=== PATIENT | female | born 1970 | race Caucasian/White ===

== ENCOUNTER 2017-10-09 18:26 | Emergency (ER) | payer SELFPAY ==
[~2017-10-09] VITALS: Ht 160 cm; Wt 101.6 kg
[~2017-10-09 18:26] MED LIST: AGM875T PO; BACL10TA PO; BUSP10TA95 PO; CIPR500T4 PO; DICL75TA2 PO; DOXY100C2 PO; DULO60CA6 PO; FAMO20TA5 PO; FLUC200T PO; GEMF600T3 PO; HYDR-3720 PO; HYDR1TAB PO; MELO7.5T; METF500T4 PO; METO-451 PO; MTP25TSR PO; NF-CYM60C; NYST1000 PO; ONDN4T PO; OXYC1TAB87; ROPI1TAB; SULF1TAB38; SULF1TAB38 PO; VENL75CA PO
--- OUTSIDE RECORDS SUMMARY | 2017-10-09 18:31 | XMS REPORT ---
Author Author MICHELLE VANN [facility] eClinicalWorks Address Unknown Phone Unavailable Care Team Providers Care Paperhanger Name Role Phone MICHELLE VANN Unavailable Allergies No Known Allergies Problems Problem Type Condition Code Onset Dates Condition Status Assessment Depression F32.9 Active Assessment Anxiety F41.9 Active Assessment Degenerative disc disease at L5-S1 level M51.36 Active Assessment Hyperlipidemia 272.4 Active Assessment HTN (hypertension) I10 Active Problem Pain in soft tissues of limb 729.5 Active Assessment Diabetes mellitus E11.9 Active Problem Edema 782.3 Active Problem Depressive disorder, not elsewhere classified 311 Active Problem Hypertension 401.9 Active Problem Type 2 diabetes mellitus 250.00 Active Problem Hyperlipidemia 272.4 Active Problem Anxiety F41.9 Active Problem Depression F32.9 Active Problem Lumbago 724.2 Active Problem Acute pharyngitis 462 Active Problem Degenerative disc disease at L5-S1 level M51.36 Active Problem Other general symptoms 780.99 Active Problem Low back pain M54.5 Active Problem Diabetes type 2, uncontrolled 250.02 Active Problem HTN (hypertension) I10 Active Problem Diabetes mellitus E11.9 Active Problem Unspecified otalgia 388.70 Active Problem Unspecified viral infection, in conditions classified elsewhere and of unspecified site 079.99 Active Problem Routine general medical examination at health care facility V70.0 Active Problem Benign intracranial hypertension 348.2 Active Problem Influenza with other respiratory manifestations 487.1 Active Problem Unspecified otitis media 382.9 Active Problem Pain in joint, upper arm 719.42 Active Problem Restless legs syndrome [RLS] 333.94 Active Medications Medication Code System Code Instructions Start Date End Date Status Dosage Gemfibrozil [facility] [address]-92 600 MG Orally once a day 1 tablet BusPIRone HCl [facility] [address]-15 10 MG Orally Twice a day 1 tablet Hydrocodone-Acetaminophen [facility] [address]-86 10-325 MG Orally every 4-6 hrs. MUST LAST 30 DAYS Jun 25, 2015 1 tablet as needed for pain Effexor XR [facility] [address]-84 75 MG Orally Once a day 1 capsule with food Metoprolol Tartrate [facility] [address]-10 100 MG Orally Twice a day Jul 03, 2015 1 tablet Baclofen [facility] [address]-38 10 MG Orally Three times a day 1 tablet with food or milk MetFORMIN HCl ER [facility] [address]-78 500 MG Orally 2 times a day TAKE ONE TABLET BY MOUTH DAILY Procedures Procedure Coding System Code Date COMPLETE CBC W/AUTO DIFF WBC CPT-4 94607 Jul 24, 2015 COMPREHEN METABOLIC PANEL CPT-4 14723 Jul 24, 2015 GLYCATED HEMOGLOBIN TEST CPT-4 09543 Jul 24, 2015 VENIPUNCT, ROUTINE* CPT-4 42170 Jul 24, 2015 URINALYSIS, AUTO, W/O SCOPE CPT-4 49169 Jul 24, 2015 ASSAY THYROID STIM HORMONE CPT-4 87005 Jul 24, 2015 LIPID PANEL CPT-4 01550 Jul 24, 2015 Office Visit, Est Pt., Level 4 CPT-4 55937 Jul 24, 2015 MICROALBUMIN, SEMIQUANT CPT-4 61167 Jul 24, 2015 Vital Signs Date/Time: Jul 24, 2015 Temperature 98.2 F Weight 220.6 lbs Height 63 in BMI 39.07 Index Blood Pressure Diastolic 80 mmHg Blood Pressure Systolic 130 mmHg Cardiac Monitoring Heart Rate 84 bpm Results Name Result Date Reference Range Unit Abnormality Flag UA LONG DIP (IN HOUSE) ----pH 5.0 20150724 ----BLO Negative 20150724 ----Clarity Cloudy 20150724 ----Color Yellow 20150724 ----Odor NO 20150724 ----GLU Negative 20150724 ----SUMAN Negative 20150724 ----DEEPIKA Negative 20150724 ----NIT Negative 20150724 ----KET Negative 20150724 ----Lot # [id number] [id number] ----SG >=1.030 20150724 ----URO 0.2 E.U. 20150724 ----Exp date 20150724 ----Protein Negative 20150724 ROUTINE VENIPUNCTURE A1C (IN HOUSE) ----A1C IN HOUSE 6.1 20150724 4.30 - 5.6 % ----Previous A1c 6.2 20150724 ----Lot # [id number] ----Exp date 20150724 MICROALBUMIN, URINE (IN HOUSE) ----A:C (IN HOUSE) <30 20150724 ----CRE 300 20150724 ----Color yellow 20150724 ----ALB 30 20150724 ----Exp date 20150724 ----Clarity clear 20150724 ----Lot # [id number] LIPID PANEL ----HDL Cholesterol 36 20150724 >39 mg/dL L ----Triglycerides 840 20150724 0-149 mg/dL HH ----Cholesterol, Total 372 20150724 100-199 mg/dL H CMP ----Glucose, Serum 108 15456113 65-99 mg/dL H ----BUN 10 20150724 6-24 mg/dL ----Creatinine, Serum 0.49 98498043 0.57-1.00 mg/dL L ----Potassium, Serum 4.7 20150724 3.5-5.2 mmol/L ----Chloride, Serum 97 45652825 97-108 mmol/L ----ALT (SGPT) 55 20150724 0-32 IU/L H ----AST (SGOT) 34 20150724 0-40 IU/L ----eGFR If NonAfricn Am 119 63538536 >59 mL/min/1.73 ----Alkaline Phosphatase, S 135 43140933 39-117 IU/L H ----eGFR If Africn Am 137 91333875 >59 mL/min/1.73 ----Bilirubin, Total 0.3 20150724 0.0-1.2 mg/dL ----BUN/Creatinine Ratio 20 20150724 9-23 ----A/G Ratio 1.6 20150724 1.1-2.5 ----Sodium, Serum 137 20150724 134-144 mmol/L ----Carbon Dioxide, Total 25 20150724 18-29 mmol/L ----Calcium, Serum 9.7 86613605 8.7-10.2 mg/dL ----Protein, Total, Serum 6.9 02778333 6.0-8.5 g/dL ----Albumin, Serum 4.2 28949603 3.5-5.5 g/dL ----Globulin, Total 2.7 46452702 1.5-4.5 g/dL TSH ----TSH 1.590 01630300 0.450-4.500 uIU/mL CBC ----Hemoglobin 14.6 86582505 11.1-15.9 g/dL ----RBC 4.70 35555940 3.77-5.28 x10E6/uL ----MCV 92 14072890 79-97 fL ----Hematocrit 43.3 50369397 34.0-46.6 % ----MCHC 33.7 78384401 31.5-35.7 g/dL ----MCH 31.1 06052801 26.6-33.0 pg ----Platelets 391 38699521 150-379 x10E3/uL H ----RDW 13.5 41688442 12.3-15.4 % ----Neutrophils 67 54544267 % ----Monocytes 6 88032575 % ----Lymphs 26 55152101 % ----Basos 0 41664833 % ----Eos 1 03808464 % ----Immature Grans (Abs) 0.0 42703979 0.0-0.1 x10E3/uL ----Lymphs (Absolute) 3.2 20849735 0.7-3.1 x10E3/uL H ----WBC 12.0 18575052 3.4-10.8 x10E3/uL H ----Immature Granulocytes 0 79911825 % ----Neutrophils (Absolute) 7.9 13686290 1.4-7.0 x10E3/uL H ----Baso (Absolute) 0.0 60236779 0.0-0.2 x10E3/uL ----Monocytes(Absolute) 0.7 93022444 0.1-0.9 x10E3/uL ----Eos (Absolute) 0.1 57854773 0.0-0.4 x10E3/uL Summary Purpose eClinicalWorks Submission
--- OUTSIDE RECORDS SUMMARY | 2017-10-09 18:31 | XMS REPORT ---
Author Author TIA MO [facility] eClinicalWorks Address Unknown Phone Unavailable Care Team Providers Care Film Or Tape Librarian Name Role Phone TIA MO CP Unavailable Allergies No Known Allergies Problems Problem Type Condition ICD-9 Code Onset Dates Condition Status Problem Pain in joint, upper arm 719.42 Active Problem Influenza with other respiratory manifestations 487.1 Active Problem Restless legs syndrome [RLS] 333.94 Active Problem Type 2 diabetes mellitus 250.00 Active Problem Hyperlipidemia 272.4 Active Problem Diabetes type 2, uncontrolled 250.02 Active Problem Pain in soft tissues of limb 729.5 Active Problem Unspecified otitis media 382.9 Active Problem Hypertension 401.9 Active Problem Edema 782.3 Active Problem Depressive disorder, not elsewhere classified 311 Active Problem Other general symptoms 780.99 Active Problem Routine general medical examination at health care facility V70.0 Active Problem Benign intracranial hypertension 348.2 Active Problem Acute pharyngitis 462 Active Problem Unspecified otalgia 388.70 Active Problem Lumbago 724.2 Active Problem Unspecified viral infection, in conditions classified elsewhere and of unspecified site 079.99 Active Medications Medication Code System Code Instructions Start Date End Date Status Dosage Hydrocodone-Acetaminophen [facility] [address]-62 10-325 MG October 14, 2014 1 Tablet by Oral route every 4-6 hours must last 30 days. use for pain Results No Known Results Summary Purpose eClinicalWorks Submission
--- OUTSIDE RECORDS SUMMARY | 2017-10-09 18:31 | XMS REPORT ---
Author Author MICHELLE VANN [facility] eClinicalWorks Address Unknown Phone Unavailable Care Team Providers Care Muck Miner Name Role Phone MICHELLE VANN CP Unavailable Allergies No Known Allergies Problems Problem Type Condition Code Onset Dates Condition Status Problem Hypertension 401.9 Active Problem Type 2 diabetes mellitus 250.00 Active Problem Hyperlipidemia 272.4 Active Problem Anxiety F41.9 Active Problem Lumbago 724.2 Active Problem Depression F32.9 Active Problem Acute pharyngitis 462 Active Problem Other general symptoms 780.99 Active Problem Degenerative disc disease at L5-S1 level M51.36 Active Problem Low back pain M54.5 Active [...] in joint, upper arm 719.42 Active Problem Pain in soft tissues of limb 729.5 Active Problem Depressive disorder, not elsewhere classified 311 Active Problem Restless legs syndrome [RLS] 333.94 Active Problem Edema 782.3 Active Medications Medication Code System Code Instructions Start Date End Date Status Dosage Hydrocodone-Acetaminophen [facility] [address]-56 10-325 MG Orally every 4-6 hrs Jun 25, 2015 1 tablet as needed for pain Results No Known Results Summary Purpose eClinicalWorks Submission
--- OUTSIDE RECORDS SUMMARY | 2017-10-09 18:31 | XMS REPORT ---
Author Author CHIOMA TELLEZ [facility] Address [address] [place] [address] Care Team Providers Care Ham Marker Name Role Phone CHIOMA TELLEZ Unavailable PROBLEMS Type Condition ICD9-CM Code [id number] Code Onset Dates Condition Status SNOMED Code Problem Tachycardia R00.0 Active 1687186 Problem Hyperlipidemia E78.5 Active 32147630 Problem Hypertension I10 Active 92744501 Problem Hyperlipidemia, mixed E78.2 Active 714453966 Problem Hypertension, benign I10 Active 27750532 Problem Essential hypertension I10 Active 22311312 Problem Restless leg syndrome G25.81 Active 51638819 Problem Controlled type 2 diabetes mellitus without complication, without long -term current use of insulin E11.9 Active 534906900 Problem Mixed hyperlipidemia E78.2 Active 031703754 Problem HTN (hypertension) I10 Active 87376437 Problem Depression F32.9 Active 79595000 Problem Low back pain M54.5 Active 883618726 Problem Anxiety F41.9 Active 12781380 Problem Diabetes mellitus E11.9 Active 56342978 Problem Degenerative disc disease at L5-S1 level M51.36 Active 10790108 ALLERGIES No Information SOCIAL HISTORY Never Assessed PLAN OF CARE VITAL SIGNS MEDICATIONS Unknown Medications RESULTS No Results PROCEDURES No Known procedures IMMUNIZATIONS No Known Immunizations MEDICAL (GENERAL) HISTORY Type Description Date Medical History Hypertension Medical History obesity Medical History Type 2 Diabetes Medical History Hyperlipidemia Medical History PCOS Medical History skin disorder 03/16/11 Recurrent left breast mass & breast US at reveals addition cyst 7-6 o clock position inferior to nipple with nipple retraction Medical History breast abscess left causing left nipple retraction I & D by Dr. dumont in ER Medical History Depression Surgical History Cholecystectomy 1993 Surgical History Tonsillectomy Surgical History Bladder surgery Surgical History Breast surgery Surgical History section Hospitalization History past surgery
--- OUTSIDE RECORDS SUMMARY | 2017-10-09 18:32 | XMS REPORT ---
Author Author MICHELLE VANN Organization [facility] Address [address] [place] [address] Care Team Providers Care Power Equipment Mechanics Instructor Name Role Phone MICHELLE VANN Unavailable PROBLEMS Type Condition ICD9-CM Code [id number] Code Onset Dates Condition Status SNOMED Code Problem Tachycardia R00.0 Active 8656686 Problem Hypertension I10 Active 16395485 Problem Hyperlipidemia E78.5 Active 17561961 Problem Hyperlipidemia, mixed E78.2 Active 707653624 Problem Hypertension, benign I10 Active 98806440 Problem Essential hypertension I10 Active 86792002 Problem Restless leg syndrome G25.81 Active 21699808 Problem Mixed hyperlipidemia E78.2 Active 026523573 Problem Controlled type 2 diabetes mellitus without complication, without long -term current use of insulin E11.9 Active 554670019 Problem HTN (hypertension) I10 Active 72360539 Problem Depression F32.9 Active 13817631 Problem Low back pain M54.5 Active 929250694 Problem Anxiety F41.9 Active 26776138 Problem Diabetes mellitus E11.9 Active 63904431 Problem Degenerative disc disease at L5-S1 level M51.36 Active 56774783 ALLERGIES Unknown Allergies SOCIAL HISTORY No smoking Hx information available PLAN OF CARE VITAL SIGNS MEDICATIONS Unknown Medications RESULTS No Results PROCEDURES No Known procedures IMMUNIZATIONS No Known Immunizations
--- OUTSIDE RECORDS SUMMARY | 2017-10-09 18:32 | XMS REPORT ---
Author Author CHIOMA TELLEZ Organization [facility] Address [address] [place] [address] Care Team Providers Care Bone Worker Name Role Phone CHIOMA TELLEZ Unavailable PROBLEMS Type Condition ICD9-CM Code [id number] Code Onset Dates Condition Status SNOMED Code Problem Tachycardia R00.0 Active 4171805 Problem Hyperlipidemia E78.5 Active 65661508 Problem Hypertension I10 Active 80730443 Problem Hyperlipidemia, mixed E78.2 Active 149580116 Problem Hypertension, benign I10 Active 62047473 Problem Essential hypertension I10 Active 77897455 Problem Restless leg syndrome G25.81 Active 35626808 Problem Controlled type 2 diabetes mellitus without complication, without long -term current use of insulin E11.9 Active 257695861 Problem Mixed hyperlipidemia E78.2 Active 229551532 Problem HTN (hypertension) I10 Active 89396276 Problem Depression F32.9 Active 40554257 Problem Low back pain M54.5 Active 598625193 Problem Anxiety F41.9 Active 53250751 Problem Diabetes mellitus E11.9 Active 94634622 Problem Degenerative disc disease at L5-S1 level M51.36 Active 56049632 ALLERGIES No Information SOCIAL HISTORY Never Assessed PLAN OF CARE VITAL SIGNS MEDICATIONS Medication Instructions Dosage Frequency Start Date End Date Duration Status Hydrocodone-Acetaminophen 10-325 MG Orally 4 times a day 1 tablet as needed for pain 6h Sep, 28 days Active RESULTS No Results PROCEDURES No Known procedures [...]
--- OUTSIDE RECORDS SUMMARY | 2017-10-09 18:32 | XMS REPORT ---
Author Author MICHELLE VANN [facility] eClinicalWorks Address Unknown Phone Unavailable Care Team Providers Care Smasher Name Role Phone MICHELLE VANN CP Unavailable Allergies, Adverse Reactions, Alerts Substance Reaction Event Type N.K.D.A. Info Not Available Non Drug Allergy Problems Problem Type Condition Code Onset Dates Condition Status Assessment Diabetes mellitus E11.9 Active Problem Restless legs syndrome [RLS] 333.94 Active Assessment HTN (hypertension) I10 Active Problem Influenza with other respiratory manifestations 487.1 Active Assessment Adenopathy R59.1 Active Problem Unspecified otitis media 382.9 Active Problem Edema 782.3 Active Problem Pain in soft tissues of limb 729.5 Active Problem Diabetes mellitus E11.9 Active Problem Low back pain M54.5 Active Problem Depressive disorder, not elsewhere classified 311 Active Assessment Calculus of tonsil J35.8 Active Problem HTN (hypertension) I10 Active Assessment Sore throat J02.9 Active Problem Hyperlipidemia 272.4 Active Problem Hypertension 401.9 Active Problem Diabetes type 2, uncontrolled 250.02 Active Problem Type 2 diabetes mellitus 250.00 Active Problem Lumbago 724.2 Active Problem Routine general medical examination at health care facility V70.0 Active Problem Other general symptoms 780.99 Active Problem Acute pharyngitis 462 Active Problem Unspecified viral infection, in conditions classified elsewhere and of unspecified site 079.99 Active Problem Pain in joint, upper arm 719.42 Active Problem Benign intracranial hypertension 348.2 Active Problem Unspecified otalgia 388.70 Active Medications Medication Code System Code Instructions Start Date End Date Status Dosage Metoprolol Tartrate [facility] [address]-77 100 MG Orally Twice a day Jul 03, 2015 1 tablet Hydrocodone-Acetaminophen [facility] [address]-48 10-325 MG Orally every 4-6 hrs. MUST LAST 30 DAYS Jun 25, 2015 1 tablet as needed for pain Effexor XR [facility] [address]-16 75 MG Orally Once a day 1 capsule with food BusPIRone HCl [facility] [address]-42 10 MG Orally Twice a day 1 tablet Augmentin [facility] [address]-61 875-125 MG Orally every 12 hrs Jul 03, 2015 Jul 13, 2015 1 tablet MetFORMIN HCl ER [facility] [address]-87 500 MG Orally 2 times a day TAKE ONE TABLET BY MOUTH DAILY Diflucan [facility] [address]-42 100 MG Orally Jul 03, 2015 Jul 10, 2015 1 tablet Metoprolol Tartrate [facility] [address]-01 50 MG Orally Twice a day 1 tablet Gemfibrozil [facility] [address]-71 600 MG Orally once a day 1 tablet Blood Glucose Monitor [facility] 0 March 04, 2015 not defined Baclofen [facility] [address]-84 10 MG Orally Three times a day 1 tablet with food or milk Procedures Procedure Coding System Code Date Office Visit, Est Pt., Level 4 CPT-4 66030 Jul 03, 2015 MANUAL CELL COUNT, EACH CPT-4 00897 Jul 03, 2015 HETEROPHILE ANTIBODIES CPT-4 68623 Jul 03, 2015 STREP A ASSAY W/OPTIC CPT-4 64756 Jul 03, 2015 VENIPUNCT, ROUTINE* CPT-4 82442 Jul 03, 2015 THER/PROPH/DIAG INJ, SC/IM CPT-4 93623 Jul 03, 2015 DEXAMETHASONE 4MG/ML (PER 1 MG) CPT-4 J1100 Jul 03, 2015 Vital Signs Date/Time: Jul 03, 2015 Temperature 98.0 F Weight 221.6 lbs Height 63 in BMI 39.25 Index Blood Pressure Diastolic 94 mmHg Blood Pressure Systolic 150 mmHg Cardiac Monitoring Heart Rate 72 bpm Results Name Result Date Reference Range Unit Abnormality Flag ROUTINE VENIPUNCTURE MONO TEST (IN HOUSE) ----RESULTS negative [id number] ----Control + 20150703 ----Lot # [id number] ----Exp date 07/06/201620150703 STREP A (IN HOUSE) ----Exp date 07/06/201620150703 ----Control + 20150703 ----Lot # [id number] [id number] ----STREP A negative [id number] Summary Purpose eClinicalWorks Submission
--- OUTSIDE RECORDS SUMMARY | 2017-10-09 18:32 | XMS REPORT ---
Author Author MICHELLE VANN [facility] eClinicalWorks Address Unknown Phone Unavailable Care Team Providers Care Automobile Assembly Supervisor Name Role Phone MICHELLE VANN Unavailable Allergies No Known Allergies Problems Problem Type Condition Code Onset Dates Condition Status Problem Diabetes mellitus E11.9 Active Problem Depression F32.9 Active Problem HTN (hypertension) I10 Active Problem Low back pain M54.5 Active Problem Restless leg syndrome G25.81 Active Problem Hypertension I10 Active Problem Essential hypertension I10 Active Problem Degenerative disc disease at L5-S1 level M51.36 Active Problem Anxiety F41.9 Active Problem Hyperlipidemia E78.5 Active Problem Tachycardia R00.0 Active Medications Medication Code System Code Instructions Start Date End Date Status Dosage Effexor XR [facility] [address]-85 75 MG Orally Once a day 1 capsule with food Results No Known Results Summary Purpose eClinicalWorks Submission
--- OUTSIDE RECORDS SUMMARY | 2017-10-09 18:32 | XMS REPORT ---
Author Author CHIOMA TELLEZ [facility] Address [address] [place] [address] Care Team Providers Care Wildlife Management Professor Name Role Phone CHIOMA TELLEZ Unavailable PROBLEMS Type Condition ICD9-CM Code [id number] Code Onset Dates Condition Status SNOMED Code Problem HTN (hypertension) I10 Active 10103781 Problem Anxiety F41.9 Active 40329970 Problem Depression F32.9 Active 41588073 Problem Low back pain M54.5 Active 630803151 Problem Diabetes mellitus E11.9 Active 07542416 Problem Essential hypertension I10 Active 74352552 Problem Restless leg syndrome G25.81 Active 24055129 Problem Tachycardia R00.0 Active 8105552 Problem Degenerative disc disease at L5-S1 level M51.36 Active 90421336 Problem Hypertension I10 Active 09244098 Problem Hyperlipidemia E78.5 Active 77019925 ALLERGIES Unknown Allergies SOCIAL HISTORY No smoking Hx information available PLAN OF CARE VITAL SIGNS MEDICATIONS Medication Instructions Dosage Frequency Start Date End Date Duration Status Hydrocodone-Acetaminophen 10-325 MG Orally 4 times a day 1 tablet as needed for pain 6h Jun, 28 days Active RESULTS No Results PROCEDURES No Known procedures IMMUNIZATIONS No Known Immunizations
--- OUTSIDE RECORDS SUMMARY | 2017-10-09 18:32 | XMS REPORT ---
Author Author CHIOMA TELLEZ [facility] Address [address] [place] [address] Care Team Providers Care Developer Prover Upholstering Name Role Phone ROSALINDA CHIOMA Unavailable PROBLEMS Type Condition ICD9-CM Code [id number] Code Onset Dates Condition Status SNOMED Code Problem Tachycardia R00.0 Active 2664338 Problem Hyperlipidemia E78.5 Active 38290016 Problem Hypertension I10 Active 43207470 Problem Hyperlipidemia, mixed E78.2 Active 694593648 Problem Hypertension, benign I10 Active 85782276 Problem Essential hypertension I10 Active 16592924 Problem Restless leg syndrome G25.81 Active 83542318 Problem Controlled type 2 diabetes mellitus without complication, without long -term current use of insulin E11.9 Active 852112512 Problem Mixed hyperlipidemia E78.2 Active 276545698 Problem HTN (hypertension) I10 Active 23035979 Problem Depression F32.9 Active 84741693 Problem Low back pain M54.5 Active 410789082 Problem Anxiety F41.9 Active 57702051 Problem Diabetes mellitus E11.9 Active 17496425 Problem Degenerative disc disease at L5-S1 level M51.36 Active 67473173 ALLERGIES Unknown Allergies SOCIAL HISTORY No smoking Hx information available PLAN OF CARE VITAL SIGNS MEDICATIONS Medication Instructions Dosage Frequency Start Date End Date Duration Status Hydrocodone-Acetaminophen 10-325 MG Orally 4 times a day 1 tablet as needed for pain 6h Aug, 28 days Active RESULTS No Results PROCEDURES No Known procedures IMMUNIZATIONS No Known Immunizations
--- OUTSIDE RECORDS SUMMARY | 2017-10-09 18:32 | XMS REPORT ---
Author Author TIA MO [facility] eClinicalWorks Address Unknown Phone Unavailable Care Team Providers Care Ehs Teacher Name Role Phone TIA MO CP Unavailable [...] Instructions Start Date End Date Status Dosage MetFORMIN HCl [facility] [address]-07 500 MG Orally 2 times a day TAKE ONE TABLET BY MOUTH DAILY Results No Known Results Summary Purpose eClinicalWorks Submission
--- OUTSIDE RECORDS SUMMARY | 2017-10-09 18:32 | XMS REPORT ---
Author Author CHIOMA TELLEZ [facility] Address [address] [place] [address] Care Team Providers Care Assistant Construction Superintendent Name Role Phone CHIOMA TELLEZ Unavailable PROBLEMS Type Condition ICD9-CM Code YYY46-CT Code Onset Dates Condition Status SNOMED Code Problem Tachycardia R00.0 Active 7154868 Problem Hyperlipidemia E78.5 Active 58405165 Problem Hypertension I10 Active 16547544 Problem Hyperlipidemia, mixed E78.2 Active 091438700 Problem Hypertension, benign I10 Active 19936597 Problem Essential hypertension I10 Active 32723276 Problem Restless leg syndrome G25.81 Active 86759320 Problem Controlled type 2 diabetes mellitus without complication, without long -term current use of insulin E11.9 Active 456887448 Problem Mixed hyperlipidemia E78.2 Active 881876278 Problem HTN (hypertension) I10 Active 68353208 Problem Depression F32.9 Active 75128335 Problem Low back pain M54.5 Active 547974788 Problem Anxiety F41.9 Active 00835302 Problem Diabetes mellitus E11.9 Active 79369396 Problem Degenerative disc disease at L5-S1 level M51.36 Active 45411410 ALLERGIES No Known Allergies SOCIAL HISTORY Never Assessed PLAN OF CARE Activity Details Follow Up 10 days Reason:staple removal VITAL SIGNS Height 63 in 2016-09-20 Weight 227.0 lbs 2016-09-20 Temperature 98.5 degrees Fahrenheit 2016-09-20 Heart Rate 88 bpm 2016-09-20 Respiratory Rate 20 2016-09-20 BMI 40.21 kg/m2 2016-09-20 Blood pressure systolic 150 mmHg 2016-09-20 Blood pressure diastolic 93 mmHg 2016-09-20 MEDICATIONS Medication Instructions Dosage Frequency Start Date End Date Duration Status Baclofen 10 mg 1 tablet 8h Active Effexor XR 75 MG Orally Once a day 1 capsule with food 24h 30 days Active MetFORMIN HCl ER 500 MG 1 tablet 12h Active Ibuprofen 200 MG Orally every 6 hrs 2 tablets as needed 6h Active Simvastatin 20 mg Orally Once a day 1 tablet in the evening 24h 16 Aug, 2017 30 day(s) Active Hydrocodone-Acetaminophen 10-325 MG Orally 4 times a day 1 tablet as needed for pain 6h Aug, 28 days Active Requip 3 MG 1 tablet 24h Active Metoprolol Tartrate 100 MG Orally Twice a day 1 tablet 12h Active RESULTS Name Result Date Reference Range PDF Report 2016-09-20 PDF Report1 [facility]Y REPORT 2016-09-20 . . . . . . . . PROCEDURES Procedure Date Ordered Result Body Site EXC BENIGN LEISON 0.6-1 cm (specify location) 2016-09-20 N/A BIOPSY SKIN LESION (SINGLE) 2016-09-20 N/A EXC TR-EXT B9 TAL 0.6-1 CM Sep 20, 2016 BIOPSY OF SKIN LESION Sep 20, 2016 IMMUNIZATIONS No Known Immunizations MEDICAL (GENERAL) HISTORY [...]
--- OUTSIDE RECORDS SUMMARY | 2017-10-09 18:32 | XMS REPORT ---
Author Author MICHELLE VANN [facility] eClinicalWorks Address Unknown Phone Unavailable Care Team Providers Care Production Weigher Name Role Phone MICHELLE VANN CP Unavailable [...] Instructions Start Date End Date Status Dosage Atorvastatin Calcium [facility] [address]-12 10 MG Orally Once a day Jul 27, 2015 1 tablet Lopid [facility] [address]-81 600 MG Orally Twice a day Jul 27, 2015 1 tablet Results No Known Results Summary Purpose eClinicalWorks Submission
--- OUTSIDE RECORDS SUMMARY | 2017-10-09 18:32 | XMS REPORT ---
Author Author MADHU BALDERAS [facility] eClinicalWorks Address Unknown Phone Unavailable Care Team Providers Care Metallurgist Helper Name Role Phone MADHU BALDERAS CP Unavailable Allergies, Adverse Reactions, Alerts Substance Reaction Event Type N.K.D.A. Info Not Available Non Drug Allergy Problems Problem Type Condition Code Onset Dates Condition Status Problem Low back pain M54.5 Active Problem HTN (hypertension) I10 Active Problem Diabetes mellitus E11.9 Active Assessment Sore throat J02.9 Active Problem Hypertension I10 Active Problem Hyperlipidemia E78.5 Active Problem Restless leg syndrome G25.81 Active Problem Anxiety F41.9 Active Problem Depression F32.9 Active Problem Tachycardia R00.0 Active Problem Degenerative disc disease at L5-S1 level M51.36 Active Medications Medication Code System Code Instructions Start Date End Date Status Dosage Acyclovir [facility] [address]-99 400 MG Orally Three times a day Mar 23, 2016 1 tablet MetFORMIN HCl ER [facility] [address]-45 500 MG Orally 2 times a day TAKE ONE TABLET BY MOUTH DAILY Zocor [facility] [address]-23 10 mg Orally Once a day October 27, 2015 1 tablet in the evening Requip [facility] [address]-80 3 MG Orally Once a day November 24, 2015 1 tablet 1 to 3 hours before bedtime Blood Glucose Monitor [facility] 0 March 04, 2015 not defined Hydrocodone-Acetaminophen [facility] [address]-39 10-325 MG Orally 4 times a day Jun 25, 2015 1 tablet as needed for pain Effexor XR [facility] [address]-89 75 MG TAKE ONE CAPSULE BY MOUTH ONCE DAILY WITH FOOD Ibuprofen [facility] [address]-19 200 MG Orally every 6 hrs 2 tablets as needed Baclofen [facility] [address]-17 10 mg Orally Three times a day 1 tablet with food or milk Lopid [facility] [address]-07 600 MG Orally Twice a day Jul 27, 2015 1 tablet Metoprolol Tartrate [facility] 69216853785 100 MG Orally Twice a day 1 tablet Procedures Procedure Coding System Code Date Office Visit, Est Pt., Level 3 CPT-4 07680 Mar 23, 2016 STREP A ASSAY W/OPTIC CPT-4 41607 Mar 23, 2016 Vital Signs Date/Time: Mar 23, 2016 Cardiac Monitoring Heart Rate 90 bpm Weight 214.3 lbs Height 63 in BMI 37.96 Index Blood Pressure Diastolic 82 mmHg Blood Pressure Systolic 136 mmHg Results No Known Results Summary Purpose eClinicalWorks Submission
--- OUTSIDE RECORDS SUMMARY | 2017-10-09 18:32 | XMS REPORT ---
Author Author DOTNE KRISHNAN Organization eClinicalWorks Address Unknown Phone Unavailable Care Team Providers Care Diamond Cutter Name Role Phone DONTE KRISHNAN CP Unavailable Allergies No Known Allergies Problems Problem Type Condition Code Onset Dates Condition Status Problem Pain [...] and of unspecified site 079.99 Active Medications No Known Medications Results No Known Results Summary Purpose eClinicalWorks Submission
--- OUTSIDE RECORDS SUMMARY | 2017-10-09 18:33 | XMS REPORT ---
Author Author MICHELLE VANN [facility] eClinicalWorks Address Unknown Phone Unavailable Care Team Providers Care Cna Instructor Name Role Phone MICHELLE VANN CP Unavailable Allergies, Adverse Reactions, Alerts Substance Reaction Event Type N.K.D.A. Info Not Available Non Drug Allergy Problems Problem Type Condition Code Onset Dates Condition Status Problem Diabetes mellitus E11.9 Active Problem Depression F32.9 Active Problem HTN (hypertension) I10 Active Problem Restless leg syndrome G25.81 Active Problem Hypertension I10 Active Problem Essential hypertension I10 Active Problem Degenerative disc disease at L5-S1 level M51.36 Active Problem Anxiety F41.9 Active Problem Hyperlipidemia E78.5 Active Problem Tachycardia R00.0 Active Assessment Essential hypertension I10 Active Assessment Hyperlipidemia E78.5 Active Assessment History of kidney stones Z87.442 Active Assessment Anxiety F41.9 Active Assessment Diabetes mellitus E11.9 Active Assessment Restless leg syndrome G25.81 Active Assessment Low back pain M54.5 Active Assessment Depression F32.9 Active Problem Low back pain M54.5 Active Medications Medication Code System Code Instructions Start Date End Date Status Dosage Zocor [facility] [address]-05 10 mg Orally Once a day October 27, 2015 1 tablet in the evening Effexor XR [facility] [address]-46 75 MG TAKE ONE CAPSULE BY MOUTH ONCE DAILY WITH FOOD Baclofen [facility] [address]-71 10 mg Orally Three times a day 1 tablet with food or milk Ibuprofen [facility] [address]-71 200 MG Orally every 6 hrs 2 tablets as needed MetFORMIN HCl ER [facility] [address]-16 500 MG Orally 2 times a day TAKE ONE TABLET BY MOUTH DAILY Metoprolol Tartrate [facility] 36326298263 100 MG Orally Twice a day 1 tablet Requip [facility] [address]-71 3 MG Orally Once a day November 24, 2015 1 tablet 1 to 3 hours before bedtime Hydrocodone-Acetaminophen [facility] [address]-17 10-325 MG Orally 4 times a day Jun 25, 2015 1 tablet as needed for pain Procedures Procedure Coding System Code Date GLYCATED HEMOGLOBIN TEST CPT-4 69554 May 26, 2016 COMPREHEN METABOLIC PANEL CPT-4 96109 May 26, 2016 URINALYSIS, AUTO, W/O SCOPE CPT-4 61808 May 26, 2016 LIPID PANEL CPT-4 94767 May 26, 2016 COMPLETE CBC W/AUTO DIFF WBC CPT-4 60084 May 26, 2016 VENIPUNCT, ROUTINE* CPT-4 55467 May 26, 2016 Office Visit, Est Pt., Level 4 CPT-4 21001 May 26, 2016 Vital Signs Date/Time: May 26, 2016 Cardiac Monitoring Heart Rate 60 bpm Weight 216.8 lbs Height 63 in BMI 38.40 Index Blood Pressure Diastolic 90 mmHg Blood Pressure Systolic 138 mmHg Results Name Result Date Reference Range Unit Abnormality Flag ROUTINE VENIPUNCTURE CBC ----Basos 0 25196390 % ----MCV 94 41167608 79-97 fL ----Hematocrit 42.2 97354297 34.0-46.6 % ----Eos 1 32548283 % ----MCHC 32.9 01379153 31.5-35.7 g/dL ----Monocytes 9 14724479 % ----MCH 31.0 15791227 26.6-33.0 pg ----Lymphs 27 15128056 % ----Eos (Absolute) 0.1 86537920 0.0-0.4 x10E3/uL ----WBC 7.0 59376668 3.4-10.8 x10E3/uL ----Monocytes(Absolute) 0.7 87757423 0.1-0.9 x10E3/uL ----Lymphs (Absolute) 1.9 14278898 0.7-3.1 x10E3/uL ----Hemoglobin 13.9 92687049 11.1-15.9 g/dL ----Neutrophils (Absolute) 4.3 02785176 1.4-7.0 x10E3/uL ----RBC 4.49 02935094 3.77-5.28 x10E6/uL ----Immature Grans (Abs) 0.0 80079972 0.0-0.1 x10E3/uL ----Immature Granulocytes 0 37892905 % ----Neutrophils 63 48636100 % ----Baso (Absolute) 0.0 45234053 0.0-0.2 x10E3/uL ----RDW 13.6 42698660 12.3-15.4 % ----Platelets 366 52855357 150-379 x10E3/uL A1C (IN HOUSE) ----A1C IN HOUSE 6.0 01369172 4.3 - 5.6 % ----Previous A1c 5.6 33181708 ----Lot [id number] ----Exp date 03/20181020 UA LONG DIP (IN HOUSE) ----DEEPI[place] NEGATIVE 53346039 ----GLU NEGATIVE 73762042 ----SG 1.020 19867459 ----KET NEGATIVE 52562669 ----pH 7.0 00163284 ----Protein NEGATIVE 22120822 ----BLO NEGATIVE 77518687 ----SUMAN NEGATIVE 55051827 ----Color Cloudy 34970202 ----Odor no 02364984 ----Exp date 04/2017 [id number] ----URO 0.2 25604880 ----NIT NEGATIVE 24925389 ----Clarity clear 02930015 ----Lot # [id number] LIPID PANEL ----LDL Cholesterol Calc 127 79258129 0-99 mg/dL H ----VLDL Cholesterol Asa 74 73760638 5-40 mg/dL H ----HDL Cholesterol 32 89187124 >39 mg/dL L ----Triglycerides 368 11637471 0-149 mg/dL H ----Cholesterol, Total 233 78214514 100-199 mg/dL H CMP ----Creatinine, Serum 0.52 41254602 0.57-1.00 mg/dL L ----BUN 9 29789390 6-24 mg/dL ----eGFR If Africn Am 133 28288004 >59 mL/min/1.73 ----eGFR If NonAfricn Am 116 86337361 >59 mL/min/1.73 ----Sodium, Serum 140 87829529 136-144 mmol/L ----BUN/Creatinine Ratio 17 26160355 9-23 ----Chloride, Serum 100 58993673 97-106 mmol/L ----Potassium, Serum 4.3 72865809 3.5-5.2 mmol/L ----Carbon Dioxide, Total 24 99771572 18-29 mmol/L ----Protein, Total, Serum 6.7 92831466 6.0-8.5 g/dL ----Calcium, Serum 9.1 57466434 8.7-10.2 mg/dL ----Globulin, Total 2.7 48428821 1.5-4.5 g/dL ----Albumin, Serum 4.0 35903187 3.5-5.5 g/dL ----Bilirubin, Total 0.2 42581260 0.0-1.2 mg/dL ----Glucose, Serum 110 24559553 65-99 mg/dL H ----A/G Ratio 1.5 52545779 1.1-2.5 ----ALT (SGPT) 28 10344991 0-32 IU/L ----Alkaline Phosphatase, S 113 42976795 39-117 IU/L ----AST (SGOT) 16 35155396 0-40 IU/L Summary Purpose eClinicalWorks Submission
--- OUTSIDE RECORDS SUMMARY | 2017-10-09 18:33 | XMS REPORT ---
Author Author SHELLIE SCHNEIDER [facility] eClinicalWorks Address Unknown Phone Unavailable Care Team Providers Care Rivet Flunky Name Role Phone SHELLIE SCHNEIDER CP Unavailable Allergies, Adverse Reactions, Alerts Substance Reaction Event Type N.K.D.A. Info Not Available Non Drug Allergy Problems Problem Type Condition Code Onset Dates Condition Status Problem Low back pain M54.5 Active Problem HTN (hypertension) I10 Active Problem Diabetes mellitus E11.9 Active Problem Hypertension I10 Active Problem Hyperlipidemia E78.5 Active Problem Restless leg syndrome G25.81 Active Problem Anxiety F41.9 Active Problem Depression F32.9 Active Problem Tachycardia R00.0 Active Problem Degenerative disc disease at L5-S1 level M51.36 Active Assessment Exertional shortness of breath R06.02 Active Assessment Palpitations R00.2 Active Assessment Pain in unspecified joint M25.50 Active Assessment Low back pain M54.5 Active Assessment Hyperlipidemia E78.5 Active Assessment Hypertension I10 Active Assessment Tobacco use Z72.0 Active Assessment Diabetes mellitus E11.9 Active Assessment Obesity E66.9 Active Assessment Chest discomfort R07.89 Active Medications Medication Code System Code Instructions Start Date End Date Status Dosage Effexor XR [facility] [address]-13 75 MG Orally Once a day 1 capsule with food Ropinirole HCl [facility] [address]-30 2 MG Orally Once a day October 26, 2015 1 tablet 1-3 hours before bed Ibuprofen [facility] [address]-05 200 MG Orally every 6 hrs 2 tablets as needed Zocor [facility] [address]-15 10 MG Orally Once a day October 27, 2015 1 tablet in the evening Lopid [facility] [address]-38 600 MG Orally Twice a day Jul 27, 2015 1 tablet MetFORMIN HCl ER [facility] [address]-51 500 MG Orally 2 times a day TAKE ONE TABLET BY MOUTH DAILY Hydrocodone-Acetaminophen [facility] [address]-87 10-325 MG Orally every 4-6 hrs Jun 25, 2015 1 tablet as needed for pain Metoprolol Tartrate [facility] [address]-16 100 MG Orally Twice a day Jul 03, 2015 1 tablet Blood Glucose Monitor [facility] 0 March 04, 2015 not defined Procedures Procedure Coding System Code Date Office Visit, Est Pt., Level 5 CPT-4 49175 November 18, 2015 MEASURE BLOOD OXYGEN LEVEL CPT-4 42995 November 18, 2015 Vital Signs Date/Time: November 18, 2015 Cardiac Monitoring Heart Rate 72 bpm Weight 220 lbs Height 63 in BMI 38.97 Index Oximetry 98 % Blood Pressure Diastolic 82 mmHg Blood Pressure Systolic 124 mmHg Results No Known Results Summary Purpose eClinicalWorks Submission
--- OUTSIDE RECORDS SUMMARY | 2017-10-09 18:33 | XMS REPORT ---
Author Author MICHELLE VANN Organization [facility] Address [address] [place] [address] Care Team Providers Care Locomotive Engineer Name Role Phone SOO MICHELLE Unavailable PROBLEMS Type Condition ICD9-CM Code NUD78-BH Code Onset Dates Condition Status SNOMED Code Problem Tachycardia R00.0 Active 5985724 Problem Hypertension I10 Active 43667204 Problem Hyperlipidemia E78.5 Active 56034457 Problem Hyperlipidemia, mixed E78.2 Active 041189225 Problem Hypertension, benign I10 Active 73298380 Problem Essential hypertension I10 Active 81728713 Problem Restless leg syndrome G25.81 Active 07949009 Problem Mixed hyperlipidemia E78.2 Active 921433429 Problem Controlled type 2 diabetes mellitus without complication, without long -term current use of insulin E11.9 Active 672985749 Problem HTN (hypertension) I10 Active 82595509 Problem Depression F32.9 Active 65910708 Problem Low back pain M54.5 Active 791939521 Problem Anxiety F41.9 Active 08025118 Problem Diabetes mellitus E11.9 Active 11471723 Problem Degenerative disc disease at L5-S1 level M51.36 Active 43953484 ALLERGIES Unknown Allergies SOCIAL HISTORY No smoking Hx information available PLAN OF CARE VITAL SIGNS MEDICATIONS Medication Instructions Dosage Frequency Start Date End Date Duration Status Hydrocodone-Acetaminophen 10-325 MG Orally 4 times a day 1 tablet as needed for pain 6h Aug, Aug, 14 days Active RESULTS No Results PROCEDURES No Known procedures IMMUNIZATIONS No Known Immunizations
--- OUTSIDE RECORDS SUMMARY | 2017-10-09 18:33 | XMS REPORT ---
Author Author TIA MO [facility] eClinicalWorks Address Unknown Phone Unavailable Care Team Providers Care Payroll And Benefits Analyst Name Role Phone TIA MO CP Unavailable [...] Active Problem Other general symptoms 780.99 Active Assessment Lumbago M54.5 Active Problem Routine general medical examination at health care facility V70.0 Active Problem Benign intracranial hypertension 348.2 Active Problem Acute pharyngitis 462 Active Problem Unspecified otalgia 388.70 Active Problem Lumbago 724.2 Active Problem Unspecified viral infection, in conditions classified elsewhere and of unspecified site 079.99 Active Medications Medication Code System Code Instructions Start Date End Date Status Dosage Hydrocodone-Acetaminophen [facility] [address]-77 10-325 MG Orally every 4-6 hrs October 14, 2014 May 27, 2015 1 Tablet by Oral route every 4-6 hours must last 30 days. use for pain Results No Known Results Summary Purpose eClinicalWorks Submission
--- OUTSIDE RECORDS SUMMARY | 2017-10-09 18:33 | XMS REPORT ---
Author Author DALLAS BALBUENA [facility] eClinicalWorks Address Unknown Phone Unavailable Care Team Providers Care Manager Social Services Name Role Phone DALLAS BALBUENA CP Unavailable Allergies, Adverse Reactions, Alerts Substance Reaction Event Type N.K.D.A. Info Not Available Non Drug Allergy Problems Problem Type Condition Code Onset Dates Condition Status Problem Restless legs syndrome [RLS] 333.94 Active Problem Unspecified otitis media 382.9 Active Problem Influenza with other respiratory manifestations 487.1 Active Problem Diabetes type 2, uncontrolled 250.02 Active Assessment Bartholin cyst N75.0 Active Problem Type 2 diabetes mellitus 250.00 Active Problem Low back pain M54.5 Active Problem Edema 782.3 Active Problem Pain in soft tissues of limb 729.5 Active Problem Hyperlipidemia 272.4 Active Problem Hypertension 401.9 Active Problem Other general symptoms 780.99 Active Problem Acute pharyngitis 462 Active Assessment Acute pharyngitis, unspecified J02.9 Active Problem Depressive disorder, not elsewhere classified 311 Active Problem Benign intracranial hypertension 348.2 Active Problem Unspecified otalgia 388.70 Active Problem Lumbago 724.2 Active Problem Unspecified viral infection, in conditions classified elsewhere and of unspecified site 079.99 Active Problem Routine general medical examination at health care facility V70.0 Active Problem Pain in joint, upper arm 719.42 Active Medications Medication Code System Code Instructions Start Date End Date Status Dosage Fluconazole [facility] [address]-03 150 MG Orally Once a day Jun 26, 2015Jun 1 tablet Baclofen [facility] [address]-32 10 MG Orally Three times a day 1 tablet with food or milk BusPIRone HCl [facility] [address]-59 10 MG Orally Twice a day 1 tablet Hydrocodone-Acetaminophen [facility] [address]-95 10-325 MG Orally every 4-6 hrs. MUST LAST 30 DAYS Jun 25, 2015 1 tablet as needed for pain Gemfibrozil [facility] [address]-17 600 MG Orally once a day 1 tablet Cipro [facility] [address]-68 500 MG Orally Twice a day Jun 26, 2015 Jul 01, 2015 1 tablet MetFORMIN HCl ER [facility] [address]-10 500 MG Orally 2 times a day TAKE ONE TABLET BY MOUTH DAILY Metoprolol Tartrate [facility] [address]-67 50 MG Orally Twice a day 1 tablet Effexor XR [facility] [address]-69 75 MG Orally Once a day 1 capsule with food Blood Glucose Monitor [facility] 0 March 04, 2015 not defined Metronidazole [facility] [address]-69 500 MG Orally every 8 hrs Jun 26, 2015 Jul 01, 2015 1 tablet Procedures Procedure Coding System Code Date Office Visit, Est Pt., Level 3 CPT-4 56999 Jun 26, 2015 STREP A ASSAY W/OPTIC CPT-4 13490 Jun 26, 2015 Vital Signs Date/Time: Jun 26, 2015 Temperature 98.6 F Weight 221 lbs Height 63 in BMI 39.14 Index Blood Pressure Diastolic 98 mmHg Blood Pressure Systolic 132 mmHg Cardiac Monitoring Heart Rate 70 bpm Results Name Result Date Reference Range Unit Abnormality Flag STREP A (IN HOUSE) Summary Purpose eClinicalWorks Submission
--- OUTSIDE RECORDS SUMMARY | 2017-10-09 18:33 | XMS REPORT ---
Author Author LEEANNA NUÑEZ [facility] eClinicalWorks Address Unknown Phone Unavailable Care Team Providers Care Casing Splitter Name Role Phone LEEANNA NUÑEZ Unavailable Allergies, Adverse Reactions, Alerts Substance Reaction Event Type N.K.D.A. Info Not Available Non Drug Allergy Problems Problem Type Condition Code Onset Dates Condition Status Problem Pain in soft tissues of limb 729.5 Active Assessment Dental examination Z01.20 Active Problem Edema 782.3 Active Problem Depressive [...] Date End Date Status Dosage Metoprolol Tartrate [facility] [address]-06 100 MG Orally Twice a day Jul 03, 2015 1 tablet Lopid [facility] [address]-58 600 MG Orally Twice a day Jul 27, 2015 1 tablet Gemfibrozil [facility] [address]-26 600 MG Orally once a day 1 tablet MetFORMIN HCl ER [facility] [address]-84 500 MG Orally 2 times a day TAKE ONE TABLET BY MOUTH DAILY Baclofen [facility] [address]-67 10 MG Orally Three times a day 1 tablet with food or milk Effexor XR [facility] [address]-49 75 MG Orally Once a day 1 capsule with food Hydrocodone-Acetaminophen [facility] [address]-15 10-325 MG Orally every 4-6 hrs Jun 25, 2015 1 tablet as needed for pain Atorvastatin Calcium [facility] [address]-14 10 MG Orally Once a day Jul 27, 2015 1 tablet BusPIRone HCl [facility] [address]-32 10 MG Orally Twice a day 1 tablet Procedures Procedure Coding System Code Date PANORAMIC FILM SEE ALSO CODE 83242 CPT-4 D0330 Aug 31, 2015 LTD ORAL EVALUATION - PROBLEM FOCUS CPT-4 D0140 Aug 31, 2015 Vital Signs Date/Time: Aug 31, 2015 Blood Pressure Diastolic 81 mmHg Blood Pressure Systolic 118 mmHg Results No Known Results Summary Purpose eClinicalWorks Submission
--- OUTSIDE RECORDS SUMMARY | 2017-10-09 18:34 | XMS REPORT ---
Author Author MADHU DASILVA [facility] [place] eClinicalWorks Address Unknown Phone Unavailable Care Team Providers Care Surgical Instrument Repair Specialist Name Role Phone MADHU DASILVA CP Unavailable Allergies, Adverse Reactions, Alerts Substance Reaction Event Type N.K.D.A. Info Not Available Non Drug Allergy Problems Problem Type Condition Code Onset Dates Condition Status Problem Pain in soft tissues of limb 729.5 Active Assessment Sore throat, chronic J31.2 Active Problem Edema 782.3 Active Problem Depressive [...] Instructions Start Date End Date Status Dosage Lopid [facility] [address]-06 600 MG Orally Twice a day Jul 27, 2015 1 tablet Atorvastatin Calcium [facility] [address]-57 10 MG Orally Once a day Jul 27, 2015 1 tablet MetFORMIN HCl ER [facility] [address]-54 500 MG Orally 2 times a day TAKE ONE TABLET BY MOUTH DAILY Effexor XR [facility] [address]-09 75 MG Orally Once a day 1 capsule with food Baclofen [facility] [address]-34 10 MG Orally Three times a day 1 tablet with food or milk Gemfibrozil [facility] [address]-39 600 MG Orally once a day 1 tablet BusPIRone HCl [facility] [address]-00 10 MG Orally Twice a day 1 tablet Metoprolol Tartrate [facility] [address]-28 100 MG Orally Twice a day Jul 03, 2015 1 tablet Hydrocodone-Acetaminophen [facility] [address]-21 10-325 MG Orally every 4-6 hrs Jun 25, 2015 1 tablet as needed for pain Procedures Procedure Coding System Code Date CULTURE, BACTERIA, OTHER CPT-4 24169 Aug 31, 2015 STREP A ASSAY W/OPTIC CPT-4 62865 Aug 31, 2015 Office Visit, Est Pt., Level 3 CPT-4 58559 Aug 31, 2015 Vital Signs Date/Time: Aug 31, 2015 Temperature 97.4 F Weight 224.2 lbs Height 63 in BMI 39.71 Index Blood Pressure Diastolic 80 mmHg Blood Pressure Systolic 118 mmHg Cardiac Monitoring Heart Rate 86 bpm Results Name Result Date Reference Range Unit Abnormality Flag STREP A (IN HOUSE) ----STREP A negative [id number] ----Control + [id number] ----Lot # [id number] ----Exp date [id number] Summary Purpose eClinicalWorks Submission
--- OUTSIDE RECORDS SUMMARY | 2017-10-09 18:34 | XMS REPORT ---
Author Author MICHELLE VANN [facility] eClinicalWorks Address Unknown Phone Unavailable Care Team Providers Care Trial Consultant Name Role Phone MICHELLE VANN Unavailable Allergies No Known Allergies Problems Problem Type Condition Code Onset Dates Condition Status Problem Low back pain M54.5 Active Problem HTN (hypertension) I10 Active Problem Diabetes mellitus E11.9 Active Assessment Low back pain M54.5 Active Problem Hypertension I10 Active Problem Hyperlipidemia E78.5 Active Problem Restless leg syndrome G25.81 Active Problem Anxiety F41.9 Active Problem Depression F32.9 Active Problem Tachycardia R00.0 Active Problem Degenerative disc disease at L5-S1 level M51.36 Active Medications Medication Code System Code Instructions Start Date End Date Status Dosage Hydrocodone-Acetaminophen [facility] [address]-75 10-325 MG Orally 4 times a day Jun 25, 2015 1 tablet as needed for pain Results No Known Results Summary Purpose eClinicalWorks Submission
--- OUTSIDE RECORDS SUMMARY | 2017-10-09 18:34 | XMS REPORT ---
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
--- OUTSIDE RECORDS SUMMARY | 2017-10-09 18:34 | XMS REPORT ---
Author Author CHIOMA TELLEZ [facility] Address [address] [place] [address] Care Team Providers Care Model And Mold Maker Name Role Phone CHIOMA TELLEZ Unavailable PROBLEMS Type Condition ICD9-CM Code [id number]-SR Code Onset Dates Condition Status SNOMED Code Problem Tachycardia R00.0 Active 8822314 Problem Hypertension I10 Active 85198163 Problem Hyperlipidemia E78.5 Active 33497156 Problem Hyperlipidemia, mixed E78.2 Active 048968708 Problem Hypertension, benign I10 Active 75250627 Problem Essential hypertension I10 Active 66164294 Problem Restless leg syndrome G25.81 Active 02851995 Problem Mixed hyperlipidemia E78.2 Active 028557590 Problem Controlled type 2 diabetes mellitus without complication, without long -term current use of insulin E11.9 Active 453999168 Problem HTN (hypertension) I10 Active 49990552 Problem Depression F32.9 Active 95191425 Problem Low back pain M54.5 Active 310463347 Problem Anxiety F41.9 Active 17568538 Problem Diabetes mellitus E11.9 Active 49999074 Problem Degenerative disc disease at L5-S1 level M51.36 Active 63143124 ALLERGIES Substance Reaction Event Type Date Status N.K.D.A. Unknown Non Drug Allergy Jul, Unknown SOCIAL HISTORY No smoking Hx information available PLAN OF CARE VITAL SIGNS Height 63 in 2016-07-22 Weight 218.3 lbs 2016-07-22 Temperature 98.0 degrees Fahrenheit 2016-07-22 Heart Rate 66 bpm 2016-07-22 Respiratory Rate 20 2016-07-22 BMI 38.67 kg/m2 2016-07-22 Blood pressure systolic 122 mmHg 2016-07-22 Blood pressure diastolic 84 mmHg 2016-07-22 MEDICATIONS Medication Instructions Dosage Frequency Start Date End Date Duration Status Ibuprofen 200 MG Orally every 6 hrs 2 tablets as needed 6h Active Amoxicillin 500 MG Orally 3 times a day 1 capsule 8h Jul, Jul, 10 day(s) Active Metoprolol Tartrate 100 MG Orally Twice a day 1 tablet 12h Active Diflucan 150 MG Orally one time 1 tablet Jul, 1 dose Active MetFORMIN HCl ER 500 MG TAKE ONE TABLET BY MOUTH TWICE DAILY 30 Active Baclofen 10 MG TAKE ONE TABLET BY MOUTH THREE TIMES DAILY WITH FOOD OR MILK 30 Active Effexor XR 75 MG Orally Once a day 1 capsule with food 24h 30 days Active Hydrocodone-Acetaminophen 10-325 MG Orally 4 times a day 1 tablet as needed for pain 6h Jun, 28 days Active Requip 3 MG TAKE ONE TABLET BY MOUTH ONCE DAILY 1 TO 3 HOURS BEFORE BEDTIME 30 Active RESULTS No Results PROCEDURES Procedure Date Ordered Related Diagnosis Body Site Office Visit, Est Pt., Level 3 Jul 22, 2016 IMMUNIZATIONS No Known Immunizations
--- OUTSIDE RECORDS SUMMARY | 2017-10-09 18:34 | XMS REPORT ---
Author Author MICHELLE VANN [facility] eClinicalWorks Address Unknown Phone Unavailable Care Team Providers Care Gel Coater Name Role Phone MICHELLE VANN Unavailable Allergies [...] disease at L5-S1 level M51.36 Active Medications No Known Medications Results No Known Results Summary Purpose eClinicalWorks Submission
--- OUTSIDE RECORDS SUMMARY | 2017-10-09 18:34 | XMS REPORT ---
Author Author MICHELLE VANN [facility] eClinicalWorks Address Unknown Phone Unavailable Care Team Providers Care Supervisor Malted Milk Name Role Phone MICHELLE VANN CP Unavailable Allergies, Adverse Reactions, Alerts Substance Reaction Event Type N.K.D.A. Info Not Available Non Drug Allergy Problems Problem Type Condition Code Onset Dates Condition Status Problem Unspecified otitis media 382.9 Active Problem Edema 782.3 Active Problem Pain in soft tissues of limb 729.5 Active Problem Diabetes mellitus E11.9 Active Problem Depressive disorder, not elsewhere classified 311 Active Problem Low back pain M54.5 Active Assessment Pharyngitis J02.9 Active Assessment Adenopathy R59.1 Active Problem HTN (hypertension) I10 Active Problem Hyperlipidemia 272.4 Active Problem Hypertension [...] Problem Benign intracranial hypertension 348.2 Active Problem Restless legs syndrome [RLS] 333.94 Active Assessment Swollen uvula R22.1 Active Problem Unspecified otalgia 388.70 Active Problem Influenza with other respiratory manifestations 487.1 Active Medications Medication Code System Code Instructions Start Date End Date Status Dosage Gemfibrozil [facility] [address]-67 600 MG Orally once a day 1 tablet Hydrocodone-Acetaminophen [facility] [address]-71 10-325 MG Orally every 4-6 hrs. MUST LAST 30 DAYS Jun 25, 2015 1 tablet as needed for pain Blood Glucose Monitor [facility] 0 March 04, 2015 not defined Metoprolol Tartrate [facility] [address]-44 100 MG Orally Twice a day Jul 03, 2015 1 tablet PredniSONE [facility] [address]-77 20 MG Orally tid x 3 days, bid x 3 days and daily 3 Jul 10, 2015 1 tablet MetFORMIN HCl ER [facility] [address]-98 500 MG Orally 2 times a day TAKE ONE TABLET BY MOUTH DAILY BusPIRone HCl [facility] [address]-58 10 MG Orally Twice a day 1 tablet Effexor XR [facility] [address]-36 75 MG Orally Once a day 1 capsule with food Clindamycin HCl [facility] [address]-01 300 MG Orally every 8 hrs Jul 10, 2015 Jul 20, 2015 1 capsule Augmentin [facility] [address]-56 875-125 MG Orally every 12 hrs Jul 03, 2015 Jul 13, 2015 1 tablet Diflucan [facility] [address]-65 100 MG Orally Jul 03, 2015 Jul 10, 2015 1 tablet Baclofen [facility] [address]-02 10 MG Orally Three times a day 1 tablet with food or milk Procedures Procedure Coding System Code Date CULTURE, BACTERIA, OTHER CPT-4 94571 Jul 10, 2015 ROCEPHIN 1 GM (IM) CPT-4 J0696 Jul 10, 2015 CULTURE BACTERIA ANAEROBIC CPT-4 13490 Jul 10, 2015 Office Visit, Est Pt., Level 3 CPT-4 10439 Jul 10, 2015 THER/PROPH/DIAG INJ, SC/IM CPT-4 29812 Jul 10, 2015 Vital Signs Date/Time: Jul 10, 2015 Temperature 98.1 F Weight 222.9 lbs Height 63 in BMI 39.48 Index Blood Pressure Diastolic 90 mmHg Blood Pressure Systolic 142 mmHg Cardiac Monitoring Heart Rate 80 bpm Results Name Result Date Reference Range Unit Abnormality Flag CULTURE, (EAR, NOSE, SINUS, THROAT)-SPECIFY SOURCE ----Upper Respiratory Culture Final report [id number] Summary Purpose eClinicalWorks Submission
--- OUTSIDE RECORDS SUMMARY | 2017-10-09 18:34 | XMS REPORT ---
Author Author CHIOMA TELLEZ [facility] Address [address] [place] [address] Care Team Providers Care Nuclear Plant Instrument Technician Name Role Phone ROSALINDA CHIOMA Unavailable PROBLEMS Type Condition ICD9-CM Code JLV95-HD Code Onset Dates Condition Status SNOMED Code Problem Tachycardia R00.0 Active 6960454 Problem Hyperlipidemia E78.5 Active 38917874 Problem Hypertension I10 Active 29300662 Problem Hyperlipidemia, mixed E78.2 Active 903456060 Problem Hypertension, benign I10 Active 05884885 Problem Essential hypertension I10 Active 75190238 Problem Restless leg syndrome G25.81 Active 08293560 Problem Controlled type 2 diabetes mellitus without complication, without long -term current use of insulin E11.9 Active 265895333 Problem Mixed hyperlipidemia E78.2 Active 549694945 Problem HTN (hypertension) I10 Active 37250296 Problem Depression F32.9 Active 44282736 Problem Low back pain M54.5 Active 150594801 Problem Anxiety F41.9 Active 25978162 Problem Diabetes mellitus E11.9 Active 06376677 Problem Degenerative disc disease at L5-S1 level M51.36 Active 06564382 ALLERGIES Substance Reaction Event Type Date Status N.K.D.A. Unknown Non Drug Allergy Aug, Unknown SOCIAL HISTORY No smoking Hx information available PLAN OF CARE Activity Details Follow Up 3 Months Reason:hyperlipidemia VITAL SIGNS Height 63 in 2016-08-22 Weight 216 lbs 2016-08-22 Temperature 98.4 degrees Fahrenheit 2016-08-22 Heart Rate 68 bpm 2016-08-22 Respiratory Rate 18 2016-08-22 BMI 38.26 kg/m2 2016-08-22 Blood pressure systolic 142 mmHg 2016-08-22 Blood pressure diastolic 82 mmHg 2016-08-22 MEDICATIONS Medication Instructions Dosage Frequency Start Date End Date Duration Status Metoprolol Tartrate 100 MG Orally Twice a day 1 tablet 12h Active Baclofen 10 mg 1 tablet 8h Active Effexor XR 75 MG Orally Once a day 1 capsule with food 24h 30 days Active Simvastatin 20 mg Orally Once a day 1 tablet in the evening 24h Aug, 30 day(s) Active MetFORMIN HCl ER 500 MG 1 tablet 12h Active Requip 3 MG 1 tablet 24h Active Ibuprofen 200 MG Orally every 6 hrs 2 tablets as needed 6h Active Hydrocodone-Acetaminophen 10-325 MG Orally 4 times a day 1 tablet as needed for pain 6h Aug, Active RESULTS No Results PROCEDURES Procedure Date Ordered Related Diagnosis Body Site Office Visit, Est Pt., Level 3 Aug 22, 2016 IMMUNIZATIONS No Known Immunizations
--- OUTSIDE RECORDS SUMMARY | 2017-10-09 18:34 | XMS REPORT ---
Author Author DONTE KRISHNAN [facility] eClinicalWorks Address Unknown Phone Unavailable Care Team Providers Care Overnight Associate Name Role Phone DONTE KRISHNAN Unavailable Allergies, Adverse Reactions, Alerts Substance Reaction [...] Problem Other general symptoms 780.99 Active Assessment Sore throat J02.9 Active Problem Routine general medical examination at health care facility V70.0 Active Problem Benign intracranial hypertension 348.2 Active Problem Acute pharyngitis 462 Active Problem Unspecified otalgia 388.70 Active Problem Lumbago 724.2 Active Problem Unspecified viral infection, in conditions classified elsewhere and of unspecified site 079.99 Active Medications Medication Code System Code Instructions Start Date End Date Status Dosage Gemfibrozil [facility] [address]-87 600 MG Orally once a day 1 tablet BusPIRone HCl [facility] [address]-30 10 MG Orally Twice a day 1 tablet Metoprolol Tartrate [facility] [address]-30 50 MG Orally Twice a day 1 tablet MetFORMIN HCl ER [facility] [address]-64 500 MG Orally 2 times a day TAKE ONE TABLET BY MOUTH DAILY Penicillin V Potassium [facility] [address]-31 500 MG Orally Four times a day Jun 03, 2015 Jun 13, 2015 1 tablet Blood Glucose Monitor [facility] 0 March 04, 2015 not defined Effexor XR [facility] [address]-72 75 MG Orally Once a day 1 capsule with food Baclofen [facility] [address]-63 10 MG Orally Three times a day 1 tablet with food or milk Procedures Procedure Coding System Code Date STREP A ASSAY W/OPTIC CPT-4 38392 Jun 03, 2015 Office Visit, Est Pt., Level 3 CPT-4 72490 Jun 03, 2015 Vital Signs Date/Time: Jun 03, 2015 Temperature 98.6 F Weight 223.4 lbs Height 63 in BMI 39.57 Index Blood Pressure Diastolic 80 mmHg Blood Pressure Systolic 122 mmHg Cardiac Monitoring Heart Rate 60 bpm Results Name Result Date Reference Range Unit Abnormality Flag STREP A (IN HOUSE) Summary Purpose eClinicalWorks Submission
--- OUTSIDE RECORDS SUMMARY | 2017-10-09 18:34 | XMS REPORT ---
Author Author CHIOMA TELLEZ [facility] Address [address] [place] [address] Care Team Providers Care Coal Chemist Name Role Phone CHIOMA TELLEZ Unavailable PROBLEMS Type Condition ICD9-CM Code MVE18-HE Code Onset Dates Condition Status SNOMED Code Problem Tachycardia R00.0 Active 1570784 Problem Hyperlipidemia E78.5 Active 07662540 Problem Hypertension I10 Active 35143293 Problem Hyperlipidemia, mixed E78.2 Active 412486458 Problem Hypertension, benign I10 Active 18726790 Problem Essential hypertension I10 Active 93110457 Problem Restless leg syndrome G25.81 Active 51185659 Problem Controlled type 2 diabetes mellitus without complication, without long -term current use of insulin E11.9 Active 748032107 Problem Mixed hyperlipidemia E78.2 Active 042589095 Problem HTN (hypertension) I10 Active 26100174 Problem Depression F32.9 Active 58618229 Problem Low back pain M54.5 Active 347984727 Problem Anxiety F41.9 Active 19383620 Problem Diabetes mellitus E11.9 Active 27967747 Problem Degenerative disc disease at L5-S1 level M51.36 Active 30641869 ALLERGIES No Known Allergies SOCIAL HISTORY Never Assessed PLAN OF CARE VITAL SIGNS Height 63 in 2016-12-12 Weight 219.6 lbs 2016-12-12 Temperature 98.1 degrees Fahrenheit 2016-12-12 Heart Rate 78 bpm 2016-12-12 Respiratory Rate 18 2016-12-12 BMI 38.90 kg/m2 2016-12-12 Blood pressure systolic 134 mmHg 2016-12-12 Blood pressure diastolic 82 mmHg 2016-12-12 MEDICATIONS Medication Instructions Dosage Frequency Start Date End Date Duration Status Requip 3 MG 1 tablet 24h Active Hydrocodone-Acetaminophen 10-325 MG Orally 4 times a day 1 tablet as needed for pain 6h Nov, 28 days Active Metoprolol Tartrate 100 mg Orally Twice a day 1 tablet 12h Active MetFORMIN HCl ER 500 MG 1 tablet 12h Active Chantix 1 MG Orally Twice a day 1 tablet 12h 08 Dec, 2016 Jun, 30 day(s) Active Ibuprofen 200 MG Orally every 6 hrs 2 tablets as needed 6h Active Effexor XR 75 MG Orally Once a day 1 capsule with food 24h 30 days Active Baclofen 10 mg 1 tablet 8h Active RESULTS Name Result Date Reference Range A1C (IN HOUSE) 2016-12-12 A1C IN HOUSE 6.0 4.3 - 5.6 % Previous A1c 6.0 Lot [id number] Exp date PROCEDURES Procedure Date Ordered Result Body Site GLYCATED HEMOGLOBIN TEST December 12, 2016 IMMUNIZATIONS No Known Immunizations MEDICAL (GENERAL) [...]
--- OUTSIDE RECORDS SUMMARY | 2017-10-09 18:34 | XMS REPORT ---
Author Author MICHELLE VANN [facility] eClinicalWorks Address Unknown Phone Unavailable Care Team Providers Care Mail Sorter And Delivery Name Role Phone MICHELLE VANN CP Unavailable [...] legs syndrome [RLS] 333.94 Active Problem Unspecified otalgia 388.70 Active Problem Influenza with other respiratory manifestations 487.1 Active Medications No Known Medications Results No Known Results Summary Purpose eClinicalWorks Submission
--- OUTSIDE RECORDS SUMMARY | 2017-10-09 18:35 | XMS REPORT ---
Author Author CHIOMA TELLEZ Organization [facility] Address [address] [place] [address] Care Team Providers Care Funnel Coater Name Role Phone CHIOMA TELLEZ Unavailable PROBLEMS Type Condition ICD9-CM Code TNY53-ZA Code Onset Dates Condition Status SNOMED Code Problem Tachycardia R00.0 Active 0622929 Problem Hyperlipidemia E78.5 Active 91763482 Problem Hypertension I10 Active 85789788 Problem Hyperlipidemia, mixed E78.2 Active 762442234 Problem Hypertension, benign I10 Active 14776216 Problem Essential hypertension I10 Active 97309650 Problem Restless leg syndrome G25.81 Active 10087636 Problem Controlled type 2 diabetes mellitus without complication, without long -term current use of insulin E11.9 Active 389916459 Problem Mixed hyperlipidemia E78.2 Active 105038615 Problem HTN (hypertension) I10 Active 19463318 Problem Depression F32.9 Active 81934351 Problem Low back pain M54.5 Active 800825948 Problem Anxiety F41.9 Active 43246847 Problem Diabetes mellitus E11.9 Active 87197743 Problem Degenerative disc disease at L5-S1 level M51.36 Active 58775503 ALLERGIES No Information SOCIAL HISTORY Never Assessed PLAN OF CARE VITAL SIGNS MEDICATIONS Medication Instructions Dosage Frequency Start Date End Date Duration Status Hydrocodone-Acetaminophen 10-325 MG Orally 4 times a day 1 tablet as needed for pain 6h December, 28 days Active RESULTS No Results PROCEDURES [...]
--- OUTSIDE RECORDS SUMMARY | 2017-10-09 18:35 | XMS REPORT ---
Author Author MICHELLE VANN [facility] eClinicalWorks Address Unknown Phone Unavailable Care Team Providers Care Sap Basis Administrator Name Role Phone MICHELLE VANN Unavailable Allergies No Known Allergies Problems Problem Type Condition Code Onset Dates Condition Status Problem Diabetes mellitus E11.9 Active Problem Depression F32.9 Active Problem HTN (hypertension) I10 Active Assessment Low back pain M54.5 Active Problem Low back pain M54.5 Active Problem Restless leg syndrome G25.81 Active Problem Hypertension I10 Active Problem Essential hypertension I10 Active Problem Degenerative disc disease at L5-S1 level M51.36 Active Problem Anxiety F41.9 Active Problem Hyperlipidemia E78.5 Active Problem Tachycardia R00.0 Active Medications Medication Code System Code Instructions Start Date End Date Status Dosage Hydrocodone-Acetaminophen [facility] [address]-91 10-325 MG Orally 4 times a day Jun 25, 2015 1 tablet as needed for pain Results No Known Results Summary Purpose eClinicalWorks Submission
--- OUTSIDE RECORDS SUMMARY | 2017-10-09 18:35 | XMS REPORT ---
Author Author PHYLLIS JAIMES eClinicalWorks Address Unknown Phone Unavailable Care Team Providers Care Guide Foreign Tour Name Role Phone PHYLLIS JAIMES CP Unavailable Allergies No Known Allergies Problems Problem Type Condition Code Onset Dates Condition Status Problem Low back pain M54.5 Active Problem HTN (hypertension) I10 Active Problem Diabetes mellitus E11.9 Active Assessment Depression F32.9 Active Assessment Anxiety F41.9 Active Problem Hypertension I10 Active Problem Hyperlipidemia E78.5 Active Problem Restless leg syndrome G25.81 Active Problem Anxiety F41.9 Active Problem Depression F32.9 Active Problem Tachycardia R00.0 Active Problem Degenerative disc disease at L5-S1 level M51.36 Active Medications No Known Medications Procedures Procedure Coding System Code Date Psychotherapy, patient &/family, 30 minutes, established patient CPT-4 88146 Mar 10, 2016 Results No Known Results Summary Purpose [employer] Submission
--- OUTSIDE RECORDS SUMMARY | 2017-10-09 18:35 | XMS REPORT ---
Author Author MICHELLE VANN [facility] eClinicalWorks Address Unknown Phone Unavailable Care Team Providers Care Sales Force Administrator Name Role Phone MICHELLE VANN CP Unavailable [...] disease at L5-S1 level M51.36 Active Assessment Restless leg syndrome G25.81 Active Assessment Tachycardia R00.0 Active Assessment Hyperlipidemia E78.5 Active Assessment Diabetes mellitus E11.9 Active Assessment HTN (hypertension) I10 Active Assessment Depression F32.9 Active Assessment Degenerative disc disease at L5-S1 level M51.36 Active Assessment Anxiety F41.9 Active Assessment Low back pain M54.5 Active Medications Medication Code System Code Instructions Start Date End Date Status Dosage Hydrocodone-Acetaminophen [facility] [address]-74 10-325 MG Orally 4 times a day Jun 25, 2015 1 tablet as needed for pain MetFORMIN HCl ER [facility] [address]-90 500 MG Orally 2 times a day TAKE ONE TABLET BY MOUTH DAILY Lopid [facility] [address]-57 600 MG Orally Twice a day Jul 27, 2015 1 tablet Metoprolol Tartrate [facility] [address]-43 100 MG Orally Twice a day Jul 03, 2015 1 tablet Requip [facility] [address]-69 3 MG Orally Once a day November 24, 2015 1 tablet 1 to 3 hours before bedtime Baclofen [facility] [address]-12 10 MG Orally Three times a day 1 tablet with food or milk Zocor [facility] [address]-34 10 MG Orally Once a day October 27, 2015 1 tablet in the evening Effexor XR [facility] [address]-32 75 MG Orally Once a day 1 capsule with food Blood Glucose Monitor [facility] 0 March 04, 2015 not defined Ibuprofen [facility] [address]-54 200 MG Orally every 6 hrs 2 tablets as needed Procedures Procedure Coding System Code Date Office Visit, Est Pt., Level 4 CPT-4 15071 November 24, 2015 Vital Signs Date/Time: November 24, 2015 Temperature 98.3 F Weight 218.8 lbs Height 63 in BMI 38.75 Index Blood Pressure Diastolic 88 mmHg Blood Pressure Systolic 128 mmHg Cardiac Monitoring Heart Rate 86 bpm Results No Known Results Summary Purpose eClinicalWorks Submission
--- OUTSIDE RECORDS SUMMARY | 2017-10-09 18:35 | XMS REPORT ---
Author Author MICHELLE VANN [facility] eClinicalWorks Address Unknown Phone Unavailable Care Team Providers Care Blueprint Engineer Name Role Phone MICHELLE VANN Unavailable Allergies [...] Date End Date Status Dosage Hydrocodone-Acetaminophen [facility] [address]-10 10-325 MG Orally 4 times a day Jun 25, 2015 1 tablet as needed for pain Results No Known Results Summary Purpose eClinicalWorks Submission
--- OUTSIDE RECORDS SUMMARY | 2017-10-09 18:35 | XMS REPORT ---
Author Author CHIOMA TELLEZ [facility] Address [address] [place] [address] Care Team Providers Care Sales And Marketing Manager Name Role Phone CHIOMA TELLEZ Unavailable PROBLEMS Type Condition ICD9-CM Code HGQ39-NI Code Onset Dates Condition Status SNOMED Code Problem Tachycardia R00.0 Active 5730094 Problem Hyperlipidemia E78.5 Active 69357667 Problem Hypertension I10 Active 94038695 Problem Hyperlipidemia, mixed E78.2 Active 269539610 Problem Hypertension, benign I10 Active 07056931 Problem Essential hypertension I10 Active 63773136 Problem Restless leg syndrome G25.81 Active 06308086 Problem Controlled type 2 diabetes mellitus without complication, without long -term current use of insulin E11.9 Active 726567561 Problem Mixed hyperlipidemia E78.2 Active 084732212 Problem HTN (hypertension) I10 Active 37168534 Problem Depression F32.9 Active 45964288 Problem Low back pain M54.5 Active 885791367 Problem Anxiety F41.9 Active 59289028 Problem Diabetes mellitus E11.9 Active 84718392 Problem Degenerative disc disease at L5-S1 level M51.36 Active 53638566 ALLERGIES No Information SOCIAL HISTORY Never Assessed [...]
--- OUTSIDE RECORDS SUMMARY | 2017-10-09 18:35 | XMS REPORT ---
Author Author TIA MO [facility] eClinicalWorks Address Unknown Phone Unavailable Care Team Providers Care Category Consultant Name Role Phone TIA MO CP Unavailable [...] Active Problem Acute pharyngitis 462 Active Assessment Low back pain M54.5 Active Problem Depressive [...] Start Date End Date Status Dosage Hydrocodone-Acetaminophen [facility] [address]-61 10-325 MG Orally every 4-6 hrs. MUST LAST 30 DAYS Jun 25, 2015 1 tablet as needed for pain Results No Known Results Summary Purpose eClinicalWorks Submission
--- OUTSIDE RECORDS SUMMARY | 2017-10-09 18:35 | XMS REPORT ---
Author Author MICHELLE VANN [facility] eClinicalWorks Address Unknown Phone Unavailable Care Team Providers Care Hunting Sales Associate Name Role Phone MICHELLE VANN CP Unavailable [...] 333.94 Active Problem Edema 782.3 Active Medications No Known Medications Results No Known Results Summary Purpose eClinicalWorks Submission
--- OUTSIDE RECORDS SUMMARY | 2017-10-09 18:35 | XMS REPORT ---
Author Author PHYLLIS JAIMES eClinicalWorks Address Unknown Phone Unavailable Care Team Providers Care Ladies Suit Operator Name Role Phone PHYLLIS JAIMES CP Unavailable [...] patient &/family, 30 minutes, established patient CPT-4 67579 Mar 24, 2016 Results No Known Results Summary Purpose [facility] Submission
--- OUTSIDE RECORDS SUMMARY | 2017-10-09 18:35 | XMS REPORT ---
Author Author PHYLLIS JAIMES eClinicalWorks Address Unknown Phone Unavailable Care Team Providers Care Assistant Track And Field Coach Name Role Phone PHYLLIS JAIMES CP Unavailable [...] Coding System Code Date Psychotherapy, patient &/family, 45 minutes, established patient CPT-4 81481 January 20, 2016 Results No Known Results Summary Purpose [facility] Submission
--- OUTSIDE RECORDS SUMMARY | 2017-10-09 18:36 | XMS REPORT ---
Author Author CHIOMA TELLEZ [facility] Address [address] [place] [address] Care Team Providers Care Engineering Administrator Name Role Phone CHIOMA TELLEZ Unavailable PROBLEMS Type Condition ICD9-CM Code CDE10-MM Code Onset Dates Condition Status SNOMED Code Problem Tachycardia R00.0 Active 7021637 Problem Hyperlipidemia E78.5 Active 87721940 Problem Hypertension I10 Active 05544450 Problem Hyperlipidemia, mixed E78.2 Active 219517640 Problem Hypertension, benign I10 Active 49962867 Problem Essential hypertension I10 Active 86496110 Problem Restless leg syndrome G25.81 Active 46561389 Problem Controlled type 2 diabetes mellitus without complication, without long -term current use of insulin E11.9 Active 843563499 Problem Mixed hyperlipidemia E78.2 Active 986898433 Problem HTN (hypertension) I10 Active 04023976 Problem Depression F32.9 Active 25098959 Problem Low back pain M54.5 Active 721758584 Problem Anxiety F41.9 Active 27960967 Problem Diabetes mellitus E11.9 Active 69173870 Problem Degenerative disc disease at L5-S1 level M51.36 Active 99571669 ALLERGIES No Known Allergies SOCIAL HISTORY Never Assessed PLAN OF CARE VITAL SIGNS Height 63 in 2016-09-30 Weight 223.2 lbs 2016-09-30 Temperature 98.2 degrees Fahrenheit 2016-09-30 Heart Rate 96 bpm 2016-09-30 Respiratory Rate 20 2016-09-30 BMI 39.53 kg/m2 2016-09-30 Blood pressure systolic 130 mmHg 2016-09-30 Blood pressure diastolic 93 mmHg 2016-09-30 MEDICATIONS Medication Instructions Dosage Frequency Start Date End Date Duration Status Baclofen 10 mg 1 tablet 8h Active Effexor XR 75 MG Orally Once a day 1 capsule with food 24h 30 days Active Metoprolol Tartrate 100 MG Orally Twice a day 1 tablet 12h Active Requip 3 MG 1 tablet 24h Active Ibuprofen 200 MG Orally every 6 hrs 2 tablets as needed 6h Active Simvastatin 20 mg Orally Once a day 1 tablet in the evening 24h 16 Aug, 2016 30 day(s) Active Hydrocodone-Acetaminophen 10-325 MG Orally 4 times a day 1 tablet as needed for pain 6h Aug, 28 days Active Bactrim DS 800-160 MG Orally Twice a day 1 tablet 12h 24 Sep, 2016 Oct, 10 day(s) Active MetFORMIN HCl ER 500 MG 1 tablet 12h Active RESULTS No Results PROCEDURES Procedure Date Ordered Result Body Site URINALYSIS, AUTO, W/O SCOPE Sep 30, 2016 IMMUNIZATIONS No Known Immunizations MEDICAL (GENERAL) [...]
--- OUTSIDE RECORDS SUMMARY | 2017-10-09 18:36 | XMS REPORT ---
Author Author CHIOMA TELLEZ Organization [facility] [place] Address [address] [place] [address] Care Team Providers Care Manager Customs Name Role Phone CHIOMA TELLEZ Unavailable PROBLEMS Type Condition ICD9-CM Code QLX09-BI Code Onset Dates Condition Status SNOMED Code Problem Tachycardia R00.0 Active 6759849 Problem Hyperlipidemia E78.5 Active 37206841 Problem Hypertension I10 Active 63552225 Problem Hyperlipidemia, mixed E78.2 Active 208908937 Problem Hypertension, benign I10 Active 55961847 Problem Essential hypertension I10 Active 20419730 Problem Restless leg syndrome G25.81 Active 93647686 Problem Controlled type 2 diabetes mellitus without complication, without long -term current use of insulin E11.9 Active 304972924 Problem Mixed hyperlipidemia E78.2 Active 427803663 Problem HTN (hypertension) I10 Active 77459610 Problem Depression F32.9 Active 92835213 Problem Low back pain M54.5 Active 458422597 Problem Anxiety F41.9 Active 72476656 Problem Diabetes mellitus E11.9 Active 84359764 Problem Degenerative disc disease at L5-S1 level M51.36 Active 88428362 ALLERGIES No Information SOCIAL HISTORY Never Assessed PLAN OF CARE VITAL SIGNS MEDICATIONS Medication Instructions Dosage Frequency Start Date End Date Duration Status Hydrocodone-Acetaminophen 10-325 MG Orally 4 times a day 1 tablet as needed for pain 6h Oct, 28 days Active RESULTS No Results PROCEDURES [...]
--- OUTSIDE RECORDS SUMMARY | 2017-10-09 18:36 | XMS REPORT ---
Author Author MICHELLE VANN [facility] eClinicalWorks Address Unknown Phone Unavailable Care Team Providers Care Automotive Machinist Apprentice Name Role Phone MICHELLE VANN Unavailable Allergies [...] End Date Status Dosage Hydrocodone-Acetaminophen [facility] [address]-26 10-325 MG Orally 4 times a day Jun 25, 2015 1 tablet as needed for pain Results No Known Results Summary Purpose eClinicalWorks Submission
--- OUTSIDE RECORDS SUMMARY | 2017-10-09 18:37 | XMS REPORT | Continuity of Care Document ---
Author Author [facility]ly [facility] Address Unknown Phone Unavailable Allergies Active Description Code Type Severity Reaction Onset Reported/Identified Relationship to Patient Clinical Status Yes No Known Drug Allergies [id number] Drug Allergy Unknown N/A 05/23/2008 Medications There is no data. Problems Date Dx Coded Attending Type Code Diagnosis Diagnosed By 05/26/2010 927.11 Crushing Injury Of Elbow 05/26/2010 927.11 Crushing Injury Of Elbow 05/26/2010 927.11 Crushing Injury Of Elbow 05/26/2010 MART FENG APRN 927.11 Crushing Injury Of Elbow 05/26/2010 DONTE KRISHNAN APRN 927.11 Crushing Injury Of Elbow 05/26/2010 SHAD FERNANDO APRN 927.11 Crushing Injury Of Elbow 05/26/2010 CARMEN DEWEY DO 927.11 Crushing Injury Of Elbow 05/26/2010 CARMEN DEWEY DO 927.11 Crushing Injury Of Elbow 05/26/2010 DONTE KRISHNAN APRN R 927.11 Crushing Injury Of Elbow 05/26/2010 DONTE KRISHNAN APRN R 927.11 Crushing Injury Of Elbow 05/26/2010 SOLA HERNÁNDEZ APRN R 927.11 Crushing Injury Of Elbow 05/26/2010 SOLA HERNÁNDEZ APRN R 927.11 Crushing Injury Of Elbow 05/26/2010 SOLA HERNÁNDEZ APRN R 927.11 Crushing Injury Of Elbow 05/26/2010 WILLIAN RODARTE APRN 927.11 Crushing Injury Of Elbow 06/11/2010 372.20 Blepharoconjunctivitis Unspecified 06/11/2010 372.20 Blepharoconjunctivitis Unspecified 06/11/2010 372.20 Blepharoconjunctivitis Unspecified 06/11/2010 MART FENG APRN 372.20 Blepharoconjunctivitis Unspecified 06/11/2010 DONTE KRISHNAN APRN R 372.20 Blepharoconjunctivitis Unspecified 06/11/2010 SHAD FERNANDO APRN 372.20 Blepharoconjunctivitis Unspecified 06/11/2010 DEWEY DO, CARMEN K 372.20 Blepharoconjunctivitis Unspecified 06/11/2010 DEWEY DO, CARMEN K 372.20 Blepharoconjunctivitis Unspecified 06/11/2010 CAROLINE KRISHNAN APRNRICIA R 372.20 Blepharoconjunctivitis Unspecified 06/11/2010 CAROLINE KRISHNAN APRNRICIA R 372.20 Blepharoconjunctivitis Unspecified 06/11/2010 BETTY MOSS SOLA R 372.20 Blepharoconjunctivitis Unspecified 06/11/2010 BETTY MOSS SOLA R 372.20 Blepharoconjunctivitis Unspecified 06/11/2010 BETTY MOSS, SOLA R 372.20 Blepharoconjunctivitis Unspecified 06/11/2010 WILLIAN RODARTE APRN 372.20 Blepharoconjunctivitis Unspecified 12/09/2010 278.01 MORBID OBESITY 12/09/2010 296.90 MOOD DISORDER 12/09/2010 V68.1 ISSUE OF REPEAT PRESCRIPTIONS 12/09/2010 V72.31 Sole Sewer Hand Exam, Routine 12/09/2010 278.01 MORBID OBESITY 12/09/2010 296.90 MOOD DISORDER 12/09/2010 V68.1 ISSUE OF REPEAT PRESCRIPTIONS 12/09/2010 V72.31 Sole Sewer Hand Exam, Routine 12/09/2010 278.01 MORBID OBESITY 12/09/2010 296.90 MOOD DISORDER 12/09/2010 V68.1 ISSUE OF REPEAT PRESCRIPTIONS 12/09/2010 V72.31 Sole Sewer Hand Exam, Routine 12/09/2010 MART FENG APRN 278.01 MORBID OBESITY 12/09/2010 MART FENG APRN 296.90 MOOD DISORDER 12/09/2010 MART FENG APRN V68.1 ISSUE OF REPEAT PRESCRIPTIONS 12/09/2010 MART FENG APRN V72.31 Sole Sewer Hand Exam, Routine 12/09/2010 DONTE KRISHNAN APRN R 278.01 MORBID OBESITY 12/09/2010 ARIELLA MOSS DONTE R 296.90 MOOD DISORDER 12/09/2010 CAROLINE KRISHNAN APRNRICIA R V68.1 ISSUE OF REPEAT PRESCRIPTIONS 12/09/2010 CAROLINE KRISHNAN APRNRICIA R V72.31 Sole Sewer Hand Exam, Routine 12/09/2010 KASSIE COSMETIC MANAGERCAROLEESHAD S 278.01 MORBID OBESITY 12/09/2010 KASSIE COSMETIC MANAGER, SHAD S 296.90 MOOD DISORDER 12/09/2010 KASSIE COSMETIC MANAGER, SHAD S V68.1 ISSUE OF REPEAT PRESCRIPTIONS 12/09/2010 KASSIE COSMETIC MANAGER SHAD S V72.31 Sole Sewer Hand Exam, Routine 12/09/2010 DEWEY DO, CARMEN K 278.01 MORBID OBESITY 12/09/2010 DEWEY DO, CARMEN K 296.90 MOOD DISORDER 12/09/2010 DEWEY DO, CARMEN K V68.1 ISSUE OF REPEAT PRESCRIPTIONS 12/09/2010 DEWEY DO, CARMEN K V72.31 Sole Sewer Hand Exam, Routine 12/09/2010 DEWEY DO, CARMEN K 278.01 MORBID OBESITY 12/09/2010 DEWEY DO, CARMEN K 296.90 MOOD DISORDER 12/09/2010 DEWEY DO, CARMEN K V68.1 ISSUE OF REPEAT PRESCRIPTIONS 12/09/2010 DEWEY DO, CARMEN K V72.31 Sole Sewer Hand Exam, Routine 12/09/2010 CAROLINE KRISHNAN APRNRICIA R 278.01 MORBID OBESITY 12/09/2010 ARIELLA MOSS DONTE R 296.90 MOOD DISORDER 12/09/2010 ARIELLA MOSS DONTE R V68.1 ISSUE OF REPEAT PRESCRIPTIONS 12/09/2010 CAROLINE KRISHNAN APRNRICIA R V72.31 Sole Sewer Hand Exam, Routine 12/09/2010 ARIELLA MOSS DONTE R 278.01 MORBID OBESITY 12/09/2010 ARIELLA MOSS DONTE R 296.90 MOOD DISORDER 12/09/2010 CAROLINE KRISHNAN APRNRICIA R V68.1 ISSUE OF REPEAT PRESCRIPTIONS 12/09/2010 CAROLINE KRISHNAN APRNRICIA R V72.31 Sole Sewer Hand Exam, Routine 12/09/2010 BETTY MOSS SOLA R 278.01 MORBID OBESITY 12/09/2010 BETTY MOSS SOLA R 296.90 MOOD DISORDER 12/09/2010 BETTY MOSS SOLA R V68.1 ISSUE OF REPEAT PRESCRIPTIONS 12/09/2010 BETTY COSMETIC MANAGER, SOLA R V72.31 Sole Sewer Hand Exam, Routine 12/09/2010 BETTY COSMETIC MANAGER, SOLA R 278.01 MORBID OBESITY 12/09/2010 BETTY COSMETIC MANAGER, SOLA R 296.90 MOOD DISORDER 12/09/2010 BETTY COSMETIC MANAGER, SOLA R V68.1 ISSUE OF REPEAT PRESCRIPTIONS 12/09/2010 BETTY COSMETIC MANAGER, SOLA R V72.31 Sole Sewer Hand Exam, Routine 12/09/2010 BETTY COSMETIC MANAGER, SOLA R 278.01 MORBID OBESITY 12/09/2010 BETTY COSMETIC MANAGER, SOLA R 296.90 MOOD DISORDER 12/09/2010 BETTY COSMETIC MANAGER, SOLA R V68.1 ISSUE OF REPEAT PRESCRIPTIONS 12/09/2010 BETTY COSMETIC MANAGER, SOLA R V72.31 Sole Sewer Hand Exam, Routine 12/09/2010 WILLIAN RODARTE APRN 278.01 MORBID OBESITY 12/09/2010 WILLIAN RODARTE APRN 296.90 MOOD DISORDER 12/09/2010 WILLIAN RODARTE APRN V68.1 ISSUE OF REPEAT PRESCRIPTIONS 12/09/2010 WILLIAN RODARTE APRN V72.31 Sole Sewer Hand Exam, Routine 01/18/2011 289.3 Lymphadenitis Unspecified Except Mesenteric 01/18/2011 289.3 Lymphadenitis Unspecified Except Mesenteric 01/18/2011 289.3 Lymphadenitis Unspecified Except Mesenteric 01/18/2011 MART FENG APRN 289.3 Lymphadenitis Unspecified Except Mesenteric 01/18/2011 CAROLINE KRISHNAN APRNRICIA R 289.3 Lymphadenitis Unspecified Except Mesenteric 01/18/2011 SHAD FERNANDO APRN 289.3 Lymphadenitis Unspecified Except Mesenteric 01/18/2011 DEWEY DO, CARMEN K 289.3 Lymphadenitis Unspecified Except Mesenteric 01/18/2011 DEWEY DO, CARMEN K 289.3 Lymphadenitis Unspecified Except Mesenteric 01/18/2011 ARIELLA MOSS DONTE R 289.3 Lymphadenitis Unspecified Except Mesenteric 01/18/2011 ARIELLA MOSS DONTE R 289.3 Lymphadenitis Unspecified Except Mesenteric 01/18/2011 BETTY MONTANON, SOLA R 289.3 Lymphadenitis Unspecified Except Mesenteric 01/18/2011 BETTY MONTANON, SOLA R 289.3 Lymphadenitis Unspecified Except Mesenteric 01/18/2011 BETTY MONTANON, SOLA R 289.3 Lymphadenitis Unspecified Except Mesenteric 01/18/2011 WILLIAN RODARTE APRN 289.3 Lymphadenitis Unspecified Except Mesenteric 03/02/2011 462 Pharyngitis Acute 03/02/2011 611.71 Mastodynia 03/02/2011 462 Pharyngitis Acute 03/02/2011 611.71 Mastodynia 03/02/2011 462 Pharyngitis Acute 03/02/2011 611.71 Mastodynia 03/02/2011 MART FENG APRN 462 Pharyngitis Acute 03/02/2011 MART FENG APRN 611.71 Mastodynia 03/02/2011 CAROLINE KRISHNAN APRNRICIA R 462 Pharyngitis Acute 03/02/2011 ARIELLA MOSS DONTE R 611.71 Mastodynia 03/02/2011 KASSIE MOSS SHAD S 462 Pharyngitis Acute 03/02/2011 KASSIE MOSS SHAD S 611.71 Mastodynia 03/02/2011 DEWEY DO, CARMEN K 462 Pharyngitis Acute 03/02/2011 DEWEY DO, CARMEN K 611.71 Mastodynia 03/02/2011 DEWEY DO, CARMEN K 462 Pharyngitis Acute 03/02/2011 DEWEY DO, CARMEN K 611.71 Mastodynia 03/02/2011 CAROLINE KRISHNAN APRNRICIA R 462 Pharyngitis Acute 03/02/2011 ARIELLA MOSS DONTE R 611.71 Mastodynia 03/02/2011 ARIELLA MOSS DONTE R 462 Pharyngitis Acute 03/02/2011 ARIELLA MOSS DONTE R 611.71 Mastodynia 03/02/2011 BETTY MOSS, SOLA R 462 Pharyngitis Acute 03/02/2011 BETTY MONTANON, SOLA R 611.71 Mastodynia 03/02/2011 BETTY COSMETIC MANAGER, SOLA R 462 Pharyngitis Acute 03/02/2011 BETTY MOSS, SOLA R 611.71 Mastodynia 03/02/2011 BETTY MONTANON, SOLA R 462 Pharyngitis Acute 03/02/2011 BETTY MOSS, SOLA R 611.71 Mastodynia 03/02/2011 WILLIAN RODARTE APRN 462 Pharyngitis Acute 03/02/2011 WILLIAN RODARTE APRN 611.71 Mastodynia 03/05/2011 380.4 Cerumen Impaction 03/05/2011 682.9 Cellulitis And Abscess Of Unspecified Sites 03/05/2011 V76.10 Breast Screening, Unspecified 03/05/2011 380.4 Cerumen Impaction 03/05/2011 682.9 Cellulitis And Abscess Of Unspecified Sites 03/05/2011 V76.10 Breast Screening, Unspecified 03/05/2011 380.4 Cerumen Impaction 03/05/2011 682.9 Cellulitis And Abscess Of Unspecified Sites 03/05/2011 V76.10 Breast Screening, Unspecified 03/05/2011 MART FENG APRN 380.4 Cerumen Impaction 03/05/2011 MART FENG APRN 682.9 Cellulitis And Abscess Of Unspecified Sites 03/05/2011 MART FENG APRN V76.10 Breast Screening, Unspecified 03/05/2011 TIMO KRISHNAN APRNIA R 380.4 Cerumen Impaction 03/05/2011 CAROLINE KRISHNAN APRNRICIA R 682.9 Cellulitis And Abscess Of Unspecified Sites 03/05/2011 CAROLINE KRISHNAN APRNRICIA R V76.10 Breast Screening, Unspecified 03/05/2011 LADI FERNANDO APRNA S 380.4 Cerumen Impaction 03/05/2011 LADI FERNANDO APRNA S 682.9 Cellulitis And Abscess Of Unspecified Sites 03/05/2011 KASSIE MOSS SHAD S V76.10 Breast Screening, Unspecified 03/05/2011 DEWEY DO, CARMEN K 380.4 Cerumen Impaction 03/05/2011 DEWEY DO, CARMEN K 682.9 Cellulitis And Abscess Of Unspecified Sites 03/05/2011 DEWEY DO, CARMEN K V76.10 Breast Screening, Unspecified 03/05/2011 DEWEY DO, CARMEN K 380.4 Cerumen Impaction 03/05/2011 DEWEY DO, CARMEN K 682.9 Cellulitis And Abscess Of Unspecified Sites 03/05/2011 DEWEY DO, CARMEN K V76.10 Breast Screening, Unspecified 03/05/2011 KRISHNAN AJAY DONTE R 380.4 Cerumen Impaction 03/05/2011 KRISHNAN COSMETIC MANAGER, DONTE R 682.9 Cellulitis And Abscess Of Unspecified Sites 03/05/2011 ARIELLA COSMETIC MANAGER, DONTE R V76.10 Breast Screening, Unspecified 03/05/2011 ARIELLA MONTANON, DONTE R 380.4 Cerumen Impaction 03/05/2011 ARIELLA COSMETIC MANAGER, DONTE R 682.9 Cellulitis And Abscess Of Unspecified Sites 03/05/2011 ARIELLA MOSS DONTE R V76.10 Breast Screening, Unspecified 03/05/2011 BETTY COSMETIC MANAGER, SOLA R 380.4 Cerumen Impaction 03/05/2011 BETTY COSMETIC MANAGER, SOLA R 682.9 Cellulitis And Abscess Of Unspecified Sites 03/05/2011 BETTY COSMETIC MANAGER, SOLA R V76.10 Breast Screening, Unspecified 03/05/2011 BETTY COSMETIC MANAGER, SOLA R 380.4 Cerumen Impaction 03/05/2011 BETTY COSMETIC MANAGER, SOLA R 682.9 Cellulitis And Abscess Of Unspecified Sites 03/05/2011 BETTY MONTANON, SOLA R V76.10 Breast Screening, Unspecified 03/05/2011 BETTY MONTANON, SOLA R 380.4 Cerumen Impaction 03/05/2011 BETTY COSMETIC MANAGER, SOLA R 682.9 Cellulitis And Abscess Of Unspecified Sites 03/05/2011 BETTY MONTANON, SOLA R V76.10 Breast Screening, Unspecified 03/05/2011 WILLIAN RODARTE APRN 380.4 Cerumen Impaction 03/05/2011 WILLIAN RODARTE APRN 682.9 Cellulitis And Abscess Of Unspecified Sites 03/05/2011 WILLIAN RODARTE APRN V76.10 Breast Screening, Unspecified 03/16/2011 610.0 Breast Cyst 03/16/2011 610.0 Breast Cyst 03/16/2011 610.0 Breast Cyst 03/16/2011 MART FENG APRN 610.0 Breast Cyst 03/16/2011 DONTE KRISHNAN APRN R 610.0 Breast Cyst 03/16/2011 SHAD FERNANDO APRN 610.0 Breast Cyst 03/16/2011 DEWEY DO, CARMEN K 610.0 Breast Cyst 03/16/2011 DEWEY DO, CARMEN K 610.0 Breast Cyst 03/16/2011 KRISHNAN COSMETIC MANAGER, DONTE R 610.0 Breast Cyst 03/16/2011 CAROLINE KRISHNAN APRNRICIA R 610.0 Breast Cyst 03/16/2011 BETTY MOSS, SOLA R 610.0 Breast Cyst 03/16/2011 BETTY MOSS, SOLA R 610.0 Breast Cyst 03/16/2011 BETTY MOSS, SOLA R 610.0 Breast Cyst 03/16/2011 WILLIAN RODARTE APRN 610.0 Breast Cyst 03/18/2011 Ot 305.1 03/18/2011 Ot 311 03/18/2011 Ot 401.9 03/18/2011 Ot 530.81 03/18/2011 Ot 611.0 04/04/2011 041.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, Methicillin Resistant 04/04/2011 041.12 Mrsa, Methicillin Resistant 04/04/2011 041.12 Mrsa, Methicillin Resistant 04/04/2011 MART FENG APRN 041.12 Mrsa, Methicillin Resistant 04/04/2011 TIMO KRISHNAN APRNIA R 041.12 Mrsa, Methicillin Resistant 04/04/2011 SHAD FERNANDO APRN 041.12 Mrsa, Methicillin Resistant 04/04/2011 MACO LOWE CARMEN K 041.12 Mrsa, Methicillin Resistant 04/04/2011 MACO LOWE CARMEN K 041.12 Mrsa, Methicillin Resistant 04/04/2011 TIMO KRISHNAN APRNIA R 041.12 Mrsa, Methicillin Resistant 04/04/2011 TIMO KRISHNAN APRNIA R 041.12 Mrsa, Methicillin Resistant 04/04/2011 BETTY MOSS SOLA R 041.12 Mrsa, Methicillin Resistant 04/04/2011 BETTY OMSS SOLA R 041.12 Mrsa, Methicillin Resistant 04/04/2011 BETTY MOSS SOLA R 041.12 Mrsa, Methicillin Resistant 04/04/2011 WILLIAN RODARTE APRN 041.12 Mrsa, Methicillin Resistant 04/08/2011 Ot 611.0 04/18/2011 V45.89 Other Postsurgical Status 04/18/2011 V45.89 Other Postsurgical Status 04/18/2011 V45.89 Other Postsurgical Status 04/18/2011 MART FENG APRN V45.89 Other Postsurgical Status 04/18/2011 DONTE KRISHNAN APRN R V45.89 Other Postsurgical Status 04/18/2011 SHAD FERNANDO APRN V45.89 Other Postsurgical Status 04/18/2011 MACO LOWE CARMEN K V45.89 Other Postsurgical Status 04/18/2011 DEWEY DO CARMEN K V45.89 Other Postsurgical Status 04/18/2011 TIMO KRISHNAN APRNIA R V45.89 Other Postsurgical Status 04/18/2011 TIMO KRISHNAN APRNIA R V45.89 Other Postsurgical Status 04/18/2011 SUZANNA HERNÁNDEZ APRNINA R V45.89 Other Postsurgical Status 04/18/2011 SUZANNA HERNÁNDEZ APRNINA R V45.89 Other Postsurgical Status 04/18/2011 BETTY MOSS SOLA R V45.89 Other Postsurgical Status 04/18/2011 WILLIAN RODARTE APRN V45.89 Other Postsurgical Status 07/21/2011 V65.42 Counseling - Smoking Cessation 07/21/2011 V65.42 Counseling - Smoking Cessation 07/21/2011 V65.42 Counseling - Smoking Cessation 07/21/2011 MART FENG APRN V65.42 Counseling - Smoking Cessation 07/21/2011 DONTE KRISHNAN APRN R V65.42 Counseling - Smoking Cessation 07/21/2011 SHAD FERNANDO APRN V65.42 Counseling - Smoking Cessation 07/21/2011 DEWEY DOPRINCEA K V65.42 Counseling - Smoking Cessation 07/21/2011 DEWEY DOPRINCEA K V65.42 Counseling - Smoking Cessation 07/21/2011 TIMO KRISHNAN APRNIA R V65.42 Counseling - Smoking Cessation 07/21/2011 TIMO KRISHNAN APRNIA R V65.42 Counseling - Smoking Cessation 07/21/2011 SUZANNA HERNÁNDEZ APRNINA R V65.42 Counseling - Smoking Cessation 07/21/2011 SUZANNA HERNÁNDEZ APRNINA R V65.42 Counseling - Smoking Cessation 07/21/2011 BETTY MOSS SOLA R V65.42 Counseling - Smoking Cessation 07/21/2011 WILLIAN RODARTE APRN V65.42 Counseling - Smoking Cessation 07/23/2011 461.9 Sinusitis Acute 07/23/2011 466.0 Bronchitis, Acute 07/23/2011 V65.42 Counseling - Smoking Cessation 07/23/2011 461.9 Sinusitis Acute 07/23/2011 466.0 Bronchitis, Acute 07/23/2011 V65.42 Counseling - Smoking Cessation 07/23/2011 461.9 Sinusitis Acute 07/23/2011 466.0 Bronchitis, Acute 07/23/2011 V65.42 Counseling - Smoking Cessation 07/23/2011 MART FENG APRN M 461.9 Sinusitis Acute 07/23/2011 PING MONTANONMART M 466.0 Bronchitis, Acute 07/23/2011 PING MONTANON MART M V65.42 Counseling - Smoking Cessation 07/23/2011 ARIELLA MOSS DONTE R 461.9 Sinusitis Acute 07/23/2011 ARIELLA MONTANON, DONTE R 466.0 Bronchitis, Acute 07/23/2011 ARIELLA MONTANON, DONTE R V65.42 Counseling - Smoking Cessation 07/23/2011 KASSIE MOSS, SHAD S 461.9 Sinusitis Acute 07/23/2011 KASSIE MONTANON, SHAD S 466.0 Bronchitis, Acute 07/23/2011 KASSIEASTER MONTANON, SHAD S V65.42 Counseling - Smoking Cessation 07/23/2011 DEWEY DO, CARMEN K 461.9 Sinusitis Acute 07/23/2011 DEWEY DO, CARMEN K 466.0 Bronchitis, Acute 07/23/2011 DEWEY DO, CARMEN K V65.42 Counseling - Smoking Cessation 07/23/2011 DEWEY DO, CARMEN K 461.9 Sinusitis Acute 07/23/2011 DEWEY DO, CARMEN K 466.0 Bronchitis, Acute 07/23/2011 DEWEY DO, CARMEN K V65.42 Counseling - Smoking Cessation 07/23/2011 ARIELLA MONTANON, DONTE R 461.9 Sinusitis Acute 07/23/2011 ARIELLA MONTANON, DONTE R 466.0 Bronchitis, Acute 07/23/2011 ARIELLA MONTANON, DONTE R V65.42 Counseling - Smoking Cessation 07/23/2011 ARIELLA MONTANON, DONTE R 461.9 Sinusitis Acute 07/23/2011 ARIELLA MONTANON, DONTE R 466.0 Bronchitis, Acute 07/23/2011 ARIELLA MONTANON, DONTE R V65.42 Counseling - Smoking Cessation 07/23/2011 BETTY MONTANON, SOLA R 461.9 Sinusitis Acute 07/23/2011 BETTY MONTANON, SOLA R 466.0 Bronchitis, Acute 07/23/2011 BETTY MONTANON, SOLA R V65.42 Counseling - Smoking Cessation 07/23/2011 BETTY MOSS, SOLA R 461.9 Sinusitis Acute 07/23/2011 BETTY MONTANON, SOLA R 466.0 Bronchitis, Acute 07/23/2011 BETTY COSMETIC MANAGER, SOLA R V65.42 Counseling - Smoking Cessation 07/23/2011 BETTY COSMETIC MANAGER, SOLA R 461.9 Sinusitis Acute 07/23/2011 BETTY MOSS, SOLA R 466.0 Bronchitis, Acute 07/23/2011 BETTY MOSS, SOLA R V65.42 Counseling - Smoking Cessation 07/23/2011 WILLIAN RODARTE APRN 461.9 Sinusitis Acute 07/23/2011 WILLIAN RODARTE APRN 466.0 Bronchitis, Acute 07/23/2011 WILLIAN RODARTE APRN V65.42 Counseling - Smoking Cessation 10/08/2011 Ot 305.1 10/08/2011 Ot 530.81 10/08/2011 Ot 786.50 10/19/2011 333.94 RESTLESS LEGS SYNDROME (RLS) 10/19/2011 333.94 RESTLESS LEGS SYNDROME (RLS) 10/19/2011 333.94 RESTLESS LEGS SYNDROME (RLS) 10/19/2011 MART FENG APRN 333.94 RESTLESS LEGS SYNDROME (RLS) 10/19/2011 DONTE KRISHNAN APRN R 333.94 RESTLESS LEGS SYNDROME (RLS) 10/19/2011 SHAD FERNANDO APRN 333.94 RESTLESS LEGS SYNDROME (RLS) 10/19/2011 DEWEY DOCARMEN K 333.94 RESTLESS LEGS SYNDROME (RLS) 10/19/2011 DEWEY DOPRINCEA K 333.94 RESTLESS LEGS SYNDROME (RLS) 10/19/2011 CAROLINE KRISHNAN APRNRICIA R 333.94 RESTLESS LEGS SYNDROME (RLS) 10/19/2011 CAROLINE KRISHNAN APRNRICIA R 333.94 RESTLESS LEGS SYNDROME (RLS) 10/19/2011 SUZANNA HERNÁNDEZ APRNINA R 333.94 RESTLESS LEGS SYNDROME (RLS) 10/19/2011 SUZANNA HERNÁNDEZ APRNINA R 333.94 RESTLESS LEGS SYNDROME (RLS) 10/19/2011 SUZANNA HERNÁNDEZ APRNINA R 333.94 RESTLESS LEGS SYNDROME (RLS) 10/19/2011 WILLIAN RODARTE APRN 333.94 RESTLESS LEGS SYNDROME (RLS) 02/27/2012 462 sore throat 02/27/2012 462 sore throat 02/27/2012 462 sore throat 02/27/2012 MART FENG APRN 462 sore throat 02/27/2012 CAROLINE KRISHNAN APRNRICIA R 462 sore throat 02/27/2012 KASSIE MOSS SHAD S 462 sore throat 02/27/2012 DEWEY DO, CARMEN K 462 sore throat 02/27/2012 DEWEY DO, CARMEN K 462 sore throat 02/27/2012 ARIELLA MOSS DONTE R 462 sore throat 02/27/2012 ARIELLA MOSS DONTE R 462 sore throat 02/27/2012 BETTY MOSS SOLA R 462 sore throat 02/27/2012 BETTY MONTANON, SOLA R 462 sore throat 02/27/2012 BETTY MONTANON, SOLA R 462 sore throat 02/27/2012 WILLIAN RODARTE APRN 462 sore throat 08/31/2012 780.99 ANHEDONIA 08/31/2012 780.99 ANHEDONIA 08/31/2012 MART FENG APRN 780.99 ANHEDONIA 08/31/2012 ARIELLA MOSS, DONTE R 780.99 ANHEDONIA 08/31/2012 LADI FERNANDO APRNA S 780.99 ANHEDONIA 08/31/2012 DEWEY DO CARMEN K 780.99 ANHEDONIA 08/31/2012 DEWEY DO, CARMEN K 780.99 ANHEDONIA 08/31/2012 ARIELLA MOSS DONTE R 780.99 ANHEDONIA 08/31/2012 ARIELLA MOSS DONTE R 780.99 ANHEDONIA 08/31/2012 BETTY MOSS, SOLA R 780.99 ANHEDONIA 08/31/2012 BETTY MOSS, SOLA R 780.99 ANHEDONIA 08/31/2012 BETTY MOSS, SOLA R 780.99 ANHEDONIA 08/31/2012 WILLIAN RODARTE APRN 780.99 ANHEDONIA 09/25/2012 388.70 earache 09/25/2012 MART FENG APRN 388.70 earache 09/25/2012 CAROLINE KRISHNAN APRNRICIA R 388.70 earache 09/25/2012 LADI FERNANDO APRNA S 388.70 earache 09/25/2012 MACO LOWE, CARMEN K 388.70 earache 09/25/2012 MACO LOWE CARMEN K 388.70 earache 09/25/2012 ARIELLA COSMETIC MANAGER, DONTE R 388.70 earache 09/25/2012 KRISHNAN COSMETIC MANAGER, DONTE R 388.70 earache 09/25/2012 BETTY COSMETIC MANAGER, SOLA R 388.70 earache 09/25/2012 BETTY COSMETIC MANAGER, SOLA R 388.70 earache 09/25/2012 BETTY COSMETIC MANAGER, SOLA R 388.70 earache 09/25/2012 WILLIAN RODARTE APRN 388.70 earache 10/30/2012 MART FENG APRN 311 DEPRESSIVE DISORDER NOS 10/30/2012 ARIELLA COSMETIC MANAGER, DONTE R 311 DEPRESSIVE DISORDER NOS 10/30/2012 LADI FERNANDO APRNA S 311 DEPRESSIVE DISORDER NOS 10/30/2012 MACO LOWE, CARMEN K 311 DEPRESSIVE DISORDER NOS 10/30/2012 MACO LOWE, CARMEN K 311 DEPRESSIVE DISORDER NOS 10/30/2012 ARIELLA MONTANON, DONTE R 311 DEPRESSIVE DISORDER NOS 10/30/2012 ARIELLA COSMETIC MANAGER, DONTE R 311 DEPRESSIVE DISORDER NOS 10/30/2012 BETTY COSMETIC MANAGER, SOLA R 311 DEPRESSIVE DISORDER NOS 10/30/2012 BETTY COSMETIC MANAGER, SOLA R 311 DEPRESSIVE DISORDER NOS 10/30/2012 BETTY COSMETIC MANAGER, SOLA R 311 DEPRESSIVE DISORDER NOS 10/30/2012 WILLIAN RODARTE APRN 311 DEPRESSIVE DISORDER NOS 08/16/2013 CAROLINE KRISHNAN APRNRICIA R 487.1 INFLUENZA 08/16/2013 SHAD FERNANDO APRN S 487.1 INFLUENZA 08/16/2013 MACO LOWE CARMEN K 487.1 INFLUENZA 08/16/2013 DEWEY , CARMEN K 487.1 INFLUENZA 08/16/2013 ARIELLA COSMETIC MANAGER, DONTE R 487.1 INFLUENZA 08/16/2013 ARIELLA MOSS DONTE R 487.1 INFLUENZA 08/16/2013 BETTY MONTANON, SOLA R 487.1 INFLUENZA 08/16/2013 BETTY COSMETIC MANAGER, SOLA R 487.1 INFLUENZA 08/16/2013 BETTY COSMETIC MANAGER, SOLA R 487.1 INFLUENZA 08/16/2013 WILLIAN RODARTE APRN 487.1 INFLUENZA 10/10/2013 KASSIE COSMETIC MANAGER, SHAD S 729.5 PAIN- ARM 10/10/2013 KASSIE MOSS, SHAD S 782.3 EDEMA 10/10/2013 DEWEY DO, CARMEN K 729.5 PAIN- ARM 10/10/2013 DEWEY DO, CARMEN K 782.3 EDEMA 10/10/2013 DEWEY DO, CARMEN K 729.5 PAIN- ARM 10/10/2013 DEWEY DO, CARMEN K 782.3 EDEMA 10/10/2013 ARIELLA COSMETIC MANAGER, DONTE R 729.5 PAIN- ARM 10/10/2013 KRISHNAN COSMETIC MANAGER, DONTE R 782.3 EDEMA 10/10/2013 KRISHNAN COSMETIC MANAGER, DONTE R 729.5 PAIN- ARM 10/10/2013 CAROLINE KRISHNAN APRNRICIA R 782.3 EDEMA 10/10/2013 BETTY COSMETIC MANAGER, SOLA R 729.5 PAIN- ARM 10/10/2013 BETTY COSMETIC MANAGER, SOLA R 782.3 EDEMA 10/10/2013 BETTY MOSS SOLA R 729.5 PAIN- ARM 10/10/2013 BETTY MOSS SOLA R 782.3 EDEMA 10/10/2013 BETTY MONTANON, SOLA R 729.5 PAIN- ARM 10/10/2013 BETTY MOSS, SOLA R 782.3 EDEMA 10/10/2013 WILLIAN RODARTE APRN 729.5 PAIN- ARM 10/10/2013 WILLIAN RODARTE APRN 782.3 EDEMA 10/18/2013 DEWEY DO, CARMEN K 719.42 PAIN IN JOINT INVOLVING UPPER ARM 10/18/2013 DEWEY DO CARMEN K 719.42 PAIN IN JOINT INVOLVING UPPER ARM 10/18/2013 TIMO KRISHNAN APRNIA R 719.42 PAIN IN JOINT INVOLVING UPPER ARM 10/18/2013 CAROLINE KRISHNAN APRNRICIA R 719.42 PAIN IN JOINT INVOLVING UPPER ARM 10/18/2013 SUZANNA HERNÁNDEZ APRNINA R 719.42 PAIN IN JOINT INVOLVING UPPER ARM 10/18/2013 SUZANNA HERNÁNDEZ APRNINA R 719.42 PAIN IN JOINT INVOLVING UPPER ARM 10/18/2013 SUZANNA HERNÁNDEZ APRNINA R 719.42 PAIN IN JOINT INVOLVING UPPER ARM 10/18/2013 WILLIAN RODARTE APRN 719.42 PAIN IN JOINT INVOLVING UPPER ARM 04/14/2014 KRISHNAN COSMETIC MANAGER, DONTE R 382.9 OTITIS MEDIA 04/14/2014 ARIELLA MOSS, DONTE R 382.9 OTITIS MEDIA 04/14/2014 BETTY MOSS, SOLA R 382.9 OTITIS MEDIA 04/14/2014 BETTY MONTANON, SOLA R 382.9 OTITIS MEDIA 04/14/2014 BETTY MONTANON, SOLA R 382.9 OTITIS MEDIA 04/14/2014 WILLIAN RODARTE APRN 382.9 OTITIS MEDIA 05/23/2014 ARIELLA MOSS DONTE R 079.99 UNSPECIFIED VIRAL INFECTION 05/23/2014 BETTY MONTANON, SOLA R 079.99 UNSPECIFIED VIRAL INFECTION 05/23/2014 BETTY MOSS, SOLA R 079.99 UNSPECIFIED VIRAL INFECTION 05/23/2014 BETTY MOSS, SOLA R 079.99 UNSPECIFIED VIRAL INFECTION 05/23/2014 WILLIAN RODARTE APRN 079.99 UNSPECIFIED VIRAL INFECTION 09/26/2014 SUZANNA HERNÁNDEZ APRNINA R 348.2 BENIGN INTRACRANIAL HYPERTENSION 09/26/2014 SUZANNA HERNÁNDEZ APRNINA R 724.2 LUMBAGO 09/26/2014 SUZANNA HERNÁNDEZ APRNINA R V70.0 ROUTINE GENERAL MEDICAL EXAMINATION AT A HEALTH CARE FACILITY 09/26/2014 SUZANNA HERNÁNDEZ APRNINA R 348.2 BENIGN INTRACRANIAL HYPERTENSION 09/26/2014 SUZANNA HERNÁNDEZ APRNINA R 724.2 LUMBAGO 09/26/2014 SUZANNA HERNÁNDEZ APRNINA R V70.0 ROUTINE GENERAL MEDICAL EXAMINATION AT A HEALTH CARE FACILITY 09/26/2014 WILLIAN RODARTE APRN 348.2 BENIGN INTRACRANIAL HYPERTENSION 09/26/2014 WILLIAN RODARTE APRN 724.2 LUMBAGO 09/26/2014 WILLIAN RODARTE APRN V70.0 ROUTINE GENERAL MEDICAL EXAMINATION AT A HEALTH CARE FACILITY 10/13/2014 SUZANNA HERNÁNDEZ APRNINA R 272.4 HYPERLIPIDEMIA 10/13/2014 SUZANNA HERNÁNDEZ APRNINA R 272.4 HYPERLIPIDEMIA 10/13/2014 WILLIAN RODARTE APRN 272.4 HYPERLIPIDEMIA 11/13/2014 SUZANNA HERNÁNDEZ APRNINA R 813.05 FRACTURE OF HEAD OF RADIUS CLOSED 11/13/2014 WILLIAN RODARTE APRN 813.05 FRACTURE OF HEAD OF RADIUS CLOSED 02/26/2015 Ot 722.52 02/26/2015 Ot 729.5 02/26/2015 Ot 729.81 02/26/2015 Ot 611.0 02/26/2015 Ot 611.0 02/26/2015 Ot V72.81 02/26/2015 Ot 272.4 02/26/2015 Ot 722.10 02/26/2015 Ot 780.79 02/26/2015 Ot 790.29 02/26/2015 SHAD FERNANDO Ot 729.5 02/26/2015 SHAD FERNANDO Ot 729.81 03/20/2015 NIVIA FRANCE MD Ot 595.9 03/20/2015 ROMÁN DUARTE, NIVIA Rodriguez Ot 599.72 03/20/2015 NIVIA FRANCE MD Ot 789.09 03/20/2015 NIVIA FRANCE MD Ot V13.01 03/20/2015 Ot 729.5 03/20/2015 Ot 729.81 03/20/2015 Ot 611.0 03/20/2015 Ot 611.0 03/20/2015 Ot V72.81 03/20/2015 Ot 272.4 03/20/2015 Ot 722.10 03/20/2015 Ot 780.79 03/20/2015 Ot 790.29 03/20/2015 SHAD FERNANDO Ot 729.5 03/20/2015 SHAD FERNANDO Ot 729.81 03/20/2015 LEEANNA SEXTON MD Ot 724.2 03/20/2015 LEEANNA SEXTON MD Ot V57.1 03/20/2015 LEEANNA SEXTON MD Ot 724.2 03/23/2015 LEEANNA SEXTON MD Ot 278.01 03/23/2015 LEEANNA SEXTON MD Ot 722.52 03/23/2015 LEEANNA SEXTON MD Ot V58.69 03/23/2015 LEEANNA SEXTON MD Ot V85.41 04/09/2015 LEEANNA SEXTON MD Ot 724.2 04/09/2015 LEEANNA SEXTON MD Ot V57.1 04/09/2015 LEEANNA SEXTON MD Ot 724.2 04/09/2015 LEEANNA SEXTON MD Ot V57.1 04/28/2015 LEEANNA SEXTON MD Ot 724.2 04/28/2015 LEEANNA SEXTON MD Ot M54.5 04/28/2015 LEEANNA SEXTON MD Ot V57.1 04/28/2015 LEEANNA SEXTON MD Ot Z51.89 05/18/2015 LEEANNA SEXTON MD Ot 722.52 05/18/2015 LEEANNA SEXTON MD Ot 724.2 06/03/2015 LEEANNA SEXTON MD Ot 722.52 06/03/2015 LEEANNA SEXTON MD Ot 724.2 10/06/2015 MIRELLA DUARTE, ONELIA P Ot R09.89 10/06/2015 MIRELLA DUARTE, ONELIA P Ot R13.10 10/06/2015 MIRELLA DUARTE, ONELIA P Ot R09.89 10/06/2015 MIRELLA DUARTE, ONELIA P Ot R13.10 10/20/2015 MIRELLA DUARTE, ONELIA P Ot R09.89 10/20/2015 MIRELLA DUARTE, ONELIA P Ot R13.10 10/20/2015 MIRELLA DUARTE, ONELIA P Ot R09.89 10/20/2015 MIRELLA DUARTE, ONELIA P Ot R13.10 11/27/2015 JENNIE DUARTE FACC, ALI FACP CCDS Ot R07.89 OTHER CHEST PAIN 11/30/2015 JENNIE DUARTE FACC, ALI FACP CCDS Ot R07.89 OTHER CHEST PAIN 11/30/2015 JENNIE DUARTE FACC, ALI FACP CCDS Ot R07.89 OTHER CHEST PAIN 12/01/2015 JENNIE DUARTE FACC, ALI FACP CCDS Ot R07.89 OTHER CHEST PAIN 12/02/2015 JENNIE DUARTE FACC, ALI FACP CCDS Ot R07.89 OTHER CHEST PAIN 12/02/2015 JENNIE DUARTE FACC, ALI FACP CCDS Ot R07.89 OTHER CHEST PAIN 01/11/2016 JENNIE DUARTE FACC, ALI FACP CCDS Ot R07.89 OTHER CHEST PAIN 01/11/2016 JENNIE DUARTE FACC, ALI FACP CCDS Ot R07.89 OTHER CHEST PAIN 01/11/2016 JENNIE DUARTE FACC, ALI FACP CCDS Ot R07.89 OTHER CHEST PAIN 02/04/2016 JENNIE DUARTE FACC, ALI FACP CCDS Ot R07.89 OTHER CHEST PAIN 02/04/2016 JENNIE DUARTE FACC, ALI FACP CCDS Ot R07.89 OTHER CHEST PAIN 02/04/2016 JENNIE DUARTE FAC, SHELLIE PRADOP CCDS Ot R07.89 OTHER CHEST PAIN 03/12/2016 JENNIE DUARTE FACPavan, SHELLIE PRADOP CCDS Ot R07.89 OTHER CHEST PAIN 03/25/2016 LEEANNA SEXTON MD, Ot M51.16 INTERVERTEBRAL DISC DISORDERS W RADICULO 03/25/2016 LEEANNA SEXTON MD, Ot Z79.899 OTHER BLADE BENDER FURNACE TENDER (CURRENT) DRUG THERAPY 04/02/2016 LEEANNA SEXTON MD, Ot M51.16 INTERVERTEBRAL DISC DISORDERS W RADICULO 04/02/2016 LEEANNA SEXTON MD, Ot Z79.899 OTHER SHELTER (CURRENT) DRUG THERAPY 08/24/2016 LEEANNA SEXTON MD, Ot M51.16 INTERVERTEBRAL DISC DISORDERS W RADICULO 08/24/2016 LEEANNA SEXTON MD, Ot Z79.899 OTHER BLADE BENDER FURNACE TENDER (CURRENT) DRUG THERAPY Procedures Code [place] [address] INFLUENZA A & B (IN-HOUSE) 08/16/2013 24750 US VENOUS DOPPLER (DVT EVAL ) 10/10/2013 57130 XRAY ELBOW R COMP MIN 3 VIEWS 10/21/2013 ORTHOPEDI WILLIAN RODARTE 10/21/2013 50879 JOINT INJECTION- INTERMEDIATE JOINT 12/12/2013 57783 STREP A (IN-HOUSE) 04/14/2014 67220 STREP A (IN-HOUSE) 05/23/2014 Results Test Result Range Capillary blood glucose measurement by glucometer (mass/volume) - 03/25/16 08: 15 Capillary blood glucose measurement by glucometer (mass/volume) 136 mg/dL 70-110 Encounters ACCT No. Visit Date/Time Discharge Status Pt. Type Provider Facility Loc./Unit Complaint [id number] 11/20/2014 12:06:00 11/20/2014 23:59:59 CLS Outpatient WILLIAN RODARTE APRN [id number] 11/13/2014 10:25:00 11/13/2014 23:59:59 CLS Outpatient SOLA HERNÁNDEZ APRN [id number] 10/09/2014 07:54:00 10/09/2014 23:59:59 CLS Outpatient SOLA HERNÁNDEZ APRN [id number] 09/19/2014 15:02:00 09/19/2014 23:59:59 CLS Outpatient SOLA HERNÁNDEZ APRN [id number] 05/23/2014 13:15:00 05/23/2014 23:59:59 CLS Outpatient CAROLINE KRISHNAN APRNBRENDAN Hopson [id number] 04/14/2014 12:20:00 04/14/2014 23:59:59 CLS Outpatient DONTE KRISHNAN APRN Mark Anthony [id number] 12/12/2013 13:34:00 12/12/2013 23:59:59 CLS Outpatient CARMEN DEWEY DO [id number] 10/18/2013 14:43:00 10/18/2013 23:59:59 CLS Outpatient CARMEN DEWEY DO [id number] 10/10/2013 11:08:00 10/10/2013 23:59:59 CLS Outpatient SHAD FERNANDO APRN Babak [id number] 08/16/2013 14:48:00 08/16/2013 23:59:59 CLS Outpatient DONTE KRISHNAN APRN Mark Anthony [id number] 10/30/2012 10:12:00 10/30/2012 23:59:59 CLS Outpatient PING AJAY MART Gagnon [id number] 09/25/2012 16:15:00 09/25/2012 23:59:59 CLS Outpatient [id number] 08/31/2012 08:27:00 08/31/2012 23:59:59 CLS Outpatient 121 02/29/2012 15:23:00 02/29/2012 23:59:59 CLS Outpatient [id number] 03/25/2016 07:55:00 03/25/2016 08:51:00 DIS Outpatient LEEANNA SEXTON MD [facility] CARD DISC DISORDER [id number] 12/01/2015 07:39:00 12/01/2015 23:59:59 CLS Outpatient SHELLIE SCHNEIDER MD, FACC, FACP CCDS [facility] CARD [id number] 11/27/2015 10:29:00 11/27/2015 23:59:59 CLS Outpatient SHELLIE SCHNEIDER MD, FACC, FACP CCDS [facility] CARD [id number] 11/26/2015 08:33:00 11/26/2015 23:59:59 CLS Outpatient SHELLIE SCHNEIDER MD, FACC, FACP CCDS [facility] CARD [id number] 08/12/2015 08:22:00 08/12/2015 23:59:59 CLS Outpatient ONELIA VU MD [facility] RAD [id number] 08/10/2015 08:10:00 08/10/2015 23:59:59 CLS Outpatient ONELIA VU MD [facility] LAB [id number] 04/24/2015 08:00:00 04/28/2015 13:33:00 DIS Outpatient LEEANNA SEXTON MD [facility] REHAB [id number] 03/23/2015 13:03:00 03/23/2015 14:01:00 DIS Outpatient LEEANNA SEXTON MD [facility] CARD [id number] 03/20/2015 08:56:00 03/20/2015 11:04:00 DIS Emergency NIVIA FRANCE MD [facility] ER [id number] 03/02/2015 12:12:00 03/02/2015 23:59:59 CLS Outpatient LEEANNA SEXTON MD [facility] CARD [id number] 02/26/2015 08:03:00 02/26/2015 23:59:59 CLS Outpatient LEEANNA SEXTON MD [facility] RAD [id number] 11/10/2014 18:58:00 11/10/2014 23:59:59 CLS Outpatient MERCYJUSTINTIMOIA Pavan MOSS [facility] QUICK [id number] 10/10/2013 12:22:00 10/10/2013 23:59:59 CLS Outpatient SHAD FERNANDO [facility] RAD [id number] 06/25/2012 08:06:00 Document Registration [id number] 10/08/2011 19:30:00 Document Registration [id number] 04/08/2011 05:35:00 Document Registration [id number] 04/06/2011 09:30:00 Document Registration [id number] 03/16/2011 16:30:00 Document Registration [id number] 03/16/2011 10:18:00 Document Registration [id number] 03/23/2010 14:56:00 Document Registration [id number] 16:10:00 Document Registration
[2017-10-09] MEDS ORDERED: LACTATED RINGERS 1,000 ML IV ONE (19:12)
[2017-10-09] MEDS ORDERED: KETOROLAC 30 MG/ML VIAL IVP ONE (19:15)
[2017-10-09 19:18] LABS: BASOPHILS % (AUTO) 0 % (0-10); EOSINOPHILS # (AUTO) 0.1 10^3/uL (0.0-0.3); EOSINOPHILS % (AUTO) 1 % (0-10); HEMATOCRIT 42 % (35-52); HEMOGLOBIN 14.4 G/DL (11.5-16.0); LYMPHOCYTES # (AUTO) 3.2 X 10^3 (1.0-4.0); LYMPHOCYTES % (AUTO) 27 % (12-44); MEAN CORPUSCULAR HEMOGLOBIN 32 PG (25-34); MEAN CORPUSCULAR HGB CONC 34 G/DL (32-36); MEAN CORPUSCULAR VOLUME 94 FL (80-99); MEAN PLATELET VOLUME 9.3 FL (7.4-10.4); MONOCYTES # (AUTO) 0.7 X 10^3 (0.0-1.0); MONOCYTES % (AUTO) 6 % (0-12); NEUTROPHILS # (AUTO) 7.6 X 10^3 (1.8-7.8); NEUTROPHILS % (AUTO) 65 % (42-75); PLATELET COUNT 356 10^3/uL (130-400); RED BLOOD COUNT 4.49 10^6/uL (4.35-5.85); RED CELL DISTRIBUTION WIDTH 13.7 % (10.0-14.5); WHITE BLOOD COUNT 11.6 10^3/uL (4.3-11.0)
[2017-10-09 19:19] LABS: BILIRUBIN,URINE NEGATIVE (NEGATIVE); CLARITY,URINE SLIGHTLY CLOUDY; COLOR,URINE YELLOW; GLUCOSE, URINE (UA) NEGATIVE (NEGATIVE); KETONES,URINE NEGATIVE (NEGATIVE); LEUKOCYTE ESTERASE ,URINE 3+ (NEGATIVE); NITRITE,URINE NEGATIVE (NEGATIVE); PH,URINE 6 (5-9); PROTEIN,URINE 2+ (NEGATIVE); UROBILINOGEN,URINE 1 MG/DL (NORMAL)
[2017-10-09 19:29] LABS: BACTERIA,URINE FEW /HPF; RBC,URINE >100 /HPF
[2017-10-09] MEDS ORDERED: ONDANSETRON 4 MG/2 ML (SDV) Z0FRAN IVP ONE (19:30)
[2017-10-09 19:31] LABS: ALANINE AMINOTRANSFERASE 32 U/L (0-55); ALBUMIN 4.2 GM/DL (3.2-4.5); ALKALINE PHOSPHATASE 126 U/L (40-136); BILIRUBIN,TOTAL 0.3 MG/DL (0.1-1.0); BUN/CREATININE RATIO 19; CALCIUM 9.4 MG/DL (8.5-10.1); CARBON DIOXIDE 25 MMOL/L (21-32); CHLORIDE 101 MMOL/L (98-107); CREATININE SERUM 0.68 MG/DL (0.60-1.30); GFR ESTIMATED > 60; GLUCOSE 120 MG/DL (70-105); POTASSIUM 3.9 MMOL/L (3.6-5.0); SODIUM 135 MMOL/L (135-145); TOTAL PROTEIN 7.3 GM/DL (6.4-8.2)
--- NOTE | 2017-10-09 20:27 | Diagnostic Imaging Report ---
CLINICAL INDICATION: Patient with back pain and blood in urine. Patient has history of kidney stones. EXAM: CT exam of the abdomen and pelvis is performed without IV or oral contrast using stone protocol. COMPARISONS: CT scan of the abdomen and pelvis performed without contrast dated 03/20/2015. FINDINGS: Visualized lung bases: Unremarkable. Liver: Unremarkable as visualized. Gallbladder: Unremarkable. Pancreas: Unremarkable as visualized. Spleen: Unremarkable as visualized. Adrenal glands: Unremarkable. Kidneys/ ureters: There is interval development of nonobstructing mild bilateral renal stones. One in the mid right kidney measures 3 mm and the other one in the upper left kidney measures 2 mm. There also appears to be a subtle stone in the inferior pole left kidney best seen on coronal sequence. There is a 3 mm stone within the distal right ureter which is a few centimeters from the UVJ. There is minimal periureteral fat stranding seen near the distal right ureter. There is no hydronephrosis. There are no stones within the bladder. Aorta: Unremarkable as visualized. Intraabdominal/ retroperitoneal contents: Unremarkable. Intestines: Unremarkable as visualized. Appendix: Unremarkable. Bladder: Decompressed with no significant abnormality seen. Pelvic organs: Unremarkable as visualized. Extra abdominal/ pelvis regions: Unremarkable. Abdominal wall: Unremarkable. Bones: There are small degenerative spurs involving the visualized lower thoracic spine and lumbar spine. IMPRESSION: 1: Interval development of a 3 mm stone in the distal right ureter which is a few centimeters from the right UVJ. There is minimal distal periureteral fat stranding. 2: There is interval development of nonobstructive stones within both kidneys. Dictated by: Dictated on workstation # [id number]
--- NOTE | 2017-10-09 20:32 | Diagnostic Imaging Report ---
CLINICAL INDICATION: Patient reports back pain and blood in urine. Patient has history of kidney stones. EXAM: KUB x-ray. COMPARISON: CT scan of abdomen and pelvis performed without IV contrast dated 10/09/2017 at 1950 hrs. FINDINGS: Of note, there is a slightly oblong shaped calcification in the low right pelvis area which may correlate to the 3 mm wide stone seen on the comparison CT scan. Previously seen bilateral renal stones seen on the comparison CT scan are not visualized on this x-ray exam. There is a nonobstructed bowel gas pattern. There is no evidence of abdominal free air. There are degenerative spurs involving the spine. Surgical clips are seen overlying the right upper quadrant which could be related to cholecystectomy changes. IMPRESSION: 1: There is a new oblong-like calcification overlying the medial right pelvis suspected to represent the 3 mm wide stone seen in the distal right ureter on the comparison CT scan. 2: The previously seen small stones on the comparison CT scan within both kidneys are not visualized on this x-ray exam. Dictated by: Dictated on workstation # [id number]
[2017-10-09] MEDS ORDERED: RX-ONDANSETRON 4 MG ODT (ZOFRAN) PPK #4 PO STA (20:36)
[2017-10-09] MEDS ORDERED: RX-NAPROXEN (NAPROSYN) 250 MG TAB PPK#4 PO STA (20:36)
[2017-10-09] MEDS ORDERED: RX-NITROFURANTOIN 100 MG (MACROBID) CAP PPK#2 PO STA (20:36)
[2017-10-09] MEDS ORDERED: NITR-65 PO (20:39)
[2017-10-09] MEDS ORDERED: ONDA4TAB8 PO (20:39)
[2017-10-09] MEDS ORDERED: TAMS0.4C98 PO (20:39)
[2017-10-09] MEDS ORDERED: KETO10TA PO (20:39)
--- NOTE | 2017-10-09 20:39 | ED GU-Female ---
General Chief Complaint: Abdominal/GI Problems Stated Complaint: BACK PAIN/BLOOD IN URINE Nursing Triage Note: PT REPORTS BACK PAIN AND BLOOD IN URINE. PT HAS HX OF KIDNEY STONES. PT WAS SEEN AT [facility] TODAY AND HAD A UA PERFORMED. PT REPORTS THEY TOLD HER "IT WOULD BE A GOOD IDEA" TO COME TO ED FOR FURTHER EVALUATION. Nursing Sepsis Screen: No Definite Risk Source: patient History of Present Illness Date Seen by Provider: Oct 09, 2017 Time Seen by Provider: 19:10 Initial Comments PT ARRIVES VIA POV FROM HOME C/O BLOOD IN URINE X 4 DAYS, GOT BETTER, THEN INCREASED TODAY C/O MID LOWER BACK PAIN BEGAN TODAY C/O NAUSEA, NO VOMITING NO FEVER NO PROBLEMS URINATING, BUT HAS HAD BLADDER SPASMS TODAY HAS HISTORY OF KIDNEY STONES, AND HAS HAD LITHOTRIPSY X 7. THIS IS SIMILAR. STATES SHE MAKES URIC ACID STONES TOOK HYDROCODONE TODAY AT 1500 WITHOUT RELIEF. LMP 10 YEARS AGO. NO CONTROL. HAS PCOS SEEN AT [facility] TODAY AND TOLD TO COME HERE. NO CALL FROM THEM PCP: [facility]. [employer] SUPERVISOR ISELA TELLEZ UROLOGIST: DR. DIAZ Allergies and Home Medications Allergies Coded Allergies: No Known Drug Allergies (Verified , 05/23/08) Home Medications Buspirone HCl 10 Mg Tablet, 10 MG PO DAILY, (Reported) Ciprofloxacin HCl 500 Mg Tablet, 500 MG PO BID Prescribed by: NIVIA FRANCE on 03/20/15 1100 Diclofenac Sodium 75 Mg Tablet.dr, 75 MG PO BID, (Reported) Gemfibrozil 600 Mg Tablet, 600 MG PO DAILY, (Reported) Hydrocodone Bit/Acetaminophen 1 Ea Tab, 1 TAB PO PRN, (Reported) Ketorolac Tromethamine 10 Mg Tablet, 10 MG PO Q6H Prescribed by: SARMAD CORONADO on 10/09/172038 Metformin HCl 500 Mg Tablet, 500 MG PO DAILY, (Reported) Metoprolol Tartrate 50 Mg Tablet, 50 MG PO BID, (Reported) Nitrofurantoin Monohyd/M-Cryst 100 Mg Capsule, 100 MG PO BID Prescribed by: SARMAD CORONADO on 10/09/172038 Ondansetron 4 Mg Tab.rapdis, 4 MG PO Q4H Prescribed by: SARMAD CORONADO on 10/09/172038 Ondansetron HCl 4 Mg Tab, 4 MG PO BID, (Reported) Tamsulosin HCl 0.4 Mg Cap, 0.4 MG PO DAILY Prescribed by: SARMAD CORONADO on 10/09/172038 Venlafaxine HCl 75 Mg Cap.er.24h, 75 MG PO DAILY, (Reported) Patient Home Medication List Home Medication List Reviewed: Yes Constitutional: no symptoms reported Respiratory: no symptoms reported Cardiovascular: no symptoms reported Gastrointestinal: see HPI, abdominal pain Genitourinary: see HPI, flank pain, hematuria, pain : No Musculoskeletal: see HPI, back pain Skin: no symptoms reported Psychiatric/Neurological: No Symptoms Reported Endocrine: No Symptoms Reported Hematologic/Lymphatic: No Symptoms Reported Past Azgnmku-Hogmcp-Wctaog Hx Patient Social History Alcohol Use: Denies Use Recreational Drug Use: No Smoking Status: Current Everyday Smoker (1 PPD) Type Used: Cigarettes Recent Foreign Travel: No Contact w/Someone Who Travel: No Recent Infectious Disease Expo: No Physical Abuse: No Sexual Abuse: No Mistreated: No Surgeries History of Surgeries: Yes (LITHOTRIPSY X 7; , ) Surgeries: Section, Gallbladder, Renal, Tonsillectomy Respiratory History of Respiratory Disorde: No Cardiovascular History of Cardiac Disorders: Yes Cardiac Disorders: High Cholesterol, Hypertension, Palpitations Neurological History of Neurological Disord: No Reproductive System Hx Reproductive Disorders: Yes (NO PERIOD X 10 YEARS, PER PT ON 10/09/17) Sexually Transmitted Disease: Yes (18, chlamydia) Female Reproductive Disorders: Menstrual Problems, Polycystic Ovarian Dis Genitourinary History of Genitourinary Disor: Yes Genitourinary Disorders: Kidney Stones Gastrointestinal History of Gastrointestinal Di: No Musculoskeletal History of Musculoskeletal Dis: Yes Musculoskeletal Disorders: Chronic Back Pain Endocrine History of Endocrine Disorders: Yes Endocrine Disorders: Diabetes, Non-Insulin dep HEENT History of HEENT Disorders: No Cancer History of Cancer: No Psychosocial History of Psychiatric Problem: Yes Behavioral Health Disorders: Anxiety Suicide Risk Score: 0 Integumentary History of Skin or Integumenta: No Blood Transfusions History of Blood Disorders: No Family Medical History Significant Family History: No Pertinent Family Hx Physical Exam Vital Signs Vital Signs - First Documented 10/09/17 19:10 Temp 99.5 Pulse 86 Resp 20 B/P (MAP) 175/108 (130) Pulse Ox 95 Capillary Refill : Less Than 3 Seconds General Appearance: WD/WN, no apparent distress, obese Neck: normal inspection Cardiovascular: regular rate, rhythm, no murmur Respiratory: normal breath sounds, no respiratory distress, no accessory muscle use Gastrointestinal: normal bowel sounds, soft, no organomegaly, no pulsatile mass , tenderness (LOWER ABDOMEN) Back: no CVA tenderness, other (LOWER MID BACK TENDERNESS) Extremities: normal inspection, normal capillary refill Neurologic/Psychiatric: occupational therapist's assistant II-XII nml as tested, no motor/sensory deficits, alert, normal mood/affect, oriented x 3 Skin: normal color, warm/dry, No rash Progress/Results/Core Measures Suspected Sepsis Recent Fever Within 48 Hours: No Infection Criteria Present: None New/Unexplained Altered Menta: No Sepsis Screen: No Definite Risk Sepsis Diagnosis: SIRS Temperature:99.5 Pulse: 86 Respiratory Rate: 20 Laboratory Tests 10/09/17 19:05: White Blood Count 11.6H Blood Pressure 175 /108 Mean: 130 Laboratory Tests 10/09/17 19:05: Creatinine 0.68, Platelet Count 356, Total Bilirubin 0.3 Results/Orders Lab Results Laboratory Tests Test 10/09/17 19:05 Range/Units White Blood Count 11.6 H 4.3-11.0 10^3/uL Red Blood Count 4.49 4.35-5.85 10^6/uL Hemoglobin 14.4 11.5-16.0 G/DL Hematocrit 42 35-52 % Mean Corpuscular Volume 94 80-99 FL Mean Corpuscular Hemoglobin 32 25-34 PG Mean Corpuscular Hemoglobin Concent 34 32-36 G/DL Red Cell Distribution Width 13.7 10.0-14.5 % Platelet Count 356 130-400 10^3/uL Mean Platelet Volume 9.3 7.4-10.4 FL Neutrophils (%) (Auto) 65 42-75 % Lymphocytes (%) (Auto) 27 12-44 % Monocytes (%) (Auto) 6 0-12 % Eosinophils (%) (Auto) 1 0-10 % Basophils (%) (Auto) 0 0-10 % Neutrophils # (Auto) 7.6 1.8-7.8 X 10^3 Lymphocytes # (Auto) 3.2 1.0-4.0 X 10^3 Monocytes # (Auto) 0.7 0.0-1.0 X 10^3 Eosinophils # (Auto) 0.1 0.0-0.3 10^3/uL Basophils # (Auto) 0.0 0.0-0.1 10^3/uL Urine Color YELLOW Urine Clarity SLIGHTLY CLOUDY Urine pH 6 5-9 Urine Specific [place] 1.020 1.016-1.022 Urine Protein 2+ H NEGATIVE Urine Glucose (UA) NEGATIVE NEGATIVE Urine Ketones NEGATIVE NEGATIVE Urine Nitrite NEGATIVE NEGATIVE Urine Bilirubin NEGATIVE NEGATIVE Urine Urobilinogen 1 NORMAL MG/DL Urine Leukocyte Esterase 3+ H NEGATIVE Urine RBC (Auto) 5+ H NEGATIVE Urine RBC >100 H /HPF Urine WBC 10-25 H /HPF Urine Squamous Epithelial Cells 10-25 H /HPF Urine Crystals NONE /LPF Urine Bacteria FEW H /HPF Urine Casts NONE /LPF Urine Mucus SMALL H /LPF Urine Culture Indicated YES Sodium Level 135 135-145 MMOL/L Potassium Level 3.9 3.6-5.0 MMOL/L Chloride Level 101 98-107 MMOL/L Carbon Dioxide Level 25 21-32 MMOL/L Anion Gap 9 5-14 MMOL/L Blood Urea Nitrogen 13 7-18 MG/DL Creatinine 0.68 0.60-1.30 MG/DL Estimat Glomerular Filtration Rate > 60 BUN/Creatinine Ratio 19 Glucose Level 120 H 70-105 MG/DL Calcium Level 9.4 8.5-10.1 MG/DL Total Bilirubin 0.3 0.1-1.0 MG/DL Aspartate Amino Transf (AST/SGOT) 17 5-34 U/L Alanine Aminotransferase (ALT/SGPT) 32 0-55 U/L Alkaline Phosphatase 126 40-136 U/L Total Protein 7.3 6.4-8.2 GM/DL Albumin 4.2 3.2-4.5 GM/DL My Orders Orders - SARMAD CORONADO DO Saline Lock/Iv-Start (10/09/17 19:12) Urine Bedside (10/09/17 19:12) Cbc With Automated Diff (10/09/17 19:12) Comprehensive Metabolic Panel (10/09/17 19:12) Ua Culture If Indicated (10/09/17 19:12) Abdomen/Kub 1view (10/09/17 19:12) Ct Abd/Pelvis Wo(Kidney Stone) (10/09/17 19:12) Saline Lock/Iv-Start (10/09/17 19:12) Saline Lock/Iv-Start (10/09/17 19:12) Lactated Ringers (Lr 1000 Ml Iv Solution (10/09/17 19:12) Ketorolac Injection (Toradol Injection) (10/09/17 19:15) Ondansetron Injection (Zofran Injectio (10/09/17 19:30) Urine Culture (10/09/17 19:05) Rx-Nitrofurantoin Angelina (Rx-Macrobid) (10/09/17 20:36) Rx-Naproxen (Rx-Naprosyn) (10/09/17 20:36) Rx-Ondansetron Po (Rx-Zofran Po) (10/09/17 20:36) Tamsulosin Capsule (Flomax Capsule) (10/10/17 18:00) Medications Given in ED Current Medications Medications Dose Ordered Sig/Wale Route Start Time Stop Time Status Last Admin Dose Admin Ketorolac Tromethamine 30 mg ONCE ONCE IVP 10/09/17 19:15 10/09/17 19:16 DC 10/09/17 19:44 30 MG Lactated Ringer's 1,000 ml @ 0 mls/hr Q0M ONCE IV 10/09/17 19:12 10/09/17 19:14 DC 10/09/17 19:44 0 MLS/HR Ondansetron HCl 4 mg ONCE ONCE IVP 10/09/17 19:30 10/09/17 19:31 DC 10/09/17 19:44 4 MG Vital Signs/I&O Vital Sign - Last 12Hours 10/09/17 19:10 Temp 99.5 Pulse 86 Resp 20 B/P (MAP) 175/108 (130) Pulse Ox 95 Capillary Refill : Less Than 3 Seconds Blood Pressure Mean: 130 Progress Note : Progress Note PAIN FREE WITH TORADOL UNEVENTFUL ER STAY Diagnostic Imaging Comments CT ABDOMEN/PELVIS--3.47 MM STONE RIGHT DISTAL URETER, WITH MILD SURROUNDING INFLAMMATORY CHANGES. NO HYDRONEPHROSIS. BILATERAL, SMALL INTRARENAL STONES-- PER [id number] REPORT AT 2034 KUB --3 MM CALCIFICATION IN RIGHT PELVIS--C/W URETERAL STONE ON CT--PER RADIOLOGIST REPORT @ 2043 Reviewed: Reviewed by Me Departure Impression Impression: Primary Impression: Right ureteral calculus Additional Impression: UTI (urinary tract infection) Disposition: HOME, SELF-CARE Condition: Improved Departure-Patient Inst. Referrals: CARMEN DEWEY DO (PCP) Primary Care Physician MICHELLE VANN (Family) Primary Care Physician ELPIDIO DIAZ MD Patient Instructions: Kidney Stones (DC), Urinary Tract Infection, Adult (DC) Add. Discharge Instructions: LOTS OF CLEAR LIQUIDS STRAIN ALL URINE TAKE YOUR HOME HYDROCODONE NEEDED FOR PAIN FOLLOW UP WITH DR. DIAZ THIS WEEK FOR FURTHER CARE RETURN TO ER IF WORSE All discharge instructions reviewed with patient and/or family. Voiced understanding. Scripts Ketorolac Tromethamine (Ketorolac Tromethamine) 10 Mg Tablet 10 MG PO Q6H for Pain, #15 TAB Prov: SARMAD CORONADO DO 10/09/17 Tamsulosin HCl (Flomax) 0.4 Mg Cap 0.4 MG PO DAILY, #10 CAP Prov: SARMAD CORONADO DO 10/09/17 Ondansetron (Zofran Odt) 4 Mg Tab.rapdis 4 MG PO Q4H for Nausea/Vomiting, #10 TAB Prov: SARMAD CORONADO DO 10/09/17 Nitrofurantoin Monohyd/M-Cryst (Macrobid 100 mg Capsule) 100 Mg Capsule 100 MG PO BID, #20 CAP Prov: SARMAD CORONADO DO 10/09/17 SARMAD CORONADO DO Oct 09, 2017 20:39
[2017-10-09] MEDS ORDERED: RX-NAPROXEN (NAPROSYN) 250 MG TAB PPK#4 PO ONE (20:45)
[2017-10-09] MEDS ORDERED: RX-ONDANSETRON 4 MG ODT (ZOFRAN) PPK #4 ONE (20:45)
[2017-10-09] MEDS ORDERED: RX-NITROFURANTOIN 100 MG (MACROBID) CAP PPK#2 PO ONE (20:45)
[2017-10-09] MEDS ORDERED: ALFUZOSIN HCL 10 MG TAB (UROXATRAL) PO ONE (20:52)
[2017-10-09] MEDS ORDERED: ALFUZOSIN HCL 10 MG TAB (UROXATRAL) PO SCH (21:00)
[2017-10-09 21:02] VITALS: BP 138/74
[2017-10-10] MEDS ORDERED: TAMSULOSIN 0.4 MG (FLOMAX) CAP PO SCH (18:00)
== END 2017-10-09 21:02 | disposition home or self-care (01) ==
LOC: EDUNIT# 18:26 → ER 18:27
DX: N20.1 Calculus of ureter (principal); N39.0 Urinary tract infection, site not specified; E11.9 Type 2 diabetes mellitus without complications; F41.9 Anxiety disorder, unspecified; E78.00 Pure hypercholesterolemia, unspecified; I10 Essential (primary) hypertension; F17.210 Nicotine dependence, cigarettes, uncomplicated; Z87.59 Personal history of other complications of pregnancy, childbirth and the puerperium; Z86.19 Personal history of other infectious and parasitic diseases; Z87.448 Personal history of other diseases of urinary system; Z90.89 Acquired absence of other organs; Z87.442 Personal history of urinary calculi; Z79.84 Long term (current) use of oral hypoglycemic drugs
CPT/HCPCS: 36415; 74018; 74176; 80053; 81000; 85025; 87077; 87088; 87186

== ENCOUNTER → 2017-10-11 | Outpatient (CLI) | payer SELFPAY ==
[~2017-10-11] MED LIST changes: +KETO10TA PO; +NITR-65 PO; +ONDA4TAB8 PO; +TAMS0.4C98 PO
--- NOTE | 2017-10-11 14:26 | Diagnostic Imaging Report ---
INDICATION: Right ureteral stone. Time of exam 2:30 PM Correlation is made with recent radiograph from 10/09/2017. Surgical clips are identified in the gallbladder fossa. No radiopaque renal calculi are identified. Tiny linear calcific density in the medial right hemipelvis is similar to prior radiograph and again may represent a tiny distal right ureteric calculus. No additional calculi are detected. Bowel gas pattern is unremarkable. IMPRESSION: Stable abdominal radiographs when compared with the examination from 2 days earlier. Dictated by: Dictated on workstation # [id number]
== END ==
LOC: RAD 13:25
PROVIDERS: ATTEND Urology
DX: N20.1 Calculus of ureter (principal)
CPT/HCPCS: 74018

== ENCOUNTER 2017-10-16 05:48 | Outpatient (CLI) | payer SELFPAY ==
[~2017-10-16] VITALS: Ht 160 cm; Wt 101.6 kg
[2017-10-16] MEDS ORDERED: ROPI3TAB2 PO (14:51)
[2017-10-16] MEDS ORDERED: ONDA4TAB8 PO (14:51)
[2017-10-16] MEDS ORDERED: TAMS0.4C2 PO (14:51)
[2017-10-16] MEDS ORDERED: HYDR-3820 PO (14:51)
[2017-10-16] MEDS ORDERED: NITR100C PO (14:51)
[2017-10-16] MEDS ORDERED: METO100T12 PO (14:51)
[2017-10-16] MEDS ORDERED: DULO60CA6 PO (14:51)
[2017-10-16] MEDS ORDERED: KETO10TA PO (14:51)
== END 2017-10-16 14:59 ==
LOC: PREOP 05:48
PROVIDERS: ATTEND Urology
DX: Z01.818 Encounter for other preprocedural examination (principal); N20.1 Calculus of ureter

== ENCOUNTER 2017-10-17 07:23 | Day surgery (SDC) | payer SELFPAY ==
[~2017-10-17] VITALS: Ht 160 cm; Wt 101.6 kg
[~2017-10-17 07:23] MED LIST changes: +HYDR-3820 PO; +METO100T12 PO; +NITR100C PO; +ROPI3TAB2 PO; +TAMS0.4C2 PO
[2017-10-17] MEDS ORDERED: cefTRIAXone INJECTION 1,000 MG in NS (IVPB) 100 ML IV ONE (07:30)
--- OUTSIDE RECORDS SUMMARY | 2017-10-17 07:31 | XMS REPORT | Continuity of Care Document ---
Author Author [facility] Address Unknown Phone Unavailable Allergies Active Description Code Type Severity Reaction Onset Reported/Identified Relationship to Patient Clinical Status Yes No Known Drug Allergies [id number] Drug Allergy Unknown N/A 05/23/2008 Medications There [...] V68.1 ISSUE OF REPEAT PRESCRIPTIONS 12/09/2010 V72.31 Marketing Performance Analyst Exam, Routine 12/09/2010 278.01 MORBID OBESITY 12/09/2010 296.90 MOOD DISORDER 12/09/2010 V68.1 ISSUE OF REPEAT PRESCRIPTIONS 12/09/2010 V72.31 Marketing Performance Analyst Exam, Routine 12/09/2010 278.01 MORBID OBESITY 12/09/2010 296.90 MOOD DISORDER 12/09/2010 V68.1 ISSUE OF REPEAT PRESCRIPTIONS 12/09/2010 V72.31 Marketing Performance Analyst Exam, Routine 12/09/2010 MART FENG APRN 278.01 MORBID OBESITY 12/09/2010 MART FENG APRN 296.90 MOOD DISORDER 12/09/2010 MART FENG APRN V68.1 ISSUE OF REPEAT PRESCRIPTIONS 12/09/2010 MART FENG APRN V72.31 Marketing Performance Analyst Exam, Routine 12/09/2010 DONTE KRISHNAN APRN R 278.01 MORBID OBESITY 12/09/2010 ARIELLA MOSS DONTE R 296.90 MOOD DISORDER 12/09/2010 CAROLINE KRISHNAN APRNRICIA R V68.1 ISSUE OF REPEAT PRESCRIPTIONS 12/09/2010 CAROLINE KRISHNAN APRNRICIA R V72.31 Marketing Performance Analyst Exam, Routine 12/09/2010 KASSIE WAFER MOUNTERCAROLEESHAD S 278.01 MORBID OBESITY 12/09/2010 KASSIE WAFER MOUNTER, SHAD S 296.90 MOOD DISORDER 12/09/2010 KASSIE WAFER MOUNTER, SHAD S V68.1 ISSUE OF REPEAT PRESCRIPTIONS 12/09/2010 KASSIE WAFER MOUNTER SHAD S V72.31 Marketing Performance Analyst Exam, Routine 12/09/2010 DEWEY DO, CARMEN K 278.01 MORBID OBESITY 12/09/2010 DEWEY DO, CARMEN K 296.90 MOOD DISORDER 12/09/2010 DEWEY DO, CARMEN K V68.1 ISSUE OF REPEAT PRESCRIPTIONS 12/09/2010 DEWEY DO, CARMEN K V72.31 Marketing Performance Analyst Exam, Routine 12/09/2010 DEWEY DO, CARMEN K 278.01 MORBID OBESITY 12/09/2010 DEWEY DO, CARMEN K 296.90 MOOD DISORDER 12/09/2010 DEWEY DO, CARMEN K V68.1 ISSUE OF REPEAT PRESCRIPTIONS 12/09/2010 DEWEY DO, CARMEN K V72.31 Marketing Performance Analyst Exam, Routine 12/09/2010 CAROLINE KRISHNAN APRNRICIA R 278.01 MORBID OBESITY 12/09/2010 ARIELLA MOSS DONTE R 296.90 MOOD DISORDER 12/09/2010 ARIELLA MOSS DONTE R V68.1 ISSUE OF REPEAT PRESCRIPTIONS 12/09/2010 CAROLINE KRISHNAN APRNRICIA R V72.31 Marketing Performance Analyst Exam, Routine 12/09/2010 ARIELLA MOSS DONTE R 278.01 MORBID OBESITY 12/09/2010 ARIELLA MOSS DONTE R 296.90 MOOD DISORDER 12/09/2010 CAROLINE KRISHNAN APRNRICIA R V68.1 ISSUE OF REPEAT PRESCRIPTIONS 12/09/2010 CAROLINE KRISHNAN APRNRICIA R V72.31 Marketing Performance Analyst Exam, Routine 12/09/2010 BETTY MOSS SOLA R 278.01 MORBID OBESITY 12/09/2010 BETTY MOSS SOLA R 296.90 MOOD DISORDER 12/09/2010 BETTY MOSS SOLA R V68.1 ISSUE OF REPEAT PRESCRIPTIONS 12/09/2010 BETTY WAFER MOUNTER, SOLA R V72.31 Marketing Performance Analyst Exam, Routine 12/09/2010 BETTY WAFER MOUNTER, SOLA R 278.01 MORBID OBESITY 12/09/2010 BETTY WAFER MOUNTER, SOLA R 296.90 MOOD DISORDER 12/09/2010 BETTY WAFER MOUNTER, SOLA R V68.1 ISSUE OF REPEAT PRESCRIPTIONS 12/09/2010 BETTY WAFER MOUNTER, SOLA R V72.31 Marketing Performance Analyst Exam, Routine 12/09/2010 BETTY WAFER MOUNTER, SOLA R 278.01 MORBID OBESITY 12/09/2010 BETTY WAFER MOUNTER, SOLA R 296.90 MOOD DISORDER 12/09/2010 BETTY WAFER MOUNTER, SOLA R V68.1 ISSUE OF REPEAT PRESCRIPTIONS 12/09/2010 BETTY WAFER MOUNTER, SOLA R V72.31 Marketing Performance Analyst Exam, Routine 12/09/2010 WILLIAN RODARTE APRN 278.01 MORBID OBESITY 12/09/2010 WILLIAN RODARTE APRN 296.90 MOOD DISORDER 12/09/2010 WILLIAN RODARTE APRN V68.1 ISSUE OF REPEAT PRESCRIPTIONS 12/09/2010 WILLIAN RODARTE APRN V72.31 Marketing Performance Analyst Exam, Routine 01/18/2011 289.3 Lymphadenitis Unspecified Except [...] MONTANON, SOLA R 611.71 Mastodynia 03/02/2011 BETTY WAFER MOUNTER, SOLA R 462 Pharyngitis Acute 03/02/2011 BETTY [...] APRNA S 380.4 Cerumen Impaction 03/05/2011 LADI FERNADNO APRNA S 682.9 Cellulitis And Abscess Of [...] DONTE R 380.4 Cerumen Impaction 03/05/2011 KRISHNAN WAFER MOUNTER, DONTE R 682.9 Cellulitis And Abscess Of Unspecified Sites 03/05/2011 ARIELLA WAFER MOUNTER, DONTE R V76.10 Breast Screening, Unspecified 03/05/2011 ARIELLA MONTANON, DONTE R 380.4 Cerumen Impaction 03/05/2011 ARIELLA WAFER MOUNTER, DONTE R 682.9 Cellulitis And Abscess Of Unspecified Sites 03/05/2011 ARIELLA MOSS DONTE R V76.10 Breast Screening, Unspecified 03/05/2011 BETTY WAFER MOUNTER, SOLA R 380.4 Cerumen Impaction 03/05/2011 BETTY WAFER MOUNTER, SOLA R 682.9 Cellulitis And Abscess Of Unspecified Sites 03/05/2011 BETTY WAFER MOUNTER, SOLA R V76.10 Breast Screening, Unspecified 03/05/2011 BETTY WAFER MOUNTER, SOLA R 380.4 Cerumen Impaction 03/05/2011 BETTY WAFER MOUNTER, SOLA R 682.9 Cellulitis And Abscess Of Unspecified Sites 03/05/2011 BETTY MONTANON, SOLA R V76.10 Breast Screening, Unspecified 03/05/2011 BETTY MONTANON, SOLA R 380.4 Cerumen Impaction 03/05/2011 BETTY WAFER MOUNTER, SOLA R 682.9 Cellulitis And Abscess Of [...] CARMEN K 610.0 Breast Cyst 03/16/2011 KRISHNAN WAFER MOUNTER, DONTE R 610.0 Breast Cyst 03/16/2011 CAROLINE [...] SOLA R 466.0 Bronchitis, Acute 07/23/2011 BETTY WAFER MOUNTER, SOLA R V65.42 Counseling - Smoking Cessation 07/23/2011 BETTY WAFER MOUNTER, SOLA R 461.9 Sinusitis Acute 07/23/2011 BETTY [...] LOWE CARMEN K 388.70 earache 09/25/2012 ARIELLA WAFER MOUNTER, DNOTE R 388.70 earache 09/25/2012 KRISHNAN WAFER MOUNTER, DONTE R 388.70 earache 09/25/2012 BETTY WAFER MOUNTER, SOLA R 388.70 earache 09/25/2012 BETTY WAFER MOUNTER, SOLA R 388.70 earache 09/25/2012 BETTY WAFER MOUNTER, SOLA R 388.70 earache 09/25/2012 WILLIAN RODARTE APRN 388.70 earache 10/30/2012 MART FENG APRN 311 DEPRESSIVE DISORDER NOS 10/30/2012 ARIELLA WAFER MOUNTER, DONTE R 311 DEPRESSIVE DISORDER NOS 10/30/2012 LADI FERNANDO APRNA S 311 DEPRESSIVE DISORDER NOS 10/30/2012 MACO LOWE, CARMEN K 311 DEPRESSIVE DISORDER NOS 10/30/2012 MACO LOWE, CARMEN K 311 DEPRESSIVE DISORDER NOS 10/30/2012 ARIELLA MONTANON, DONTE R 311 DEPRESSIVE DISORDER NOS 10/30/2012 ARIELLA WAFER MOUNTER, DONTE R 311 DEPRESSIVE DISORDER NOS 10/30/2012 BETTY WAFER MOUNTER, SOLA R 311 DEPRESSIVE DISORDER NOS 10/30/2012 BETTY WAFER MOUNTER, SOLA R 311 DEPRESSIVE DISORDER NOS 10/30/2012 BETTY WAFER MOUNTER, SOLA R 311 DEPRESSIVE DISORDER NOS 10/30/2012 WILLIAN RODARTE APRN 311 DEPRESSIVE DISORDER NOS 08/16/2013 CAROLINE KRISHNAN APRNRICIA R 487.1 INFLUENZA 08/16/2013 SHAD FERNANDO APRN S 487.1 INFLUENZA 08/16/2013 MACO LOWE CARMEN K 487.1 INFLUENZA 08/16/2013 DEWEY , CARMEN K 487.1 INFLUENZA 08/16/2013 ARIELLA WAFER MOUNTER, DONTE R 487.1 INFLUENZA 08/16/2013 ARIELLA MOSS DONTE R 487.1 INFLUENZA 08/16/2013 BETTY MONTANON, SOLA R 487.1 INFLUENZA 08/16/2013 BETTY WAFER MOUNTER, SOLA R 487.1 INFLUENZA 08/16/2013 BETTY WAFER MOUNTER, SOLA R 487.1 INFLUENZA 08/16/2013 WILLIAN RODARTE APRN 487.1 INFLUENZA 10/10/2013 KASSIE WAFER MOUNTER, SHAD S 729.5 PAIN- ARM 10/10/2013 KASSIE MOSS, SHAD S 782.3 EDEMA 10/10/2013 DEWEY DO, CARMEN K 729.5 PAIN- ARM 10/10/2013 DEWEY DO, CARMEN K 782.3 EDEMA 10/10/2013 DEWEY DO, CARMEN K 729.5 PAIN- ARM 10/10/2013 DEWEY DO, CARMEN K 782.3 EDEMA 10/10/2013 ARIELLA WAFER MOUNTER, DONTE R 729.5 PAIN- ARM 10/10/2013 KRISHNAN WAFER MOUNTER, DONTE R 782.3 EDEMA 10/10/2013 KRISHNAN WAFER MOUNTER, DONTE R 729.5 PAIN- ARM 10/10/2013 CAROLINE KRISHNAN APRNRICIA R 782.3 EDEMA 10/10/2013 BETTY WAFER MOUNTER, SOLA R 729.5 PAIN- ARM 10/10/2013 BETTY WAFER MOUNTER, SOLA R 782.3 EDEMA 10/10/2013 BETTY MOSS [...] IN JOINT INVOLVING UPPER ARM 04/14/2014 KRISHNAN WAFER MOUNTER, DONTE R 382.9 OTITIS MEDIA 04/14/2014 ARIELLA [...] 729.81 03/20/2015 NIVIA FRANCE MD Ot 595.9 CYSTITIS NOS 03/20/2015 NIVIA FRANCE MD Ot 599.72 MICROSCOPIC HEMATURIA 03/20/2015 NIVIA FRANCE MD Ot 789.09 ABDOMINAL PAIN, OTHER SPECIFIED SITE 03/20/2015 NIVIA FRANCE MD Ot V13.01 PERSONAL HISTORY OF URINARY CALCULI 03/20/2015 Ot 729.5 03/20/2015 Ot 729.81 03/20/2015 Ot 611.0 03/20/2015 Ot 611.0 03/20/2015 Ot V72.81 03/20/2015 Ot 272.4 03/20/2015 Ot 722.10 03/20/2015 Ot 780.79 03/20/2015 Ot 790.29 03/20/2015 SHAD FERNANDO Ot 729.5 03/20/2015 SHAD FERNANDO Ot 729.81 03/20/2015 LEEANNA SEXTON MD Ot 724.2 03/20/2015 LEEANNA SEXTON MD Ot V57.1 03/20/2015 LEEANNA SEXTON MD Ot 724.2 03/23/2015 LEEANNA SEXTON MD Ot 278.01 MORBID OBESITY 03/23/2015 LEEANNA SEXTON MD Ot 722.52 LUMB/LUMBOSAC DISC DEGEN 03/23/2015 LEEANNA SEXTON MD Ot V58.69 OTH MED,LT,CURRENT USE 03/23/2015 LEEANNA SEXTON MD Ot V85.41 BODY MASS INDEX 40.0-44.9, ADULT 04/09/2015 LEEANNA SEXTON MD Ot 724.2 04/09/2015 LEEANNA SEXTON MD Ot V57.1 04/09/2015 LEEANNA SEXTON MD Ot 724.2 04/09/2015 LEEANNA SEXTON MD Ot V57.1 04/28/2015 LEEANNA SEXTON MD Ot 724.2 LUMBAGO 04/28/2015 LEEANNA SEXTON MD Ot M54.5 LOW BACK PAIN 04/28/2015 LEEANNA SEXTON MD Ot V57.1 PHYSICAL THERAPY NEC 04/28/2015 LEEANNA SEXTON MD Ot Z51.89 ENCOUNTER FOR OTHER SPECIFIED AFTERCARE 05/18/2015 LEEANNA SEXTON MD Ot 722.52 05/18/2015 [...] P Ot R13.10 11/27/2015 JENNIE DUARTE FACC, SHELLIE FACP CCDS Ot R07.89 OTHER CHEST PAIN [...] OTHER CHEST PAIN 01/11/2016 JENNIE DUARTE FACC, SHELLIE FACP CCDS Ot R07.89 OTHER CHEST PAIN 01/11/2016 JENNIE DUARTE FACC, SHELLIE FACP CCDS Ot R07.89 OTHER CHEST PAIN 01/11/2016 JENNIE DUARTE FACC, ALI FACP CCDS Ot R07.89 OTHER CHEST PAIN 02/04/2016 JENNIE DUARTE [facility], ALI FACP CCDS Ot R07.89 OTHER CHEST PAIN 02/04/2016 JENNIE DUARTE [facility], ALI FACP CCDS Ot R07.89 OTHER CHEST PAIN 02/04/2016 JENNIE DUARTE [facility], ALI FACP CCDS Ot R07.89 OTHER CHEST PAIN 03/12/2016 JENNIE DUARTE [facility], ALI FACP CCDS Ot R07.89 OTHER CHEST PAIN 03/25/2016 LEEANNA SEXTON MD, Ot M51.16 INTERVERTEBRAL DISC DISORDERS W RADICULO 03/25/2016 LEEANNA SEXTON MD, Ot Z79.899 OTHER RESIDENTIAL (CURRENT) DRUG THERAPY 04/02/2016 LEEANNA SEXTON MD, Ot M51.16 INTERVERTEBRAL DISC DISORDERS W RADICULO 04/02/2016 LEEANNA SEXTON MD, Ot Z79.899 OTHER DOCUMENTATION WRITER (CURRENT) DRUG THERAPY 08/24/2016 LEEANNA SEXTON MD, Ot M51.16 INTERVERTEBRAL DISC DISORDERS W RADICULO 08/24/2016 LEEANNA SEXTON MD, Ot Z79.899 OTHER DOCUMENTATION WRITER (CURRENT) DRUG THERAPY 10/10/2017 Ot 272.4 HYPERLIPIDEMIA NEC/NOS 10/10/2017 Ot 722.10 LUMBAR DISC DISPLACEMENT 10/10/2017 Ot 780.79 OTH MALAISE FATIGUE 10/10/2017 Ot 790.29 OTHER ABNORMAL GLUCOSE 10/10/2017 SHAD FERNANDO Ot 729.5 PAIN IN LIMB 10/10/2017 SHAD FERNANDOP Ot 729.81 SWELLING OF LIMB 10/10/2017 LEEANNA SEXTON MD Ot 722.52 LUMB/LUMBOSAC DISC DEGEN 10/10/2017 LEEANNA SEXTON MD Ot 724.2 LUMBAGO 10/10/2017 ONELIA VU MD Ot R09.89 OTH SYMPTOMS AND SIGNS INVOLVING THE CIR 10/10/2017 ONELIA VU MD Ot R13.10 DYSPHAGIA, UNSPECIFIED 10/10/2017 ONELIA VU MD Ot R09.89 OTH SYMPTOMS AND SIGNS INVOLVING THE CIR 10/10/2017 ONELIA VU MD Ot R13.10 DYSPHAGIA, UNSPECIFIED 10/10/2017 JENNIE DUARTE [facility], ALI FACP CCDS Ot R07.89 OTHER CHEST PAIN 10/10/2017 JENNIE DUARTE FAC, ALI FACP CCDS Ot R07.89 OTHER CHEST PAIN 10/10/2017 JENNIE DUARTE FAC, ALI FACP CCDS Ot R07.89 OTHER CHEST PAIN 10/11/2017 IVONNE SARMAD Cari Ot E11.9 TYPE 2 DIABETES MELLITUS WITHOUT COMPLIC 10/11/2017 IVONNE SARMAD Cari Ot E78.00 PURE HYPERCHOLESTEROLEMIA, UNSPECIFIED 10/11/2017 IVONNE SARMAD Cari Ot F17.210 NICOTINE DEPENDENCE, CIGARETTES, UNCOMPL 10/11/2017 IVONNE SARMAD Cari Ot F41.9 ANXIETY DISORDER, UNSPECIFIED 10/11/2017 IVONNE SARMAD Cari Ot I10 ESSENTIAL (PRIMARY) HYPERTENSION 10/11/2017 IVONNE SARMAD K Ot N20.1 CALCULUS OF URETER 10/11/2017 IVONNE DO SARMAD K Ot N39.0 URINARY TRACT INFECTION, SITE NOT SPECIF 10/11/2017 IVONNE SARMAD Cari Ot R31.9 HEMATURIA, UNSPECIFIED 10/11/2017 IVONNE SARMAD Cari Ot Z79.84 RESIDENTIAL (CURRENT) USE OF ORAL HYPOGLYC 10/11/2017 IVONNE SARMAD Cari Ot Z86.19 PERSONAL HISTORY OF OTHER INFECTIOUS AND 10/11/2017 IVONNE SARMAD K Ot Z87.442 PERSONAL HISTORY OF URINARY CALCULI 10/11/2017 IVONNE SARMAD LOWE Ot Z87.448 PERSONAL HISTORY OF OTHER DISEASES OF UR 10/11/2017 IVONNE SARMAD LOWE Ot Z87.59 PERSONAL HISTORY OF COMP OF PREG, CHLDBR 10/11/2017 IVONNE ESTELITAA Cari Ot Z90.89 ACQUIRED ABSENCE OF OTHER ORGANS 10/11/2017 ELPIDIO DIAZ MD Ot N20.1 CALCULUS OF URETER 10/11/2017 ELPIDIO DIAZ MD, Ot N20.1 CALCULUS OF URETER Procedures Code Description [place] [address] INFLUENZA A & B (IN-HOUSE) 08/16/2013 28817 US VENOUS DOPPLER (DVT EVAL ) 10/10/2013 12282 XRAY ELBOW R COMP MIN 3 VIEWS 10/21/2013 ORTHOPEDWILLIAN WALKER 10/21/2013 02482 JOINT INJECTION- INTERMEDIATE JOINT 12/12/2013 34638 STREP A (IN-HOUSE) 04/14/2014 67344 STREP A (IN-HOUSE) 05/23/2014 Results Test Result Range Capillary blood glucose measurement by glucometer (mass/volume) - 03/25/16 08: 15 Capillary blood glucose measurement by glucometer (mass/volume) 136 mg/dL 70-110 Complete blood count (CBC) with automated white blood cell (WBC) differential - 10/09/17 19:05 Blood leukocytes automated count (number/volume) 11.6 10*3/uL 4.3-11.0 Blood erythrocytes automated count (number/volume) 4.49 10*6/uL 4.35-5.85 Venous blood hemoglobin measurement (mass/volume) 14.4 g/dL 11.5-16.0 Blood hematocrit (volume fraction) 42 % 35-52 Automated erythrocyte mean corpuscular volume 94 [foz_us] 80-99 Automated erythrocyte mean corpuscular hemoglobin (mass per erythrocyte) 32 pg 25-34 Automated erythrocyte mean corpuscular hemoglobin concentration measurement ( mass/volume) 34 g/dL 32-36 Automated erythrocyte distribution width ratio 13.7 % 10.0-14.5 Automated blood platelet count (count/volume) 356 10*3/uL 130-400 Automated blood platelet mean volume measurement 9.3 [foz_us] 7.4-10.4 Automated blood neutrophils/100 leukocytes 65 % 42-75 Automated blood lymphocytes/100 leukocytes 27 % 12-44 Blood monocytes/100 leukocytes 6 % 0-12 Automated blood eosinophils/100 leukocytes 1 % 0-10 Automated blood basophils/100 leukocytes 0 % 0-10 Blood neutrophils automated count (number/volume) 7.6 10*3 1.8-7.8 Blood lymphocytes automated count (number/volume) 3.2 10*3 1.0-4.0 Blood monocytes automated count (number/volume) 0.7 10*3 0.0-1.0 Automated eosinophil count 0.1 10*3/uL 0.0-0.3 Automated blood basophil count (count/volume) 0.0 10*3/uL 0.0-0.1 Complete urinalysis with reflex to culture - 10/09/17 19:05 Urine color determination YELLOW NRG Urine clarity determination SLIGHTLY CLOUDY NRG Urine pH measurement by test strip 6 5-9 Specific gravity of urine by test strip 1.020 1.016- 1.022 Urine protein assay by test strip, semi-quantitative 2+ NEGATIVE Urine glucose detection by automated test strip NEGATIVE NEGATIVE Erythrocytes detection in urine sediment by light microscopy 5+ NEGATIVE Urine ketones detection by automated test strip NEGATIVE NEGATIVE Urine nitrite detection by test strip NEGATIVE NEGATIVE Urine total bilirubin detection by test strip NEGATIVE NEGATIVE Urine urobilinogen measurement by automated test strip (mass/volume) 1 mg/dL NORMAL Urine leukocyte esterase detection by dipstick 3+ NEGATIVE Automated urine sediment erythrocyte count by microscopy (number/high power field) > [HPF] NRG Automated urine sediment leukocyte count by microscopy (number/high power field ) [HPF] NRG Bacteria detection in urine sediment by light microscopy FEW NRG Squamous epithelial cells detection in urine sediment by light microscopy 10-25 NRG Crystals detection in urine sediment by light microscopy NONE NRG Casts detection in urine sediment by light microscopy NONE NRG Mucus detection in urine sediment by light microscopy SMALL NRG Complete urinalysis with reflex to culture YES NR Comprehensive metabolic panel - 10/09/17 19:05 Serum or plasma sodium measurement (moles/volume) 135 mmol/L 135-145 Serum or plasma potassium measurement (moles/volume) 3.9 mmol/L 3.6-5.0 Serum or plasma chloride measurement (moles/volume) 101 mmol/L 98-107 Carbon dioxide 25 mmol/L 21-32 Serum or plasma anion gap determination (moles/volume) 9 mmol/L 5-14 Serum or plasma urea nitrogen measurement (mass/volume) 13 mg/dL 7-18 Serum or plasma creatinine measurement (mass/volume) 0.68 mg/dL 0.60-1.30 Serum or plasma urea nitrogen/creatinine mass ratio 19 NRG Serum or plasma creatinine measurement with calculation of estimated glomerular filtration rate > NRG Serum or plasma glucose measurement (mass/volume) 120 mg/dL 70-105 Serum or plasma calcium measurement (mass/volume) 9.4 mg/dL 8.5-10.1 Serum or plasma total bilirubin measurement (mass/volume) 0.3 mg/dL 0.1-1.0 Serum or plasma alkaline phosphatase measurement (enzymatic activity/volume) 126 U/L 40-136 Serum or plasma aspartate aminotransferase measurement (enzymatic activity/ volume) 17 U/L 5-34 Serum or plasma alanine aminotransferase measurement (enzymatic activity/volume ) 32 U/L 0-55 Serum or plasma protein measurement (mass/volume) 7.3 g/dL 6.4-8.2 Serum or plasma albumin measurement (mass/volume) 4.2 g/dL 3.2-4.5 Bacterial urine culture - 10/09/17 19:05 Bacterial urine culture [id number] NRG COLONY COUNT >100,000/ML NRG FTX;REPORTABLE SENSITIVITY REPORTED 10/11/17 7:35 NRG Bacterial susceptibility panel - 10/09/17 19:05 Gentamicin susceptibility test by minimum inhibitory concentration < = NRG Trimethoprim/sulfamethoxazole susceptibility test by minimum inhibitoryconcentration <= NRG Tobramycin susceptibility test by minimum inhibitory concentration < = NRG Cefazolin susceptibility test by minimum inhibitory concentration < = NRG Ceftriaxone susceptibility test by minimum inhibitory concentration <= NRG Piperacillin/tazobactam susceptibility test by minimum inhibitory concentration <= NRG Ciprofloxacin susceptibility test by minimum inhibitory concentration <= NRG Meropenem susceptibility test by minimum inhibitory concentration < = NRG Nitrofurantoin susceptibility test by minimum inhibitory concentration <= NRG Aztreonam susceptibility test by minimum inhibitory concentration < = NRG Encounters ACCT No. Visit Date/Time Discharge Status Pt. Type Provider Facility Loc./Unit Complaint [id number] 11/20/2014 12:06:00 11/20/2014 23:59:59 CLS Outpatient WILLIAN RODARTE APRN [id number] 11/13/2014 10:25:00 11/13/2014 23:59:59 CLS Outpatient SOLA HERNÁNDEZ APRN [id number] 10/09/2014 07:54:00 10/09/2014 23:59:59 CLS Outpatient SOLA HERNÁNDEZ APRN [id number] 09/19/2014 15:02:00 09/19/2014 23:59:59 CLS Outpatient SOLA HERNÁNDEZ APRN [id number] 05/23/2014 13:15:00 05/23/2014 23:59:59 CLS Outpatient DONTE KRISHNAN APRN [id number] 04/14/2014 12:20:00 04/14/2014 23:59:59 CLS Outpatient DONTE KRISHNAN APRN [id number] 12/12/2013 13:34:00 12/12/2013 23:59:59 CLS Outpatient CARMEN DEWEY DO [id number] 10/18/2013 14:43:00 10/18/2013 23:59:59 CLS Outpatient CARMEN DEWEY DO [id number] 10/10/2013 11:08:00 10/10/2013 23:59:59 CLS Outpatient SHAD FERNANDO APRN [id number] 08/16/2013 14:48:00 08/16/2013 23:59:59 CLS Outpatient DONTE KRISHNAN APRN [id number] 10/30/2012 10:12:00 10/30/2012 23:59:59 CLS Outpatient MART FENG APRN [id number] 09/25/2012 16:15:00 09/25/2012 23:59:59 CLS Outpatient [id number] 08/31/2012 08:27:00 08/31/2012 23:59:59 CLS Outpatient 121 02/29/2012 15:23:00 02/29/2012 23:59:59 CLS Outpatient [id number] 10/11/2017 13:25:00 10/11/2017 23:59:59 CLS Outpatient ELPIDIO DIAZ MD [facility] RAD RIGHT URETAL STONE [id number] 10/09/2017 18:27:00 10/09/2017 21:02:00 DIS Outpatient SARMAD CORONADO DO [facility] ER BACK PAIN/BLOOD IN URINE [id number] 03/25/2016 07:55:00 03/25/2016 08:51:00 DIS Outpatient LEEANNA SEXTON MD [facility] CARD DISC DISORDER [id number] 12/01/2015 07:39:00 12/01/2015 23:59:59 CLS Outpatient SHELLIE SCHNEIDER MD, FACC, FACP CCDS [facility] CARD TACHYCARDIA, CHEST DISCOMFORT [id number] 11/27/2015 10:29:00 11/27/2015 23:59:59 CLS Outpatient SHELLIE SCHNEIDER MD, FACC, FACP CCDS [facility] CARD TACHYCARDIA, HTN CHEST DISCOMFORT [id number] 11/26/2015 08:33:00 11/26/2015 23:59:59 CLS Outpatient SHELLIE SCHNEIDER MD, FACC, FACP CCDS [facility] CARD CHEST DISCOMFORT [id number] 08/12/2015 08:22:00 08/12/2015 23:59:59 CLS Outpatient ONELIA VU MD [facility] RAD DYSPHASIA,GLOBUS SENSATION [id number] 08/10/2015 08:10:00 08/10/2015 23:59:59 CLS Outpatient ONELIA VU MD [facility] LAB DYSPHAGIA [id number] 04/24/2015 08:00:00 04/28/2015 13:33:00 DIS Outpatient LEEANNA SEXTON MD [facility] REHAB LUMBAGO [id number] 03/23/2015 13:03:00 03/23/2015 14:01:00 DIS Outpatient LEEANNA SEXTON MD [facility] CARD DDD LUMBAR [id number] 03/20/2015 08:56:00 03/20/2015 11:04:00 DIS Emergency NIVIA FRANCE MD [facility] ER POSS KIDNEY STONE [id number] 03/02/2015 12:12:00 03/02/2015 23:59:59 CLS Outpatient LEEANNA SEXTON MD [facility] CARD DD LUMBAR [id number] 02/26/2015 08:03:00 02/26/2015 23:59:59 CLS Outpatient LEEANNA SEXTON MD [facility] RAD LUMBAGO [id number] 11/10/2014 18:58:00 11/10/2014 23:59:59 CLS Outpatient DONTE EDEN WAFER MOUNTER [facility] QUICK [id number] 10/10/2013 12:22:00 10/10/2013 23:59:59 CLS Outpatient SHAD FERNANDO [facility] RAD RT ARM SWELLING, TINGLING [id number] 06/25/2012 08:06:00 Document Registration [id number] 10/08/2011 19:30:00 Document Registration [id number] 04/08/2011 05:35:00 Document Registration [id number] 04/06/2011 09:30:00 Document Registration [id number] 03/16/2011 16:30:00 Document Registration [id number] 03/16/2011 10:18:00 Document Registration [id number] 03/23/2010 14:56:00 Document Registration [id number] 16:10:00 Document Registration
[2017-10-17 07:44] VITALS: BP 168/108
--- NOTE | 2017-10-17 07:58 | Progress Note-Post Operative ---
Post-Operative Progess Note Surgeon (s)/Customer Service Driver (s) Surgeon ELPIDIO DIAZ MD Customer Service Driver: N/A Pre-Operative Diagnosis RT DISTAL AND BILATERAL RENAL STONES Post-Operative Diagnosis SAME Procedure & Operative Findings Date of Procedure 10/17/17 Procedure Performed/Findings RT URETEROSCOPY WITH STONE BASKET Anesthesia Type GENERAL Estimated Blood Loss Estimated blood loss (mL): N/A Specimens/Packing Specimens Removed STONE Packing: N/A ELPIDIO DIAZ MD Oct 17, 2017 7:58 am
--- NOTE | 2017-10-17 07:58 | Progress Note-Pre Operative ---
Pre-Operative Progress Note H&P Reviewed The H&P was reviewed, patient examined and no changes noted. Date Seen by Provider: Oct 17, 2017 Time Seen by Provider: 07:57 Date H&P Reviewed: Oct 17, 2017 Time H&P Reviewed: 07:57 Pre-Operative Diagnosis: RT DISTAL AND BILATERAL RENAL STONES ELPIDIO DIAZ MD Oct 17, 2017 7:57 am
[2017-10-17] MEDS ORDERED: ONDANSETRON 4 MG/2 ML (SDV) Z0FRAN IV ONE (08:00)
[2017-10-17] MEDS ORDERED: FAMOTIDINE 20MG/2ML IV (PEPCID) IV ONE (08:00)
[2017-10-17] MEDS ORDERED: ROCURONIUM 10 MG/ML 5 ML SYRINGE IV ONE (08:06)
[2017-10-17] MEDS ORDERED: MIDAZOLAM 2 MG/2 ML (VERSED) VIAL ONE (08:06)
[2017-10-17] MEDS ORDERED: SEVOFLURANE (ULTANE) 15 ML INHAL SOLN ONE ×2 (08:06→08:40)
[2017-10-17] MEDS ORDERED: proPOfol 200 MG/20 ML (DIPRIVAN) VIAL IV ONE (08:06)
[2017-10-17] MEDS ORDERED: KETOROLAC 30 MG/ML VIAL ONE (08:06)
[2017-10-17] MEDS ORDERED: LIDOCAINE PF 2% 5 ML (XYLOCAINE) VIAL ONE (08:06)
[2017-10-17] MEDS ORDERED: fentaNYL INJECTION 100 MCG/2 ML AMP ONE (08:07)
[2017-10-17] MEDS ORDERED: LACTATED RINGERS 1,000 ML IV PRN (08:44)
[2017-10-17] MEDS ORDERED: GLYCOPYRROLATE 0.2 MG/ML (ROBINUL) 2 ML VIAL ONE (09:04)
[2017-10-17] MEDS ORDERED: NEOSTIGMINE 1 MG/ML 5 ML SYRINGE ONE (09:04)
--- NOTE | 2017-10-17 09:10 | Discharge Inst-Urology ---
Discharge Inst-Urology Patient Instructions/Follow Up Plan Please make appointment to been seen in office in 3 weeks. Stone for analysis post seen by patient Increase oral fluids for 48 hours and then as needed. Diet and Activity as tolerated. If questions or concerns contact your physician Or seek help at emergency department. ELPIDIO DIAZ MD Oct 17, 2017 9:10 am
[2017-10-17] MEDS ORDERED: morphine INJ 10 MG/ML 1ML (SYR OR VIAL) IVP PRN (09:30)
[2017-10-17] MEDS ORDERED: MEPERIDINE (DEMEROL) INJ 50 MG/ML IVP PRN (09:30)
[2017-10-17] MEDS ORDERED: ONDANSETRON 4 MG/2 ML (SDV) Z0FRAN IVP PRN (09:30)
[2017-10-17 10:20] VITALS: BP 133/87
[2017-10-17] MEDS ORDERED: HYDROcodone/APAP 10 MG/325 MG (LORTAB) TAB PO ONE (10:45)
[2017-10-17 10:50] VITALS: BP 133/86
[2017-10-17 11:16] VITALS: BP 133/86
--- NOTE | 2017-10-17 13:28 | Anesthesia-General Post-Op ---
General Patient Condition Mental Status/LOC: Same as Preop Cardiovascular: Satisfactory Nausea/Vomiting: Absent Respiratory: Satisfactory Pain: Controlled Complications: Absent Post Op Complications Complications None Follow Up Care/Instructions Patient Instructions None needed. Anesthesia/Patient Condition Patient Condition Patient was seen prior to discharge and was doing well, no complaints, stable vital signs, no apparent adverse anesthesia problems. HENRI MCCALL DO Oct 17, 2017 13:28
--- NOTE | 2017-10-17 13:40 | OPERATIVE REPORT ---
DATE OF SERVICE: 10/17/2017 PREOPERATIVE DIAGNOSES: Right distal ureteral stone and bilateral renal stones. POSTOPERATIVE DIAGNOSES: Right distal ureteral stone and bilateral renal stones. OPERATION PERFORMED: Right ureteroscopy with stone basket. SURGEON: Jose Cruz Diaz MD ANESTHESIA: General. COMPLICATIONS: None. PROCEDURE: Under satisfactory general anesthesia, the patient in lithotomy position, genitalia were prepped and draped in usual sterile fashion. Cystoscope was introduced in the bladder. Bladder was essentially normal except for some swelling in the right intramural portion. I went ahead and dilated the right ureteral orifice and intramural portion to accommodate the 6.9-Samoan semi-rigid ureteroscope and visualized the stone in the intramural portion engaged this with a 3-Samoan Sosa basket and extracted it completely. Went back with ureteroscope, went all the way up to the renal pelvis, observed antegrade and retrograde. There were no more stones and no problems, no need for stent. I removed the ureteroscope, reinserted the cystoscope to empty the bladder. The patient tolerated the procedure and anesthesia well and was sent to recovery room in stable condition. Job ID: [id number] DocumentID: [id number] Dictated Date: 10/17/2017 09:12:49 Rib Matcher And Fitter Date: 10/17/2017 13:40:13 Dictated By: JOSE CRUZ DIAZ MD
--- NOTE | 2017-10-17 16:01 | Diagnostic Imaging Report ---
EXAMINATION: Supine abdomen at 8:07 a.m. INDICATION: Right ureteral stone. FINDINGS: The prior exam of 10/11/2017 noted a faint calcific density in the medial right hemipelvis. That calcific density is not identified on this study. This may have represented a small calculus which has subsequently passed. No other pathological calcification is identified. There is gas in both the large and small bowel in a nonspecific fashion. There is no sign of a bowel obstruction. There is no mass or organomegaly appreciated. The osseous structures are intact. IMPRESSION: The small calcific density low in the pelvis on the right seen previously is no longer evident. Clinical followup is recommended. Dictated by: Dictated on workstation # [id number]
== END 2017-10-17 11:15 | disposition home or self-care (01) ==
LOC: SDC 07:23
PROVIDERS: ATTEND Urology
DX: N20.2 Calculus of kidney with calculus of ureter (principal); I10 Essential (primary) hypertension; E11.9 Type 2 diabetes mellitus without complications; F32.9 Major depressive disorder, single episode, unspecified; F17.210 Nicotine dependence, cigarettes, uncomplicated; Z79.899 Other long term (current) drug therapy
CPT/HCPCS: 74018; 87081

== ENCOUNTER → 2018-06-22 | Outpatient (CLI) | payer OTHER ==
[~2018-06-22] MED LIST changes: -GEMF600T3 PO; +GEMF600T4 PO; +METF-397 PO; -METF500T4 PO; -ROPI3TAB2 PO; +ROPI3TAB4 PO
--- NOTE | 2018-06-26 08:12 | Diagnostic Imaging Report ---
INDICATION: Screening. Digital mammogram bilateral screening with 3-D tomosynthesis. This study was compared to the prior exam of 10/11/2007. At this time there are no current complaints. The current study was also evaluated with a Computer Aided Detection (CAD) system. FINDINGS: There are scattered fibroglandular densities in both breasts which could obscure a lesion. Overall, there does not appear to have been any significant change when compared to the prior exam. No primary or secondary sign of malignancy is noted. IMPRESSION: 1. There is no radiographic evidence for malignancy. 2. The patient should have her annual screening mammogram on schedule in June of 2019. ACR BI-RADS Category 1: Negative. Result letter will be mailed to the patient. Note: At least 10% of breast cancer is not imaged by mammography. Dictated by: Dictated on workstation # [id number]
== END ==
LOC: RAD 09:55
PROVIDERS: ATTEND Nurse Practitioner Primary Care
DX: Z12.31 Encounter for screening mammogram for malignant neoplasm of breast (principal)
CPT/HCPCS: 77067

== ENCOUNTER → 2018-06-22 | Outpatient (CLI) | payer OTHER ==
--- NOTE | 2018-06-22 11:15 | Diagnostic Imaging Report ---
PROCEDURE: US Non-ob pelvis comp/trans. TECHNIQUE: Multiple realtime grayscale images were obtained of the pelvis in various projections endovaginally. Transabdominal imaging was also performed. INDICATION: Uterine enlargement and polycystic ovarian syndrome. FINDINGS: The uterus measures 5.9 x 3.3 x 2.6 cm. Endometrium is 4 mm in thickness. No myometrial mass is detected. Ovaries cannot be visualized due to overlying bowel gas. No adnexal mass or free fluid is seen. IMPRESSION: Nonvisualized ovaries. The study is otherwise unremarkable. Dictated by: Dictated on workstation # [id number]
== END ==
LOC: RAD 10:00
PROVIDERS: ATTEND Nurse Practitioner Primary Care
DX: N85.2 Hypertrophy of uterus (principal)
CPT/HCPCS: 76830; 76856

== ENCOUNTER → 2018-09-06 | Outpatient (CLI) | payer OTHER ==
[~2018-09-06] MED LIST changes: -GEMF600T4 PO; +GEMF600T8 PO
--- NOTE | 2018-09-06 16:33 | Diagnostic Imaging Report ---
PROCEDURE: MRI lumbar spine. TECHNIQUE: Multiplanar, multisequence MRI of the lumbar spine was performed without contrast. INDICATION: Back pain. COMPARISON: Comparison made to prior examination 06/25/2012. FINDINGS: There is straightening of the normal lumbar lordosis. The vertebral body heights are well-maintained. There is no spondylolysis or spondylolisthesis. No fractures are identified. Conus medullaris is seen at L1 and is normal in appearance. T12-L1 is unremarkable. The L1-2 disc is normal in height, signal intensity and morphology. At L2-3 there is a focal disc extrusion which may be partially sequestered just above the level of the disc on the left. There is effacement of ventral thecal sac and some mass effect on the left neural foramina and exiting nerve root. At L3-4 there is mild annular bulging and mild facet disease. At L4-5 there is minimal annular bulging and mild facet disease. At L5-S1 there are degenerative changes of the endplates. There is some annular bulging. There is mild bilateral neural foraminal encroachment left greater than right. There is also encroachment upon the left lateral recess. The abdominal aorta is nonaneurysmal. The visualized kidneys are unremarkable. IMPRESSION: 1. Unchanged focal disc protrusion with cranial migration slightly to the left at L2-3. 2. Otherwise mild lumbar spondylosis as described. Dictated by: Dictated on workstation # [id number]
== END ==
LOC: RAD 15:04
PROVIDERS: ATTEND Nurse Practitioner Community Health
DX: M51.37 Other intervertebral disc degeneration, lumbosacral region (principal); M51.26 Other intervertebral disc displacement, lumbar region; M47.816 Spondylosis without myelopathy or radiculopathy, lumbar region
CPT/HCPCS: 72148

== ENCOUNTER 2019-09-16 18:29 | Emergency (ER) | payer OTHER ==
[~2019-09-16] VITALS: Ht 160 cm; Wt 97.5 kg
[~2019-09-16 18:29] MED LIST changes: -TAMS0.4C98 PO; +TMSL.4C PO
[2019-09-16] MEDS ORDERED: NS IV 1000 ML 1,000 ML IV SCH (18:46)
[2019-09-16 18:54] LABS: BASOPHILS % (AUTO) 0 % (0-10); EOSINOPHILS % (AUTO) 0 % (0-10); HEMATOCRIT 40 % (35-52); LYMPHOCYTES # (AUTO) 0.8 X 10^3 (1.0-4.0); LYMPHOCYTES % (AUTO) 9 % (12-44); MEAN CORPUSCULAR HEMOGLOBIN 31 PG (25-34); MEAN CORPUSCULAR HGB CONC 33 G/DL (32-36); MEAN CORPUSCULAR VOLUME 96 FL (80-99); MEAN PLATELET VOLUME 10.1 FL (7.4-10.4); MONOCYTES # (AUTO) 0.1 X 10^3 (0.0-1.0); MONOCYTES % (AUTO) 1 % (0-12); NEUTROPHILS # (AUTO) 7.7 X 10^3 (1.8-7.8); NEUTROPHILS % (AUTO) 90 % (42-75); PLATELET COUNT 383 10^3/uL (130-400); RED CELL DISTRIBUTION WIDTH 12.9 % (10.0-14.5); WHITE BLOOD COUNT 8.6 10^3/uL (4.3-11.0)
[2019-09-16] MEDS ORDERED: ACETAMINOPHEN 500 MG TAB (TYLENOL) PO ONE (19:15)
[2019-09-16 19:17] LABS: ALBUMIN 4.2 GM/DL (3.2-4.5); BILIRUBIN,TOTAL 0.1 MG/DL (0.1-1.0); CALCIUM 9.4 MG/DL (8.5-10.1); CREATININE SERUM 1.18 MG/DL (0.60-1.30); MAGNESIUM 1.8 MG/DL (1.6-2.4); POTASSIUM 4.5 MMOL/L (3.6-5.0); TOTAL PROTEIN 7.8 GM/DL (6.4-8.2)
--- NOTE | 2019-09-16 19:18 | ED General ---
General Chief Complaint: Glucose Problems Stated Complaint: BS AMBER GARAY DR CARL STATES SHE MIGHT HAVE STREP Nursing Triage Note: PT AMB TO [facility] 5 WITH COMPLAINT OF HIGH BLOOD SUGAR. STATES TOOK SUGAR AT HOME AND READ "HIGH". PT STATES SHE WAS GIVEN A STEROID SHOT AT [facility] FOR POSSIBLE STREP. Nursing Sepsis Screen: No Definite Risk Source of Information: Patient Exam Limitations: No Limitations History of Present Illness Date Seen by Provider: Sep 16, 2019 Time Seen by Provider: 18:51 Initial Comments This 48-year-old woman presents to the emergency room with complaints of ear pain that started on Monday and developed into sore throat. She went to the [facility] clinic today and was suspected of having strep throat. She was started on antibiotics and given a steroid injection. Now her blood sugars are extremely high and she feels shaky. She is rather tachycardic on presentation. Heart rate is around 130 and his sinus rhythm on the monitor. She denies any fever. She reports "pus pockets" on her throat. She does have type II diabetes and takes metformin. Symptoms started on September 13. She feels thirsty. Allergies and Home Medications Allergies Coded Allergies: No Known Drug Allergies (Verified , 05/23/08) Home Medications Duloxetine HCl 60 Mg Capsule.dr, 60 MG PO DAILY, (Reported) Hydrocodone/Acetaminophen 1 Each Tablet, 1 EACH PO TID, (Reported) Ketorolac Tromethamine 10 Mg Tablet, 10 MG PO Q6H PRN for PAIN-MILD TO MODERATE, (Reported) Metoprolol Tartrate 100 Mg Tablet, 100 MG PO BID, (Reported) Nitrofurantoin Macrocrystal 100 Mg Capsule, 100 MG PO BID, (Reported) Ondansetron 4 Mg Tab.rapdis, 4 MG PO Q4H PRN for NAUSEA/VOMITING-1ST LINE, (Reported) Ropinirole HCl 3 Mg Tablet, 3 MG PO DAILY, (Reported) Tamsulosin HCl 0.4 Mg Cap.er.24h, 0.4 MG PO DAILY, (Reported) Patient Home Medication List Home Medication List Reviewed: Yes Review of Systems Review of Systems Constitutional: see HPI EENTM: see HPI Respiratory: no symptoms reported Cardiovascular: see HPI Gastrointestinal: see HPI Genitourinary: no symptoms reported : No Musculoskeletal: no symptoms reported Skin: no symptoms reported Psychiatric/Neurological: No Symptoms Reported Hematologic/Lymphatic: No Symptoms Reported Immunological/Allergic: no symptoms reported Past Zmywhym-Kmadsg-Voknsv Hx Patient Social History Alcohol Use: Denies Use Recreational Drug Use: No Smoking Status: Current Everyday Smoker Type Used: Cigarettes Recent Foreign Travel: No Contact w/Someone Who Travel: No Recent Infectious Disease Expo: No Recent Hopitalizations: No Immunizations Up To Date Tetanus Booster (TDap): Unknown PED Vaccines UTD: Yes Seasonal Allergies Seasonal Allergies: No Past Medical History Surgeries: Yes (LITHOTRIPSY X 7; , ) Adenoidectomy, Section, Gallbladder, Renal, Tonsillectomy Respiratory: No Cardiac: Yes High Cholesterol, Hypertension, Palpitations Neurological: No : No Last Menstrual Period: Sep 16, 2004 Reproductive Disorders: Yes (NO PERIOD X 10 YEARS, PER PT ON 10/09/17) Female Reproductive Disorders: Menstrual Problems, Polycystic Ovarian Dis Sexually Transmitted Disease: Yes (18, chlamydia) Genitourinary: Yes Kidney Stones Gastrointestinal: No Musculoskeletal: Yes Chronic Back Pain Endocrine: Yes (diet controlled) Diabetes, Non-Insulin dep HEENT: No Cancer: No Psychosocial: Yes Anxiety Integumentary: No Blood Disorders: No Family Medical History Reviewed Nursing Family Hx No Pertinent Family Hx Physical Exam Vital Signs Vital Signs - First Documented 09/16/19 18:34 Temp 37.6 Pulse 141 Resp 20 B/P (MAP) 152/95 (114) Pulse Ox 97 O2 Delivery Room Air Capillary Refill : Less Than 3 Seconds Height, Weight, BMI Height: 5'3.00" Weight: 224lbs. 0.0oz. 101.235369sw; 38.00 BMI Method:Stated General Appearance: No Apparent Distress, WD/WN, Obese HEENT: PERRL/EOMI, TMs Normal, Normal ENT Inspection, Other (mild erythema and petechiae on the oropharynx and soft palate) Neck: Normal Inspection, Supple Respiratory: Lungs Clear, Normal Breath Sounds, No Accessory Muscle Use, No Respiratory Distress Cardiovascular: No Edema, No Murmur, Tachycardia (regular rhythm) Gastrointestinal: Normal Bowel Sounds, Non Tender, Soft Extremity: Normal Inspection, No Pedal Edema Neurologic/Psychiatric: Alert, Oriented x3, No Motor/Sensory Deficits, Normal Mood/Affect, clinical scientist II-XII Norm as Tested Skin: Normal Color, Warm/Dry Progress/Results/Core Measures Suspected Sepsis Recent Fever Within 48 Hours: No Infection Criteria Present: None New/Unexplained Altered Menta: No Sepsis Screen: No Definite Risk SIRS Temperature: Pulse: 141 Respiratory Rate: 20 Laboratory Tests 09/16/19 18:44: White Blood Count 8.6 Blood Pressure 152 /95 Mean: 114 Laboratory Tests 09/16/19 18:44: Creatinine 1.18, Platelet Count 383, Total Bilirubin 0.1 Results/Orders Lab Results Laboratory Tests Test 09/16/19 18:39 09/16/19 18:44 09/16/19 19:30 09/16/19 20:07 Range/Units Glucometer 559 *H 396 H 70-110 MG/DL White Blood Count 8.6 4.3-11.0 10^3/uL Red Blood Count 4.14 L 4.35-5.85 10^6/uL Hemoglobin 13.0 11.5-16.0 G/DL Hematocrit 40 35-52 % Mean Corpuscular Volume 96 80-99 FL Mean Corpuscular Hemoglobin 31 25-34 PG Mean Corpuscular Hemoglobin Concent 33 32-36 G/DL Red Cell Distribution Width 12.9 10.0-14.5 % Platelet Count 383 130-400 10^3/uL Mean Platelet Volume 10.1 7.4-10.4 FL Neutrophils (%) (Auto) 90 H 42-75 % Lymphocytes (%) (Auto) 9 L 12-44 % Monocytes (%) (Auto) 1 0-12 % Eosinophils (%) (Auto) 0 0-10 % Basophils (%) (Auto) 0 0-10 % Neutrophils # (Auto) 7.7 1.8-7.8 X 10^3 Lymphocytes # (Auto) 0.8 L 1.0-4.0 X 10^3 Monocytes # (Auto) 0.1 0.0-1.0 X 10^3 Eosinophils # (Auto) 0.0 0.0-0.3 10^3/uL Basophils # (Auto) 0.0 0.0-0.1 10^3/uL Neutrophils % (Manual) 88 % Lymphocytes % (Manual) 8 % Monocytes % (Manual) 1 % Band Neutrophils 3 % Blood Morphology Comment NORMAL Sodium Level 131 L 135-145 MMOL/L Potassium Level 4.5 3.6-5.0 MMOL/L Chloride Level 99 98-107 MMOL/L Carbon Dioxide Level 13 L 21-32 MMOL/L Anion Gap 19 H 5-14 MMOL/L Blood Urea Nitrogen 15 7-18 MG/DL Creatinine 1.18 0.60-1.30 MG/DL Estimat Glomerular Filtration Rate 49 BUN/Creatinine Ratio 13 Glucose Level 586 *H 70-105 MG/DL Calcium Level 9.4 8.5-10.1 MG/DL Corrected Calcium 9.2 8.5-10.1 MG/DL Magnesium Level 1.8 1.6-2.4 MG/DL Total Bilirubin 0.1 0.1-1.0 MG/DL Aspartate Amino Transf (AST/SGOT) 31 5-34 U/L Alanine Aminotransferase (ALT/SGPT) 56 H 0-55 U/L Alkaline Phosphatase 145 H 40-136 U/L Total Protein 7.8 6.4-8.2 GM/DL Albumin 4.2 3.2-4.5 GM/DL Human Chorionic Gonadotropin, Quant 8 H <5 MIU/ML Serum Test, Qualitative POSITIVE NEGATIVE Group A Streptococcus Screen NEGATIVE NEGATIVE Urine Color YELLOW Urine Clarity CLEAR Urine pH 5.5 5-9 Urine Specific [place] 1.010 L 1.016-1.022 Urine Protein NEGATIVE NEGATIVE Urine Glucose (UA) 3+ H NEGATIVE Urine Ketones TRACE H NEGATIVE Urine Nitrite NEGATIVE NEGATIVE Urine Bilirubin NEGATIVE NEGATIVE Urine Urobilinogen 0.2 < = 1.0 MG/DL Urine Leukocyte Esterase NEGATIVE NEGATIVE Urine RBC (Auto) NEGATIVE NEGATIVE Urine RBC NONE /HPF Urine WBC NONE /HPF Urine Squamous Epithelial Cells 2-5 /HPF Urine Crystals PRESENT H /LPF Urine Amorphous Sediment FEW STEVEN URATES H /LPF Urine Bacteria TRACE /HPF Urine Casts NONE /LPF Urine Mucus NEGATIVE /LPF Urine Culture Indicated NO Micro Results Microbiology 09/16/19 Influenza Types A,B Antigen (WARD) - Final, Complete My Orders Orders - SULAIMAN BELLAMY MD Rapid Strep A Screen (09/16/19 18:32) Influenza A And B Antigens (09/16/19 18:32) Accucheck Stat ONCE (09/16/19 18:32) Accucheck Stat ONCE (09/16/19 18:46) Accucheck Stat ONCE (09/16/19 18:46) Cbc With Automated Diff (09/16/19 18:46) Comprehensive Metabolic Panel (09/16/19 18:46) Hcg,Qualitative Serum (09/16/19 18:46) Magnesium (09/16/19 18:46) Ua Culture If Indicated (09/16/19 18:46) Ed Iv/Invasive Line Start (09/16/19 18:46) Ns Iv 1000 Ml (Sodium Chloride 0.9%) (09/16/19 18:46) Manual Differential (09/16/19 18:44) Acetaminophen Tablet (Tylenol Tablet) (09/16/19 19:15) Hcg,Quantitative (09/16/19 19:27) Ns Iv 1000 Ml (Sodium Chloride 0.9%) (09/16/19 19:31) Lactated Ringers (Lr 1000 Ml Iv Solution (09/16/19 20:16) Medications Given in ED Current Medications Medications Dose Ordered Sig/Wale Route Start Time Stop Time Status Last Admin Dose Admin Acetaminophen 1,000 mg ONCE ONCE PO 09/16/19 19:15 09/16/19 19:16 DC 09/16/19 19:27 1,000 MG Lactated Ringer's 1,000 ml @ 0 mls/hr Q0M ONCE IV 09/16/19 20:16 09/16/19 20:17 DC 09/16/19 20:38 0 MLS/HR Sodium Chloride 1,000 ml @ 0 mls/hr Q0M ONCE IV 09/16/19 19:31 09/16/19 19:32 DC 09/16/19 19:35 0 MLS/HR Vital Signs/I&O 09/16/19 18:34 Temp 37.6 Pulse 141 Resp 20 B/P (MAP) 152/95 (114) Pulse Ox 97 O2 Delivery Room Air Capillary Refill : Less Than 3 Seconds Blood Pressure Mean: 114 Point of Care Testing Finger Stick Blood Glucose: 559 Blood Glucose Action Taken: DR BELLAMY NOTIFIED Progress Note #1: Time: 19:25 Progress Note Patient was seen and examined shortly after arrival. Tachycardia was noted and IV fluids were initiated. We will monitor her sugars after the first liter of IV fluid and administer insulin if necessary. Influenza screen was positive and rapid strep screen was negative. Patient is too far into her illness for Tamiflu to be indicated. Tylenol is also being administered which should help with her tachycardia and shakiness. Progress Note #2: Time: 20:22 Progress Note Patient's blood sugars trending down nicely to 396 after 1.5 L normal saline. We will add a third liter of IV fluid with LR and repeat blood sugar after that. Interestingly the patient's serum test returned positive. Lab reports this was a very faint positive. Patient states she has not been sexually active in 10 years to this is perplexing to her. A serum hCG quantitative value was only 8. I stressed the importance of following up with her primary care provider to follow a trend on this. Progress Note #3: Time: 21:18 Progress Note Blood sugar continued to trend down after a third liter of IV fluid. It was 336 prior to discharge. Patient did also take an extra metformin for total evening dose of 1000 mg. I discussed the case and follow-up with Dr. Avila. She will help ensure patient gets close follow-up. Patient was discharged home in improved condition. Departure Impression Primary Impression: Influenza A Additional Impressions: Tachycardia Hyperglycemia due to type 2 diabetes mellitus Qualified Codes: E11.65 - Type 2 diabetes mellitus with hyperglycemia Positive test Disposition: 01 HOME, SELF-CARE Condition: Improved Departure-Patient Inst. Referrals: CARMEN AVILA DO (PCP) Primary Care Physician MICHELLE VANN (Family) Primary Care Physician Patient Instructions: Flu, Hyperglycemia, Adult Add. Discharge Instructions: Drink plenty of sugar free clear liquids to stay well-hydrated. Eat a very low carbohydrate, low sugar diet. Increase your metformin to 1000 mg twice daily until your blood sugars stabilize. Monitor your blood sugars very closely, check them fasting in the morning and 2 hours after each meal. If you have multiple measurements greater than 250, please call your primary care provider promptly. You had a positive hCG test (blood test). You need to follow-up at the clinic later this week and have this measurement repeated. Since you are not sexually active, it is very important that this be followed promptly. Please call the clinic in the morning and inform them of this situation and request follow-up. Requests to speak with nursing staff if necessary to get this accomplished. You may take Tylenol (acetaminophen) up to 1000 mg every 6 hours as needed and/or ibuprofen up to 600 mg every 6 hours as needed to control pain and fever. Do not return to work or school until you are free of fever and flu symptoms for at least 24 hours without use of fever reducing medications. Return to the emergency room if you have worsening symptoms despite taking these measures. All discharge instructions reviewed with patient and/or family. Voiced understanding. Work/School Note: Work Release Form Date Seen in the Emergency Department: Sep 16, 2019 Return to Work: Sep 18, 2019 Restrictions: Return-No Vomiting(24hrs) Other Restrictions Listed Below: May return to work no earlier than . Must be free of fever 24 hrs. Copy Copies To 1: CARMEN AVILA JOSHUA T MD Sep 16, 2019 19:18
[2019-09-16 19:20] LABS: BAND NEUTROPHILS 3 %; LYMPHOCYTES % (MANUAL) 8 %; MONOCYTES % (MANUAL) 1 %; NEUTROPHILS % (MANUAL) 88 %; RBC MORPH NORMAL
[2019-09-16] MEDS ORDERED: NS IV 1000 ML 1,000 ML IV ONE (19:31)
[2019-09-16 19:38] LABS: BILIRUBIN,URINE NEGATIVE (NEGATIVE); CLARITY,URINE CLEAR; COLOR,URINE YELLOW; GLUCOSE, URINE (UA) 3+ (NEGATIVE); KETONES,URINE TRACE (NEGATIVE); LEUKOCYTE ESTERASE ,URINE NEGATIVE (NEGATIVE); NITRITE,URINE NEGATIVE (NEGATIVE); PH,URINE 5.5 (5-9); PROTEIN,URINE NEGATIVE (NEGATIVE)
[2019-09-16 20:02] LABS: BACTERIA,URINE TRACE /HPF
[2019-09-16 20:03] LABS: AMORPHOUS SEDIMENT,UR FEW AMOR URATES /LPF
[2019-09-16] MEDS ORDERED: LACTATED RINGERS 1,000 ML IV ONE (20:16)
[2019-09-16 21:17] VITALS: BP 147/88
== END 2019-09-16 21:17 | disposition home or self-care (01) ==
LOC: EDUNIT# 18:29 → ER 18:31
DX: J10.1 Influenza due to other identified influenza virus with other respiratory manifestations (principal); E11.65 Type 2 diabetes mellitus with hyperglycemia; R00.0 Tachycardia, unspecified; I10 Essential (primary) hypertension; F41.9 Anxiety disorder, unspecified; F17.210 Nicotine dependence, cigarettes, uncomplicated; Z32.01 Encounter for pregnancy test, result positive; Z79.84 Long term (current) use of oral hypoglycemic drugs
CPT/HCPCS: 36415; 80053; 81000; 82962; 83735; 84702; 84703; 85007; 85027; 87430; 87804; 96360